=== PATIENT | female | born 1965 | race Caucasian/White ===

== ENCOUNTER 2016-11-05 13:08 | Emergency (ER) | payer OTHER ==
--- NOTE | 2016-11-05 14:49 | RAD ---
INDICATION: Short of breath COMPARISON: April 25, 2016 TECHNIQUE: PA and lateral dual-energy views were obtained. FINDINGS: Bones/Soft Tissues: There are no acute bony findings. Cardiomediastinal: The cardiomediastinal silhouette is normal. Lungs: There are no infiltrates. Pleura: There are no pleural effusions. Other: None IMPRESSION: NO ACTIVE DISEASE.
[2016-11-05 14:59] LABS: Urine Bacteria 1+ (Absent); Urine Bilirubin Negative (Negative); Urine Glucose Negative (Negative); Urine Nitrite Negative (Negative)
[2016-11-05 15:19] LABS: Hematocrit 41 % (35-47); Hemoglobin 13.7 g/dl (12.0-16.0); Mean Corpuscular HGB Conc 34 g/dl (31-36); Mean Corpuscular Hemoglobin 29 pg (27-31); Mean Corpuscular Volume 87 fL (80-97); Mean Platelet Volume 8 um3 (7.4-10.4); Red Blood Count 4.73 10^6/ul (4.0-5.4); Red Cell Distribution Width 14 % (10.5-15); White Blood Count 9.6 10^3/ul (3.5-10.8)
[2016-11-05 15:35] LABS: Albumin 4.5 g/dL (3.2-5.2); BUN/Creatinine Ratio 11.4 (8-20); Calcium 10.2 mg/dL (8.6-10.3); EGFR African American 98.7 (>60); EGFR Non-African American 76.7 (>60); Globulin 3.6 g/dL (2-4); Potassium 4.1 mmol/L (3.5-5.0); Total Bilirubin 0.3 mg/dL (0.2-1.0); Total Protein 8.1 g/dL (6.4-8.9)
[2016-11-05 16:31] VITALS: BP 134/74
--- NOTE | 2016-11-05 16:34 | RAD ---
INDICATION: Headache. COMPARISON: Comparison is made with a prior CT of the brain from April 25, 2016. TECHNIQUE: Contiguous axial sections of the brain were obtained from the skull base to the vertex without contrast. FINDINGS: The ventricles, cisterns and sulci are within normal limits. No significant focal abnormality or mass effect is seen. There is no evidence for hemorrhage. No significant focal osseous abnormality is seen. There is a mucous retention cyst or polyp present within the right maxillary sinus which is partially visualized measuring at least 1.2 cm in size. The visualized portion of the paranasal sinuses and mastoid air cells otherwise appear clear. IMPRESSION: NO EVIDENCE FOR GROSS ACUTE INFARCT, MASS EFFECT OR HEMORRHAGE.
== END 2016-11-05 17:29 | disposition home or self-care (01) ==
LOC: ED 13:08
DX: R06.00 Dyspnea, unspecified (principal)
CPT/HCPCS: 36415; 70450; 71020; 80053; 81003; 81015; 83605; 84484; 85025; 85379; 87086; 93005; 99282

== ENCOUNTER 2017-01-07 10:18 | Emergency (ER) | payer OTHER ==
--- NOTE | 2017-01-07 13:01 | RAD ---
Indication: Choking sensation. 2 views of the chest including dual energy PA views are reviewed and compared to previous exam dated November 05, 2016. No mediastinal shift is noted. Heart is of normal size and configuration. Lung snell are clear. IMPRESSION: No active cardiopulmonary disease is noted.
[2017-01-07 13:04] LABS: Hematocrit 44 % (35-47); Hemoglobin 14.5 g/dl (12.0-16.0); Mean Corpuscular HGB Conc 33 g/dl (31-36); Mean Corpuscular Hemoglobin 29 pg (27-31); Mean Corpuscular Volume 87 fL (80-97); Mean Platelet Volume 9 um3 (7.4-10.4); Red Blood Count 5.04 10^6/ul (4.0-5.4); Red Cell Distribution Width 14 % (10.5-15); White Blood Count 9.4 10^3/ul (3.5-10.8)
[2017-01-07 13:10] VITALS: BP 130/74
[2017-01-07 13:19] LABS: Albumin 4.9 g/dL (3.2-5.2); BUN/Creatinine Ratio 13.5 (8-20); Calcium 10.7 mg/dL (8.6-10.3); EGFR African American 78.8 (>60); EGFR Non-African American 61.3 (>60); Globulin 3.5 g/dL (2-4); Potassium 4.2 mmol/L (3.5-5.0); Total Bilirubin 0.3 mg/dL (0.2-1.0); Total Protein 8.4 g/dL (6.4-8.9)
--- NOTE | 2017-01-07 13:48 | ED ---
Shanice Hayes Matthew, scribed for Guru Guzmna MD on 01/07/17 at 1159 . Throat Pain/Nasal Congestion - HPI Summary HPI Summary: A 51 y/o female presents to the ED with intermittent throat tightness for the past month and she had an episode at 09:00 this morning. The episode started when she was sitting down talking. Shes had these symptoms before 2-3 times a day and they generally last 30-60 minutes. Associated symptoms include tingling in the hands bilaterally. The patient denies nausea, vomiting, SOB, dizziness, palpitations, diaphoresis, chest pain, and drooling. 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 Hx of bipolar disorder. She recently finished a course of Abx for bronchitis. - History of Current Complaint Chief Complaint: EDThroatPain Hx Obtained From: Patient Onset/Duration: Sudden Onset, Lasting Hours Severity: Mild Associated Signs And Symptoms: Negative: Dysphagia, FB Sensation, Drooling, Sinus Discomfort, Nasal Discharge Cough: None - Allergies/Home Medications Allergies/Adverse Reactions: Allergies Allergy/AdvReac Type Severity Reaction Status Date / Time Adhesive Tape Allergy Intermediate Rash Verified 12/31/16 18:16 Omeprazole [From Prilosec] Allergy Intermediate edema/hives Verified 12/31/16 18 :16 Pantoprazole [From Protonix] Allergy Intermediate Edema/hives Verified 12/31/16 18:16 Home Medications: Home Medications Albuterol HFA INHALER* [Ventolin HFA Inhaler*] 2 puff INH Q4H PRN 01/07/17 [ History Confirmed 01/07/17] Bupropion XL* [Wellbutrin XL *] 150 mg PO DAILY 01/07/17 [History Confirmed ] Calcium Carbonate-Cholecalcife [Calcium 500+D3 500-400 mg-Unit] 1 tab PO DAILY 01/07/17 [History Confirmed 01/07/17] Gemfibrozil TAB* [Lopid TAB*] 600 mg PO BID 01/07/17 [History Confirmed ] Levothyroxine TAB* [Synthroid TAB*] 88 mcg PO DAILY 01/07/17 [History Confirmed 01/07/17] OLANzapine TAB* [Zyprexa 10 MG TAB*] 20 mg PO BEDTIME 01/07/17 [History Confirmed 01/07/17] Zolpidem TAB* [Ambien TAB*] 10 mg PO BEDTIME PRN 01/07/17 [History Confirmed ] PMH/Surg Hx/FS Hx/Imm Hx Endocrine/Hematology History: Reports: Hx Thyroid Disease - hypo Denies: Hx Anticoagulant Therapy, Hx Diabetes Cardiovascular History: Denies: Hx Congestive Heart Failure, Hx Deep Vein Thrombosis, Hx Hypertension , Hx Myocardial Infarction, Hx Pacemaker/ICD Respiratory History: Reports: Hx Asthma - She has an "inhaler" but she has not used it for a "couple of months.", Hx Chronic Obstructive Pulmonary Disease ( COPD) Denies: Hx Lung Cancer, Hx Pneumonia, Hx Pulmonary Embolism GI History: Denies: Hx Gall Bladder Disease, Hx Gastrointestinal Bleed, Hx Ulcer, Hx Urosepsis History: Denies: Hx Kidney Stones, Hx Renal Disease Neurological History: Denies: Hx Dementia, Hx Migraine, Hx Seizures, Hx Transient Ischemic Attacks (TIA) Psychiatric History: Reports: Hx Bipolar Disorder Denies: Hx Anxiety, Hx Depression, Hx Schizophrenia - Surgical History Surgery Procedure, Year, and Place: tubal ligation, uterine ablation 2011 Infectious Disease History: No Infectious Disease History: Denies: History Other Infectious Disease, Traveled Outside the [place] in Last 30 Days - Family History Known Family History: Positive: Hypertension Negative: Cardiac Disease, Diabetes - Social History Alcohol Use: None Substance Use Type: Reports: None Smoking Status (MU): Former Smoker Type: Cigarettes Amount Used/How Often: 4 cigarettes daily Length of Time of Smoking/Using Tobacco: since age 12 Review of Systems Constitutional: Negative Negative: Skin Diaphoresis Eyes: Negative ENT: Other - intermittent throat tighting; NO drooling Cardiovascular: Negative Negative: Palpitations, Chest Pain Respiratory: Negative Negative: Shortness Of Breath Gastrointestinal: Negative Negative: Vomiting, Nausea Genitourinary: Negative Musculoskeletal: Negative Skin: Negative Neurological: Other - Tingling in the fingers bilaterally Psychological: Normal All Other Systems Reviewed And Are Negative: Yes Physical Exam - Summary Physical Exam Summary: Vital signs: reviewed General: Patient is comfortable lying in stretcher with no signs of distress HEENT: within normal limits Lungs: CTA B/L CVS: S1 & S2 present. No murmurs appreciated. ABDOMEN: Soft, non-tender. No signs of distention. No rebound no guarding, and no masses palpated. Bowel sounds are normal. EXTREMITIES: FROM in all major joints, no edema, no cyanosis or clubbing. NEURO: Alert and oriented x 3. No acute neurological deficits. Speech is normal and follows commands. SKIN: Dry and warm Triage Information Reviewed: Yes Vital Signs On Initial Exam: Initial Vitals Temp Pulse Resp BP Pulse Ox 98.2 F 70 16 126/67 98 01/07/17 11:26 01/07/17 11:26 01/07/17 11:26 01/07/17 11:26 01/07/17 11:26 Vital Signs Reviewed: Yes Diagnostics - Vital Signs Vital Signs Temp Pulse Resp BP Pulse Ox 01/07/17 11:38 98.7 F 70 16 126/67 98 01/07/17 11:26 98.2 F 70 16 126/67 98 - Laboratory Lab Results: Lab Results 01/07/17 01/07/17 Range/Units 12:55 12:55 WBC 9.4 (3.5-10.8) 10^3/ul RBC 5.04 (4.0-5.4) 10^6/ul Hgb 14.5 (12.0-16.0) g/dl Hct 44 (35-47) % MCV 87 (80-97) fL MCH 29 (27-31) pg MCHC 33 (31-36) g/dl RDW 14 (10.5-15) % Plt Count 385 (150-450) 10^3/ul MPV 9 (7.4-10.4) um3 Neut % (Auto) 57.6 (38-83) % Lymph % (Auto) 35.5 (25-47) % [place] % (Auto) 3.6 (1-9) % Eos % (Auto) 2.2 (0-6) % Baso % (Auto) 1.1 (0-2) % Absolute Neuts (auto) 5.4 (1.5-7.7) 10^3/ul Absolute Lymphs (auto) 3.3 (1.0-4.8) 10^3/ul Absolute Monos (auto) 0.3 (0-0.8) 10^3/ul Absolute Eos (auto) 0.2 (0-0.6) 10^3/ul Absolute Basos (auto) 0.1 (0-0.2) 10^3/ul Absolute Nucleated RBC 0.01 10^3/ul Nucleated RBC % 0.1 Sodium 138 (133-145) mmol/L Potassium 4.2 (3.5-5.0) mmol/L Chloride 99 L (101-111) mmol/L Carbon Dioxide 31 (22-32) mmol/L Anion Gap 8 (2-11) mmol/L BUN 13 (6-24) mg/dL Creatinine 0.96 H (0.51-0.95) mg/dL Est GFR ( Amer) 78.8 (>60) Est GFR (Non-Af Amer) 61.3 (>60) BUN/Creatinine Ratio 13.5 (8-20) Glucose 101 H (70-100) mg/dL Calcium 10.7 H (8.6-10.3) mg/dL Total Bilirubin 0.30 (0.2-1.0) mg/dL AST 16 (13-39) U/L ALT 16 (7-52) U/L Alkaline Phosphatase 163 H (34-104) U/L Total Protein 8.4 (6.4-8.9) g/dL Albumin 4.9 (3.2-5.2) g/dL Globulin 3.5 (2-4) g/dL Albumin/Globulin Ratio 1.4 (1-3) Result Diagrams: 01/07/17 12:55 01/07/17 12:55 Lab Statement: Any lab studies that have been ordered have been reviewed, and results considered in the medical decision making process. - Radiology CXR Xray Interpretation: No Acute Changes - IMPRESSION: No active cardiopulmonary disease is noted. Radiology Interpretation Completed By: Radiologist EENT Course/Dx - Course Assessment/Plan: A 51 y/o female presents to the ED with intermittent throat tightness for the past month and she had an episode at 09:00 this morning. The episode started when she was sitting down talking. Shes had these symptoms before 2-3 times a day and they generally last 30-60 minutes. Associated symptoms include tingling in the hands bilaterally. The patient denies nausea, vomiting, SOB, dizziness, palpitations, diaphoresis, chest pain, and drooling. 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 Hx of bipolar disorder. She recently finished a course of Abx for bronchitis. Blood work WNL expect for glucose 101, calcium of 10.7, and alkaline phosphatase of 163. CXR shows no active disease. In the ED course, the patient has remained stabled. She has no other complaints at this time. The choking sensation as resolved. Therefore, the patient will be discharged home with PCP follow-up. If the patient develops any other symptoms she was instructed to return to the ED. The patient is hemodynamically stable and A&Ox3. - Diagnoses Provider Diagnoses: Chucking sensation Discharge - Discharge Plan Condition: Stable Disposition: HOME Patient Education Materials: Dysphagia (ED) Referrals: Greta Lutz MD [Primary Care Provider] - 2 Days Additional Instructions: Please follow-up with your primary care physician in 2 days. The documentation as recorded by the Shanice ayala Matthew accurately reflects the service I personally performed and the decisions made by , Guru Guzman MD.
== END 2017-01-07 13:50 | disposition home or self-care (01) ==
LOC: ED 10:18
DX: R09.89 Other specified symptoms and signs involving the circulatory and respiratory systems (principal); Z87.891 Personal history of nicotine dependence
CPT/HCPCS: 36415; 71020; 80053; 85025; 99282

== ENCOUNTER 2017-01-14 08:11 | Emergency (ER) | payer OTHER ==
[2017-01-14 09:14] VITALS: BP 129/74
--- NOTE | 2017-01-14 09:33 | UC ---
General HPI - HPI Summary HPI Summary: ONSET OF SENSATION OF "BEING CHOKED" THIS MORNING WHILE SHE WAS WAITING FOR THE BUS. LASTED OVER AN HOUR. DENIES ANY ANXIETY OR PANIC AT THE TIME. NO PROBLEMS SWALLOWING OR EATING. HAS BEEN HAPPENING MOST DAYS FOR OVER A MONTH. WHEN SHE GOT HERE SHE DEVELOPED SOME PARESTHESIAS IN HER CHEEKS AND A MOLINA. WAS WONDERING IF HER BP WAS HIGH. AT TRIAGE WAS 142/78. RECHECK BP 129/74. - History of Current Complaint Chief Complaint: UCGeneralIllness Stated Complaint: FEEL LIKE BEING CHOKED Time Seen by Provider: 01/14/17 09:18 Hx Obtained From: Patient Onset/Duration: Sudden Onset, Lasting Weeks, Still Present Timing: Intermittent Episodes Lasting: Onset Severity: Moderate Current Severity: Moderate Pain Intensity: 7 - Allergy/Home Medications Allergies/Adverse Reactions: Allergies Allergy/AdvReac Type Severity Reaction Status Date / Time Adhesive Tape Allergy Intermediate Rash Verified 12/31/16 18:16 Omeprazole [From Prilosec] Allergy Intermediate edema/hives Verified 12/31/16 18 :16 Pantoprazole [From Protonix] Allergy Intermediate Edema/hives Verified 12/31/16 18:16 PMH/Surg Hx/FS Hx/Imm Hx Endocrine History Of: Reports: Thyroid Disease - hypo, Hypothyroidism, Dyslipidemia Denies: Diabetes, Hyperthyroidism Cardiovascular History Of: Denies: Cardiac Disorders, Hypertension, Pacemaker/ICD, Myocardial Infarction , Congestive Heart Failure, Atrial Fibrillation, Deep Vein Thrombosis, Bleeding Disorders Respiratory History Of: Reports: COPD, Asthma - She has an "inhaler" but she has not used it for a "couple of months." Denies: Bronchitis, Pneumonia, Pulmonary Embolism GI/ History Of: Denies: Gastroesophageal Reflux, Ulcer, Gastrointestinal Bleed, Gall Bladder Disease, Kidney Stones, Diverticulitis, Renal Disease, Urosepsis Neurological History Of: Denies: TIA, CVA, Dementia, Seizures, Migraine Psychological History Of: Reports: Bipolar Disorder Denies: Anxiety, Depression, Schizophrenia, Post Traumatic Stress Disorder Cancer History Of: Denies: Lung Cancer, Colorectal Cancer, Breast Cancer, Prostate Cancer, Cervical Cancer Other History Of: Negative For: HIV, Hepatitis B, Hepatitis C, Anticoagulant Therapy - Surgical History Surgical History: Yes Surgery Procedure, Year, and Place: tubal ligation, uterine ablation 2011 - Family History Known Family History: Positive: Hypertension Negative: Cardiac Disease, Diabetes - Social History Alcohol Use: None Substance Use Type: None Smoking Status (MU): Former Smoker Type: Cigarettes Amount Used/How Often: 4 cigarettes daily Length of Time of Smoking/Using Tobacco: since age 12 When Did the Patient Quit Smoking/Using Tobacco: 03/2014 Household Exposure Type: Cigarettes Review of Systems Constitutional: Negative Respiratory: Negative Cardiovascular: Negative Gastrointestinal: Negative Neurological: Headache, Paresthesia All Other Systems Reviewed And Are Negative: Yes Physical Exam Triage Information Reviewed: Yes Appearance: Well-Appearing, No Pain Distress, Well-Nourished Vital Signs: Initial Vital Signs Temp 97.9 F 01/14/17 08:16 Pulse 71 01/14/17 08:16 Resp 16 01/14/17 08:16 BP 142/78 01/14/17 08:16 Pulse Ox 100 01/14/17 08:16 Vital Signs Reviewed: Yes Eyes: Positive: Conjunctiva Clear ENT: Positive: Hearing grossly normal, Pharynx normal Neck: Positive: Supple, Nontender, No Lymphadenopathy Respiratory Exam: Normal Cardiovascular Exam: Normal Abdomen Description: Positive: Soft Musculoskeletal: Positive: No Edema Neurological: Positive: Alert Psychological: Positive: Age Appropriate Behavior Skin: Negative: rashes Course/Dx - Differential Dx - Multi-Symptom Provider Diagnoses: GLOBUS SENSATION Discharge - Discharge Plan Condition: Stable Disposition: HOME Referrals: Greta Lutz MD [Primary Care Provider] - (APPT SCHEDULED FOR TOMORROW AT 10 :20AM.) Additional Instructions: Globus sensation has been defined using the following criteria: The persistent or intermittent nonpainful sensation of a lump or foreign body in the throat Occurrence of the sensation between meals Absence of pain or difficulty swallowing Absence of evidence that gastroesophageal reflux is the cause of symptoms Absence of esophageal motility disorders Criteria fulfilled for the last three months with symptom onset at least six months before diagnosis. Symptoms persist in many patients despite a thorough diagnostic evaluation. Treatment in such patients is generally supportive. Although psychologic characteristics may influence the discomfort experienced by patients. GO TO ER WITHOUT FAIL IF YOU DEVELOP INABILITY TO SWALLOW FOOD/FLUIDS OR ANY OTHER CONCERNING SYMPTOMS OCCUR.
== END 2017-01-14 09:51 | disposition home or self-care (01) ==
LOC: UCEAST 08:11
DX: F45.8 Other somatoform disorders (principal); Z88.8 Allergy status to other drugs, medicaments and biological substances; Z91.048 Other nonmedicinal substance allergy status; E03.9 Hypothyroidism, unspecified; E78.5 Hyperlipidemia, unspecified; J44.9 Chronic obstructive pulmonary disease, unspecified; F31.9 Bipolar disorder, unspecified; Z87.891 Personal history of nicotine dependence
CPT/HCPCS: 99212; G0463

== ENCOUNTER 2017-01-19 14:48 | Emergency (ER) | payer OTHER ==
[2017-01-19 15:33] VITALS: BP 142/75
--- NOTE | 2017-01-19 16:32 | UC ---
Respiratory Complaint HPI - HPI Summary HPI Summary: 51 yo F with SOB and anxiety and a feeling of choking since Thu01/14/17. [facility] advised to follow up with her [facility]CP. She saw her doctor on 01/14/17 and her doctor started her on hydoxyzine 50mg tid. Pt took this med 3 times and felt like it did not help. Pt still has a feeling of "someone trying to strangle me". No cough, no fever. Feels like it is hard to breathe when she has this feeling that she is being strangled. Has had GERD in the past, but is allergic to PPI' s. Does not remember trying cimetidine or ranitidine. Does not feel like she has reflux. States she does not have a sore throat at all, no trouble swallowing, states she is certain she does not have strep. States she is taking her thyroid medication as usual, and has not had a goiter or thyroid mass that she knows of. Pt states she was in [place] ED on 01/17/17 and they started her on a medrol dose mary, but she never picked it up because [facility] pharmacy was closed. No cough, no sputum, no fever. Pt is able to eat and drink without difficulty. Of note during triage during standard questioning, pt stated that she did not trust her housemates in the rooming house where she lives. Pt specifically denies suicidal or homicidal ideation and is compliant with her medications. Pt is with a male significant other. - History of Current Complaint Chief Complaint: UCRespiratory Stated Complaint: SHORTNESS OF BREATH Time Seen by Provider: 01/19/17 15:32 Hx Obtained From: Patient, Family/Service Supervisor - male SO Hx Last Menstrual Period: ABLATION ?: No Onset/Duration: Gradual Onset, Lasting Days, Still Present Timing: Constant Severity Initially: Moderate Severity Currently: Moderate Pain Intensity: 0 Pain Scale Used: 0-10 Numeric Aggravating Factors: Nothing Alleviating Factors: Nothing Associated Signs And Symptoms: Negative: Negative - feels like she is being strangled - Allergies/Home Medications Allergies/Adverse Reactions: Allergies Allergy/AdvReac Type Severity Reaction Status Date / Time Adhesive Tape Allergy Intermediate Rash Verified 01/19/17 15:33 Omeprazole [From Prilosec] Allergy Intermediate edema/hives Verified 01/19/17 15 :33 Pantoprazole [From Protonix] Allergy Intermediate Edema/hives Verified 01/19/17 15:33 Home Medications: Home Medications Fluticasone-Salmeterol 250-50* [Advair Diskus 250-50*] 1 puff INH BID 01/19/17 [ History Confirmed 01/19/17] hydrOXYzine HCL TAB* [Atarax TAB 50 MG *] 50 mg PO DAILY PRN 01/19/17 [History Confirmed 01/19/17] PMH/Surg Hx/FS Hx/Imm Hx Endocrine History Of: Reports: Hypothyroidism, Dyslipidemia Denies: Diabetes, Hyperthyroidism Cardiovascular History Of: Denies: Cardiac Disorders, Hypertension, Pacemaker/ICD, Myocardial Infarction , Congestive Heart Failure, Atrial Fibrillation, Deep Vein Thrombosis, Bleeding Disorders Respiratory History Of: Reports: COPD Denies: Bronchitis, Pneumonia, Pulmonary Embolism GI/ History Of: Denies: Gastroesophageal Reflux, Ulcer, Gastrointestinal Bleed, Gall Bladder Disease, Kidney Stones, Diverticulitis, Renal Disease, Urosepsis Neurological History Of: Denies: TIA, CVA, Dementia, Seizures, Migraine Psychological History Of: Reports: Bipolar Disorder Denies: Anxiety, Depression, Schizophrenia, Post Traumatic Stress Disorder Cancer History Of: Denies: Lung Cancer, Colorectal Cancer, Breast Cancer, Prostate Cancer, Cervical Cancer Other History Of: Negative For: HIV, Hepatitis B, Hepatitis C, Anticoagulant Therapy - Surgical History Surgical History: Yes Surgery Procedure, Year, and Place: tubal ligation, uterine ablation 2011 - Family History Known Family History: Positive: Hypertension Negative: Cardiac Disease, Diabetes - Social History Alcohol Use: None Substance Use Type: None Smoking Status (MU): Former Smoker Type: Cigarettes Amount Used/How Often: 4 cigarettes daily Length of Time of Smoking/Using Tobacco: since age 12 When Did the Patient Quit Smoking/Using Tobacco: 03/2014 Household Exposure Type: Cigarettes Review of Systems Constitutional: Negative Skin: Negative Eyes: Negative ENT: Negative, Other - feels a choking sensation Respiratory: Negative Cardiovascular: Negative Gastrointestinal: Negative Genitourinary: Negative Motor: Negative Neurovascular: Negative Musculoskeletal: Negative Neurological: Negative Psychological: Negative All Other Systems Reviewed And Are Negative: Yes Physical Exam Triage Information Reviewed: Yes Appearance: Well-Appearing, No Pain Distress, Well-Nourished Vital Signs: Initial Vital Signs Temp 98.6 F 01/19/17 15:27 Pulse 71 01/19/17 15:27 Resp 18 01/19/17 15:27 BP 142/75 01/19/17 15:27 Pulse Ox 99 01/19/17 15:27 Vital Signs Reviewed: Yes Eyes: Positive: Conjunctiva Clear ENT: Positive: Hearing grossly normal, Pharynx normal, TMs normal, Other: - Pt is able to swallow water without problem.. Negative: Tonsillar swelling, Tonsillar exudate, Muffled/hoarse voice Neck: Positive: Supple, Nontender, No Lymphadenopathy, Other: - thyroid not enlarged, non palpable, no neck masses, points at the level of the cricothyroid for where she feels the choking sensation. Speaks full sentences, is in no respiratory distress Respiratory: Positive: Lungs clear, Normal breath sounds, No respiratory distress, No accessory muscle use Cardiovascular: Positive: RRR, No Murmur, Pulses Normal, Brisk Capillary Refill Musculoskeletal: Positive: Strength Intact, ROM Intact Neurological: Positive: Alert, Muscle Tone Normal Psychological Exam: Normal Skin Exam: Normal Diagnostic Evaluation - Laboratory O2 Sat by Pulse Oximetry: 99 Respiratory Course/Dx - Course Course Of Treatment: soft tissue neck-normal. Gave one dose of prednisone for any airway swelling. Pt describes this choking sensation since 01/14/17 and has been seen in [place] urgent care, by her own physician,Dr Lutz, by [place] ED and now here at [facility]. Despite having this choking sensation she appears in no respiratory distress and is able to swallow liquids. She does not have any narrowing or obstruction of soft tissue xray of the neck. This does not appear infectious. Treating with hydroxyzine for anxiety did not help. Will continue the steroid in the form of a medrol dose mary (which she had 12/31/16 also) and will RX an H2 benitez for possible GERD, and hope she is not allergic to that class of meds. Advise pt to go to ED if any worsening symptoms. Referral to foster care social worker requested to address pt's concerns about house mates in her rooming house. - Differential Dx/Diagnosis Differential Diagnosis/HQI/PQRI: Asthma, Bronchitis, Lower Resp Infection, Other - GERD, thyroid mass Provider Diagnoses: choking sensation. possible GERD Discharge - Discharge Plan Condition: Stable Disposition: HOME Prescriptions: Methylprednisolone [Medrol Dosepak 4 MG*] 4 mg PO .SEE MARY INSTRUCTION #1 mary Ranitidine TAB (NF) [Zantac TAB (NF)] 150 mg PO BID #30 tab Patient Education Materials: Gastroesophageal Reflux Disease (ED) Referrals: Greta Lutz MD [Primary Care Provider] - Additional Instructions: Your blood pressure today was 142/75. Keep track of this and be sure to see your doctor within a week for a recheck. The xray of your neck did not show any narrowing or abnormal swelling to explain your choking sensation. Dr. Stinson sent a prescription for ranitidine, which is in a different class of drugs than Prilosec or protonix, so hopefully you will not be allergic to this, and you may take this to treat possible GERD as the cause of your choking sensation. Dr. Stinson also gave you a dose of prednisone 40mg to help with any swelling in your neck or airway that may be giving this choking sensation. She sent another prescription for a medrol dosepak to the [facility] pharmacy. There may already be a prescription for a medrol dosepak at [facility] pharmacy for you from [facility] [place]. Do not take both prescriptions for the medrol dosepak. Take only one prescription for the medrol dosepak. The prescription for the ranitidine also went to [facility] pharmacy. You may stop the hydroxyzine if you feel it is not helping with anxiety. Please see Dr. Lutz again in the next 1-2 days so she knows you are still having these symptoms. Go to the ER if you have any trouble breathing, or are unable to swallow or have any new or worsening symptoms.
[2017-01-19] MEDS ORDERED: predniSONE TAB* 20 MG PO ONE (17:04)
--- NOTE | 2017-01-19 17:31 | RAD ---
INDICATION: Globus sensation COMPARISON: None TECHNIQUE: 2 views neck were obtained with soft tissue technique FINDINGS: There are no acute osseous findings. There is mild degenerative disc disease C5-C6. Prevertebral soft tissues are normal. The atlantodental interval is normal. The soft tissue elements of the neck to include the epiglottis are normal. IMPRESSION: NORMAL SOFT TISSUE NECK.
== END 2017-01-19 17:56 | disposition home or self-care (01) ==
LOC: UCCORT 14:48
DX: R09.89 Other specified symptoms and signs involving the circulatory and respiratory systems (principal); E03.9 Hypothyroidism, unspecified; E78.5 Hyperlipidemia, unspecified; J44.9 Chronic obstructive pulmonary disease, unspecified; F31.9 Bipolar disorder, unspecified; Z87.891 Personal history of nicotine dependence
CPT/HCPCS: 70360; 99212; G0463; J7512

== ENCOUNTER 2017-01-24 10:08 | Emergency (ER) | payer OTHER ==
[2017-01-24 10:38] VITALS: BP 142/75
--- NOTE | 2017-01-24 10:49 | UC ---
Respiratory Complaint HPI - HPI Summary HPI Summary: Pt presents with worsening nasal congestion and cough. - History of Current Complaint Chief Complaint: UCRespiratory Stated Complaint: HEAD CONGESTION Time Seen by Provider: 01/24/17 10:40 Hx Obtained From: Patient Hx Last Menstrual Period: ABLATION ?: No Onset/Duration: Gradual Onset Timing: Constant Severity Initially: Mild Severity Currently: Mild Character: Cough: Nonproductive Associated Signs And Symptoms: Positive: URI, Nasal Congestion - Risk Factors Pulmonary Embolism Risk Factors: Negative Cardiac Risk Factors: Negative Pseudomonas Risk Factors: Negative Tuberculosis Risk Factors: Negative - Allergies/Home Medications Allergies/Adverse Reactions: Allergies Allergy/AdvReac Type Severity Reaction Status Date / Time Adhesive Tape Allergy Intermediate Rash Verified 01/24/17 10:29 Omeprazole [From Prilosec] Allergy Intermediate edema/hives Verified 01/24/17 10 :29 Pantoprazole [From Protonix] Allergy Intermediate Edema/hives Verified 01/24/17 10:29 Loratadine [From Claritin] Allergy Rash Verified 01/24/17 10:29 PMH/Surg Hx/FS Hx/Imm Hx - Additional Past Medical History Additional PMH: has history of asthma Previously Healthy: Yes Respiratory History: Asthma Other History Of: Negative For: HIV, Hepatitis B, Hepatitis C, Anticoagulant Therapy - Surgical History Surgical History: Yes Surgery Procedure, Year, and Place: tubal ligation, uterine ablation 2011 - Family History Known Family History: Positive: Hypertension Negative: Cardiac Disease, Diabetes - Social History Alcohol Use: None Substance Use Type: None Smoking Status (MU): Former Smoker Type: Cigarettes Amount Used/How Often: 4 cigarettes daily Length of Time of Smoking/Using Tobacco: since age 12 When Did the Patient Quit Smoking/Using Tobacco: 03/2014 Household Exposure Type: Cigarettes Review of Systems Constitutional: Negative Skin: Negative Eyes: Negative ENT: Other - nasal congestion Respiratory: Shortness Of Breath - with exertion, Cough Cardiovascular: Negative Gastrointestinal: Negative Genitourinary: Negative Motor: Negative Neurovascular: Negative Musculoskeletal: Negative Neurological: Negative Psychological: Negative All Other Systems Reviewed And Are Negative: Yes Physical Exam Triage Information Reviewed: Yes Appearance: Ill-Appearing Vital Signs: Initial Vital Signs Temp 99.3 F 01/24/17 10:32 Pulse 83 01/24/17 10:32 Resp 20 01/24/17 10:32 BP 142/75 01/24/17 10:32 Pulse Ox 100 01/24/17 10:32 Vital Signs Reviewed: Yes Eye Exam: Normal ENT Exam: Other ENT: Positive: Nasal congestion, Other: - cerumen bilateral ears Neck exam: Normal Respiratory Exam: Normal Cardiovascular Exam: Normal Musculoskeletal Exam: Normal Neurological Exam: Normal Psychological Exam: Normal Skin Exam: Normal UC Diagnostic Evaluation - Laboratory O2 Sat by Pulse Oximetry: 100 Respiratory Course/Dx - Differential Dx/Diagnosis Differential Diagnosis/HQI/PQRI: Asthma, Bronchitis Provider Diagnoses: URI. allergic rhinitis. exacerbation of asthma Discharge - Discharge Plan Condition: Stable Disposition: HOME Prescriptions: Benzonatate CAP* [Tessalon 100 MG CAP*] 100 mg PO TID PRN #15 cap PRN Reason: Cough Fexofenadine-Pseudoephedrine [Ayala-D 24 Hour Allergy] 1 tab PO DAILY #10 tab Fluticasone NASAL * [Flonase *] 2 spray BOTH NARES DAILY #1 spray Patient Education Materials: Allergic Rhinitis (ED) Referrals: Greta Lutz MD [Primary Care Provider] - As Soon As Possible
== END 2017-01-24 11:17 | disposition home or self-care (01) ==
LOC: UCCORT 10:08
DX: J06.9 Acute upper respiratory infection, unspecified (principal); J45.901 Unspecified asthma with (acute) exacerbation; H61.23 Impacted cerumen, bilateral; Z88.8 Allergy status to other drugs, medicaments and biological substances; Z91.048 Other nonmedicinal substance allergy status; Z87.891 Personal history of nicotine dependence
CPT/HCPCS: 99212; G0463

== ENCOUNTER 2017-05-23 07:32 | Emergency (ER) | payer OTHER ==
[2017-05-23 07:55] VITALS: BP 154/81
--- NOTE | 2017-05-23 09:08 | UC ---
Charmaine Hayes Rebecca, scribed for Rosalinda Ortega MD on 05/23/17 at 0812 . Skin Complaint HPI - HPI Summary HPI Summary: Pt is a 52 y/o F accompanied her Maikel, who drove her here, to [facility] with c/o diffuse skin rash secondary to suspected bed bugs, present for 3 days. The rash is streaking in nature. Notes swelling with a pain severity of 9/10 in the L foot secondary to irritation. States that she has not been itching the skin. Additionally c/o chills. Denies pruritis, fever, abdominal pain, N/V/D, dysuria and hematuria. Pt reports that she has seen the bed bugs in her apartment, killed many of them, and has contacted her landlord about them who has not treated them. PMHx stage 3 renal failure. No Abx allergies. - History of Current Complaint Chief Complaint: [facility] Time Seen by Provider: 05/23/17 07:44 Stated Complaint: SWOLLEN FOOT Hx Obtained From: Patient Hx Last Menstrual Period: ABLATION Onset/Duration: Lasting Days - 3 days, Still Present Current Severity: Severe Pain Intensity: 9 Pain Scale Used: 0-10 Numeric Location: Foot (Left) Character: Pain Aggravating Factor(s): Nothing Alleviating Factor(s): Nothing Associated Signs & Symptoms: Positive: Chills. Negative: Fever, Abdominal Pain - Allergy/Home Medications Allergies/Adverse Reactions: Allergies Allergy/AdvReac Type Severity Reaction Status Date / Time Adhesive Tape Allergy Intermediate Rash Verified 05/23/17 07:48 Omeprazole [From Prilosec] Allergy Intermediate edema/hives Verified 05/23/17 07 :48 Pantoprazole [From Protonix] Allergy Intermediate Edema/hives Verified 05/23/17 07:48 Loratadine [From Claritin] Allergy Rash Verified 05/23/17 07:48 Review of Systems Constitutional: Chills Skin: Rash - Diffuse streaking rash secondary to suspected bed bugs, Other - Pain and swelling in the L foot secondary to irritation Eyes: Negative ENT: Negative Respiratory: Negative Cardiovascular: Negative Gastrointestinal: Negative Genitourinary: Negative Motor: Negative Neurovascular: Negative Musculoskeletal: Negative Neurological: Negative Psychological: Negative All Other Systems Reviewed And Are Negative: Yes - Comments Additional Review of Systems Comments: NEGATIVE: Pruritis, fever, abdominal pain, N/V/D, dysuria and hematuria PMH/Surg Hx/FS Hx/Imm Hx Endocrine History: Thyroid Disease, Dyslipidemia - HLD Respiratory History: COPD, Asthma GI/ History: Renal Disease Other GI/ History: Stage 3 renal failure Psychological History: Bipolar Disorder Other History Of: Negative For: HIV, Hepatitis B, Hepatitis C, Anticoagulant Therapy - Surgical History Surgical History: Yes Surgery Procedure, Year, and Place: tubal ligation, uterine ablation 2011 - Family History Known Family History: Positive: Hypertension Negative: Cardiac Disease, Diabetes - Social History Alcohol Use: None Substance Use Type: None Smoking Status (MU): Former Smoker Type: Cigarettes Amount Used/How Often: 4 cigarettes daily Length of Time of Smoking/Using Tobacco: since age 12 When Did the Patient Quit Smoking/Using Tobacco: 03/2014 Household Exposure Type: Cigarettes Physical Exam Triage Information Reviewed: Yes Vital Signs: Initial Vital Signs Temp 98.4 F 05/23/17 07:51 Pulse 79 05/23/17 07:51 Resp 16 05/23/17 07:51 BP 154/81 05/23/17 07:51 Pulse Ox 100 05/23/17 07:51 Vital Signs Reviewed: Yes - Additional Comments Appearance: Well-appearing Eyes: Normal, Conjunctiva clear ENT: Normal ENT inspection. Dental: Normal Neck: Supple, non-tender, no lymphadenoatphy Lungs: Lungs clear, normal breath sounds, no respiratory distress, no accessory muscle use. Heart: RRR, no murmur, pulses normal. Abdomen: Nontender, soft. Musculoskeletal: Normal Neurological: Normal Psychiatric: Normal Skin: The L foot has mild swelling on the dorsal surface with some excoriated areas. There are some vesicular areas that have not yet ruptured and there is no discharge. Extensive excoriation on the bilateral legs, arms and abdomen and the rash is streaking in nature. Course/Dx - Course Course Of Treatment: Pt is a 52 y/o F accompanied her Maikel, who drove her here, to [facility] with c/o diffuse skin rash secondary to suspected bed bugs, present for 3 days. The rash is streaking in nature. Notes pain severity of 9/10 in the L foot secondary to irritation. States that she has not been itching the skin. Additionally c/o chills. Denies pruritis, fever, abdominal pain, N/V/D, dysuria and hematuria. Pt reports that she has seen the bed bugs in her apartment, killed many of them, and has contacted her landlord about them who has not treated them. PMHx stage 3 renal failure. Will avoid quinolones b/c kidney disease. Pt will be D/C to home with Dx of cellulitis and bed bugs with Rx for Acetaminophen and Keflex and a follow up with her PCP. She understands and agrees. Allergies noted. Elevated BP noted. - Diagnoses Provider Diagnoses: 1. Cellulitis. 2. Bed bugs Discharge - Discharge Plan Condition: Stable Disposition: HOME Prescriptions: Acetaminophen [Eq Acetaminophen] 650 mg PO Q6HR PRN #60 tab PRN Reason: Pain Cephalexin CAP* [Keflex CAP*] 500 mg PO TID #30 cap Referrals: Greta Lutz MD [Primary Care Provider] - The documentation as recorded by the Charmaine ayala Rebecca accurately reflects the service I personally performed and the decisions made by , Rosalinda Ortega MD.
== END 2017-05-23 09:15 | disposition home or self-care (01) ==
LOC: UCEAST 07:32
DX: S80.812A Abrasion, left lower leg, initial encounter (principal); S80.811A Abrasion, right lower leg, initial encounter; S40.812A Abrasion of left upper arm, initial encounter; S40.811A Abrasion of right upper arm, initial encounter; S30.811A Abrasion of abdominal wall, initial encounter; L03.90 Cellulitis, unspecified; R68.83 Chills (without fever); W57.XXXA Bitten or stung by nonvenomous insect and other nonvenomous arthropods, initial encounter; Y93.9 Activity, unspecified; Y92.039 Unspecified place in apartment as the place of occurrence of the external cause; E07.9 Disorder of thyroid, unspecified; E78.5 Hyperlipidemia, unspecified; J44.9 Chronic obstructive pulmonary disease, unspecified; N18.3 Chronic kidney disease, stage 3 (moderate); F31.9 Bipolar disorder, unspecified; Z87.891 Personal history of nicotine dependence
CPT/HCPCS: 99213; G0463

== ENCOUNTER → 2017-06-10 14:03 | Emergency (ER) | payer OTHER ==
[~2017-06-10 14:03] MED LIST: Calcium/Vitamin D TAB 250/125* TAB PO SCH; Famotidine TAB* 20 MG PO SCH; Gemfibrozil TAB* 600 MG PO ONE; Hydroxychloroquine TAB* 200 MG PO SCH; Melatonin (NF) ** ENTER STRENGTH IN LABEL DIRECTIONS PO SCH; OLANzapine TAB*ODT* 10 MG TAB PO ONE; Zolpidem TAB* 10 MG PO ONE
[2017-06-10 14:10] VITALS: BP 145/72
[2017-06-10 14:45] LABS: Hematocrit 40 % (35-47); Hemoglobin 13.5 g/dl (12.0-16.0); Mean Corpuscular HGB Conc 34 g/dl (31-36); Mean Corpuscular Hemoglobin 30 pg (27-31); Mean Corpuscular Volume 88 fL (80-97); Mean Platelet Volume 9 um3 (7.4-10.4); Red Blood Count 4.55 10^6/ul (4.0-5.4); Red Cell Distribution Width 14 % (10.5-15); White Blood Count 9.3 10^3/ul (3.5-10.8)
[2017-06-10 14:47] LABS: Add Diff/Slide Review? Slide Review Added; Comments Flag Yes
[2017-06-10 15:03] LABS: ALT 34 U/L (7-52); AST 33 U/L (13-39); Albumin 4.3 g/dL (3.2-5.2); Alkaline Phosphatase 136 U/L (34-104); Anion Gap 7 mmol/L (2-11); BUN/Creatinine Ratio 21.4 (8-20); Blood Urea Nitrogen 21 mg/dL (6-24); CO2 Carbon Dioxide 26 mmol/L (22-32); Calcium 9.6 mg/dL (8.6-10.3); Chloride 104 mmol/L (101-111); EGFR African American 76.6 (>60); EGFR Non-African American 59.6 (>60); Glucose 105 mg/dL (70-100); Potassium 3.8 mmol/L (3.5-5.0); Sodium 137 mmol/L (133-145); Total Protein 7.3 g/dL (6.4-8.9)
[2017-06-10 15:19] LABS: Urine Bacteria Absent (Absent); Urine Bilirubin Negative (Negative); Urine Glucose Negative (Negative); Urine Nitrite Negative (Negative)
[2017-06-10 15:24] LABS: Acetaminophen < 15 mcg/mL; Alcohol < 10 mg/dL (<10); Salicylate < 2.50 mg/dL (<30)
[2017-06-10 15:24] LABS: Benzodiazepine Urine Screen None Detected (None Detect)
[2017-06-10 15:39] LABS: TSH (Thyroid Stimulating Horm) 0.58 mcIU/mL (0.34-5.60)
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
== END ==
LOC: ED 14:03
DX: G47.9 Sleep disorder, unspecified (principal); Z87.891 Personal history of nicotine dependence; F41.9 Anxiety disorder, unspecified
CPT/HCPCS: 36415; 80053; 80307; 80320; 80329; 81003; 81015; 84443; 85025; 87086; 99282; A9270-GY; G0480

== ENCOUNTER 2017-06-15 17:51 | Emergency (ER) | payer OTHER ==
[2017-06-15 18:20] VITALS: BP 143/74
--- NOTE | 2017-06-15 19:06 | UC ---
Back Pain HPI - History of Current Complaint Chief Complaint: UCBackPain Stated Complaint: BACK STRAIN Time Seen by Provider: 06/15/17 19:06 Hx Last Menstrual Period: ABLATION - Allergies/Home Medications Allergies/Adverse Reactions: Allergies Allergy/AdvReac Type Severity Reaction Status Date / Time Adhesive Tape Allergy Intermediate Rash Verified 06/15/17 18:20 Omeprazole [From Prilosec] Allergy Intermediate edema/hives Verified 06/15/17 18 :20 Pantoprazole [From Protonix] Allergy Intermediate Edema/hives Verified 06/15/17 18:20 Loratadine [From Claritin] Allergy Rash Verified 06/15/17 18:20 Home Medications: Home Medications predniSONE TAB* [Deltasone TAB*] 1 tab PO DAILY 06/15/17 [History Confirmed ] PMH/Surg Hx/FS Hx/Imm Hx Other History Of: Negative For: HIV, Hepatitis B, Hepatitis C, Anticoagulant Therapy - Surgical History Surgical History: Yes Surgery Procedure, Year, and Place: tubal ligation, uterine ablation 2011 - Family History Known Family History: Positive: Hypertension Negative: Cardiac Disease, Diabetes - Social History Alcohol Use: None Substance Use Type: None Smoking Status (MU): Current Every Day Smoker Type: Cigarettes Amount Used/How Often: 4 cigarettes daily Length of Time of Smoking/Using Tobacco: since age 12 When Did the Patient Quit Smoking/Using Tobacco: 03/2014 Household Exposure Type: Cigarettes Physical Exam Vital Signs: Initial Vital Signs Temp 97.3 F 06/15/17 18:17 Pulse 92 06/15/17 18:17 Resp 18 06/15/17 18:17 BP 143/74 06/15/17 18:17 Pulse Ox 100 06/15/17 18:17
--- NOTE | 2017-06-15 20:12 | UC ---
Back Pain HPI - HPI Summary HPI Summary: 52 year old female presents with lower back pain after lifting a heavy box at [facility]. - History of Current Complaint Chief Complaint: UCBackPain Stated Complaint: BACK STRAIN Time Seen by Provider: 06/15/17 19:06 Hx Obtained From: Patient Hx Last Menstrual Period: ABLATION Onset/Duration: Sudden Onset Timing: Constant Severity Initially: Moderate Severity Currently: Moderate Pain Scale Used: 0-10 Numeric - 8 Character: Sharp Aggravating Factor(s): Movement - Allergies/Home Medications Allergies/Adverse Reactions: Allergies Allergy/AdvReac Type Severity Reaction Status Date / Time Adhesive Tape Allergy Intermediate Rash Verified 06/15/17 18:20 Omeprazole [From Prilosec] Allergy Intermediate edema/hives Verified 06/15/17 18 :20 Pantoprazole [From Protonix] Allergy Intermediate Edema/hives Verified 06/15/17 18:20 Loratadine [From Claritin] Allergy Rash Verified 06/15/17 18:20 Home Medications: Home Medications predniSONE TAB* [Deltasone TAB*] 1 tab PO DAILY 06/15/17 [History Confirmed ] PMH/Surg Hx/FS Hx/Imm Hx Previously Healthy: Yes Other History Of: Negative For: HIV, Hepatitis B, Hepatitis C, Anticoagulant Therapy - Surgical History Surgical History: Yes Surgery Procedure, Year, and Place: tubal ligation, uterine ablation 2011 - Family History Known Family History: Positive: Hypertension Negative: Cardiac Disease, Diabetes - Social History Alcohol Use: None Substance Use Type: None Smoking Status (MU): Current Every Day Smoker Type: Cigarettes Amount Used/How Often: 4 cigarettes daily Length of Time of Smoking/Using Tobacco: since age 12 When Did the Patient Quit Smoking/Using Tobacco: 03/2014 Household Exposure Type: Cigarettes Review of Systems Constitutional: Negative Skin: Negative Eyes: Negative ENT: Negative Respiratory: Negative Cardiovascular: Negative Gastrointestinal: Negative Genitourinary: Negative Motor: Negative Neurovascular: Negative Musculoskeletal: Other: - back pain Neurological: Negative Psychological: Negative All Other Systems Reviewed And Are Negative: Yes Physical Exam Triage Information Reviewed: Yes Vital Signs: Initial Vital Signs Temp 36.3 C 06/15/17 18:17 Pulse 92 06/15/17 18:17 Resp 18 06/15/17 18:17 BP 143/74 06/15/17 18:17 Pulse Ox 100 06/15/17 18:17 Vital Signs Reviewed: Yes Eye Exam: Normal ENT Exam: Normal Dental Exam: Normal Neck exam: Normal Neck: Positive: 1 Respiratory Exam: Normal Cardiovascular Exam: Normal Abdominal Exam: Normal Musculoskeletal: Positive: Other: - back pain Neurological Exam: Normal Psychological Exam: Normal Skin Exam: Normal Back Pain Course/Dx - Differential Dx/Diagnosis Provider Diagnoses: back pain\. uti Discharge - Discharge Plan Condition: Stable Disposition: HOME Prescriptions: Cephalexin CAP* [Keflex CAP*] 500 mg PO TID #15 cap Meloxicam [Mobic] 7.5 mg PO BID PC #30 tab Methocarbamol TAB* [Robaxin 500 MG TAB*] 500 mg PO TID PRN #30 tab PRN Reason: Spasms - Back Patient Education Materials: Urinary Tract Infection in Women (ED), Acute Low Back Pain (ED) Forms: *Work Release Referrals: [facility] [place],PT [Medical Doctor] - Greta Lutz MD [Primary Care Provider] -
--- NOTE | 2017-06-18 08:00 | UC ---
Progress - Progress Note Progress Note: if not already instructed to do so she should stop her antibiotic that was prescribed here no UTI
== END 2017-06-15 19:54 | disposition home or self-care (01) ==
LOC: UCEAST 17:51
DX: M54.5 Low back pain (principal); N39.0 Urinary tract infection, site not specified; Z88.8 Allergy status to other drugs, medicaments and biological substances; F17.210 Nicotine dependence, cigarettes, uncomplicated
CPT/HCPCS: 81003; 87086; 99212; G0463

== ENCOUNTER 2017-06-16 09:33 | Emergency (ER) | payer SELFPAY ==
[2017-06-16 09:43] VITALS: BP 150/82
[2017-06-16] MEDS ORDERED: Acetaminop/Codeine 30 MG TAB* 1 TAB (300 MG/30 MG) PO ONE (10:19)
--- NOTE | 2017-06-16 10:25 | ED ---
Complex/Multi-Sys Presentation - HPI Summary HPI Summary: 52 female presents to ED with multiple complaints. Patient states she sustained a back injury while lifting heavy boxes while at work 2 days ago. Was seen by [facility] given muscle relaxer and anti-inflammatory which do not seem to be helping her. Movement makes back pain worse. Was unable to sleep last night due to the back pain and cough. Patient states she is also suffering from a URI and has a productive cough for the past few days. Seen at [facility] urgent care yesterday and also given prednisone, tessalon pearls and inhaler. She is still however complaining the cough is keeping her up and the medication doesn't seem to be helping. Was also diagnosed with UTI, placed on keflex. No urinary complaints at this time. Last night around 3 am had an episode of vomiting. Has one more since. No abdominal pain. Has been eating and drinking. Took all prescribed medications today as instructed. Is requesting a back x-ray as she is concerned about a slipped disc. No other complaints at this time. PMHx significant for DM , bipolar and COPD. Is currently homeless and living at [facility]. Denies fever, chills, chest pain, headache and difficulty breathing. Denies saddle anesthesia , weakness, numbness/tingling and bladder/bowel incontinence. - History Of Current Complaint Chief Complaint: EDGeneral Time Seen by Provider: 06/16/17 09:45 Hx Obtained From: Patient Onset/Duration: Sudden Onset, Lasting Days, Still Present Timing: Constant Severity Currently: Moderate Severity Initially: Moderate Location: Pain At: - "entire spine" Character: Sharp Aggravating Factor(s): movement, laying down Alleviating Factor(s): none Associated Signs And Symptoms: Positive: Cough, Vomiting, Other - back pain - Allergies/Home Medications Allergies/Adverse Reactions: Allergies Allergy/AdvReac Type Severity Reaction Status Date / Time Adhesive Tape Allergy Intermediate Rash Verified 06/15/17 18:20 Omeprazole [From Prilosec] Allergy Intermediate edema/hives Verified 06/15/17 18 :20 Pantoprazole [From Protonix] Allergy Intermediate Edema/hives Verified 06/15/17 18:20 Loratadine [From Claritin] Allergy Rash Verified 06/15/17 18:20 PMH/Surg Hx/FS Hx/Imm Hx Endocrine/Hematology History: Reports: Hx Diabetes, Hx Thyroid Disease Denies: Hx Anticoagulant Therapy Cardiovascular History: Denies: Hx Congestive Heart Failure, Hx Deep Vein Thrombosis, Hx Hypertension , Hx Myocardial Infarction, Hx Pacemaker/ICD Respiratory History: Reports: Hx Asthma, Hx Chronic Obstructive Pulmonary Disease (COPD) Denies: Hx Lung Cancer, Hx Pneumonia, Hx Pulmonary Embolism GI History: Denies: Hx Gall Bladder Disease, Hx Gastrointestinal Bleed, Hx Ulcer, Hx Urosepsis History: Denies: Hx Kidney Stones, Hx Renal Disease Neurological History: Denies: Hx Dementia, Hx Migraine, Hx Seizures, Hx Transient Ischemic Attacks (TIA) Psychiatric History: Reports: Hx Bipolar Disorder Denies: Hx Anxiety, Hx Depression, Hx Schizophrenia - Surgical History Surgery Procedure, Year, and Place: tubal ligation, uterine ablation 2011 - Immunization History Immunizations Up to Date: Yes Infectious Disease History: No Infectious Disease History: Denies: Hx Clostridium Difficile, Hx Hepatitis, Hx Human Immunodeficiency Virus (HIV), Hx of Known/Suspected MRSA, Hx Shingles, Hx Tuberculosis, Hx Known/ Suspected VRE, Hx Known/Suspected VRSA, History Other Infectious Disease, Traveled Outside the [place] in Last 30 Days - Family History Known Family History: Positive: Hypertension Negative: Cardiac Disease, Diabetes - Social History Alcohol Use: None Substance Use Type: Reports: None Smoking Status (MU): Current Every Day Smoker Type: Cigarettes Amount Used/How Often: 4 cigarettes daily Length of Time of Smoking/Using Tobacco: since age 12 Review of Systems Constitutional: Negative Eyes: Negative Positive: Nasal Discharge Cardiovascular: Negative Positive: Cough Positive: Vomiting Genitourinary: Negative Positive: Arthralgia, Myalgia - back Skin: Negative Neurological: Negative All Other Systems Reviewed And Are Negative: Yes Physical Exam Triage Information Reviewed: Yes Vital Signs On Initial Exam: Initial Vitals Temp Pulse Resp BP Pulse Ox 98.2 F 96 20 150/82 98 06/16/17 09:39 06/16/17 09:39 06/16/17 09:39 06/16/17 09:39 06/16/17 09:39 Vital Signs Reviewed: Yes Appearance: Positive: No Pain Distress, Well-Nourished, Ill-Appearing - appears , congested and fatigued Skin: Positive: Warm, Skin Color Reflects Adequate Perfusion, Dry, Other - no ecchymosis, edema, crepitus, step off or erythema. Negative: Cold, Cyanosis @, Erythema @ Head/Face: Positive: Normal Head/Face Inspection Eyes: Positive: EOMI, OMID, Conjunctiva Clear ENT: Positive: Normal ENT inspection, Hearing grossly normal, Pharynx normal, Nasal congestion, TMs normal Dental: Negative: Percussion Tenderness @ Neck: Positive: Supple, Nontender, No Lymphadenopathy Respiratory/Lung Sounds: Positive: Clear to Auscultation, Breath Sounds Present. Negative: Rales, Rhonchi, Wheezes Cardiovascular: Positive: Normal, RRR, Pulses are Symmetrical in both Upper and Lower Extremities. Negative: Murmur, Rub Abdomen Description: Positive: Nontender, No Organomegaly, Soft. Negative: Bruit, CVA Tenderness (R), CVA Tenderness (L), Distended, Guarding, Peritoneal Signs Bowel Sounds: Positive: Present Musculoskeletal: Positive: Normal, Strength/ROM Intact. Negative: Pain @ Neurological: Positive: Normal, Sensory/Motor Intact, Alert, Oriented to Person Place, Time, CN Intact II-III, Reflexes Intact, NV Bundle Intact Distally, Normal Gait - Ines Coma Scale Coma Scale Total: 15 Diagnostics - Vital Signs Vital Signs Temp Pulse Resp BP Pulse Ox 06/16/17 09:39 98.2 F 96 20 150/82 98 - Laboratory Result Diagrams: 06/16/17 10:31 06/16/17 10:31 Lab Statement: Any lab studies that have been ordered have been reviewed, and results considered in the medical decision making process. - Radiology chest Xray Interpretation: No Acute Changes - No active cardiopulmonary disease is noted. Radiology Interpretation Completed By: Radiologist thoracic/lumbosacral Xray Interpretation: No Acute Changes - Degenerative changes of the thoracic spine as described above. Degenerative disc disease at L5-S1. Radiology Interpretation Completed By: Radiologist Re-Evaluation - Re-Evaluation First Eval Re-Evaluation Time: 11:45 Change: Improved - better after medication, much improved. asymptomatic. updated on image results and lab results. ready to be d/c Complex Multi-Symp Course/Dx Course Of Treatment: labs obtained, unremarkable. patient requested xrays and to check [id number]. xrays of back and chest obtained. chest obtianed to rule out pneumonia as patient does have COPD. normal vitals. had relief after tylenol with codeine. recommended to give symptoms 2-3 more days as medications need some time to start working. continue antibiotic for URI and UTI. prednisone, inhaler and mobic. is no longer vomiting, or having nausea since 7am this morning. patient understands and agrees with plan. is aware of worsening signs and symptoms to watch out for. continue taking medications previously prescribed for back pain, UTI and URI. Follow up with PCP within the next week, sooner if needed. - Diagnoses Differential Diagnoses/HQI/PQRI: Urinary Tract Infection, Other - URI, lumbosacrall strain, fracture, pnemmonia, vomiting Provider Diagnoses: URI (upper respiratory infection), Lumbosacral strain Discharge - Discharge Plan Condition: Stable Disposition: HOME Prescriptions: Acetaminop/Codeine 30 MG TAB* [Tylenol/Codeine 30 MG TAB*] 1 tab PO Q6H PRN #10 tab MDD 2 PRN Reason: Cough Patient Education Materials: Low Back Strain (ED), Upper Respiratory Infection (ED) Referrals: Greta Lutz MD [Primary Care Provider] - Additional Instructions: Continue taking medications as previously prescribed. Take tylenol with codeine as needed for break through pain and for cough as directed. Rest, apply heating pad and avoid overuse. Drink plenty of fluids and get plenty of rest. Follow up with primary care provider within 1 week to ensure improvement. New or worsening symptoms please seek medical attention sooner/promptly.
[2017-06-16 10:50] LABS: Hematocrit 40 % (35-47); Hemoglobin 13.3 g/dl (12.0-16.0); Mean Corpuscular HGB Conc 34 g/dl (31-36); Mean Corpuscular Hemoglobin 29 pg (27-31); Mean Corpuscular Volume 87 fL (80-97); Mean Platelet Volume 9 um3 (7.4-10.4); Red Blood Count 4.55 10^6/ul (4.0-5.4); Red Cell Distribution Width 14 % (10.5-15); White Blood Count 11.5 10^3/ul (3.5-10.8)
[2017-06-16 10:51] LABS: Add Diff/Slide Review? Slide Review Added; Comments Flag Yes
[2017-06-16 11:09] LABS: Albumin 4.5 g/dL (3.2-5.2); BUN/Creatinine Ratio 25.6 (8-20); C Reactive Protein 14.41 mg/L (< 5.00); Calcium 10.2 mg/dL (8.6-10.3); EGFR African American 99.7 (>60); EGFR Non-African American 77.6 (>60); Globulin 3.6 g/dL (2-4); Potassium 3.9 mmol/L (3.5-5.0); Total Bilirubin 0.3 mg/dL (0.2-1.0); Total Protein 8.1 g/dL (6.4-8.9)
[2017-06-16 11:18] LABS: Platelet Morphology Large
--- NOTE | 2017-06-16 11:18 | RAD ---
Indication: Back pain. 5 views of lumbar spine demonstrates vertebral bodies to be normal in height. Disc space narrowing at L5-S1 with endplate sclerosis and osteophyte formation is noted. The remainder of the disc spaces all well-preserved. Pedicles appear intact. IMPRESSION: Degenerative disc disease at L5-S1.
--- NOTE | 2017-06-16 11:18 | RAD ---
Indication: Cough. 2 views of the chest including dual energy PA views demonstrates no mediastinal shift. Heart is of normal size and configuration. Lung snell are clear. Overall no changes noted since January 07, 2017. IMPRESSION: No active cardiopulmonary disease is noted.
--- NOTE | 2017-06-16 11:20 | RAD ---
INDICATION: Back pain following injury COMPARISON: Chest x-ray dated January 07, 2017 TECHNIQUE: 2 views of the thoracic spine were obtained. FINDINGS: On the AP view the thoracic vertebral bodies are anatomically aligned. On the lateral view there is slight exaggeration of the normal thoracic kyphosis. Degenerative changes include loss of intervertebral disc height at the mid-level and lower thoracic spine with mild early marginal osteophyte formation. There is slight loss of intervertebral disc height at a lower thoracic vertebral body, likely T10. There are no acute findings such as cortical discontinuity or retropulsion of fragments. IMPRESSION: Degenerative changes of the thoracic spine as described above.
== END 2017-06-16 12:05 | disposition home or self-care (01) ==
LOC: ED 09:33
DX: S33.5XXA Sprain of ligaments of lumbar spine, initial encounter (principal); J06.9 Acute upper respiratory infection, unspecified; E11.9 Type 2 diabetes mellitus without complications; J45.909 Unspecified asthma, uncomplicated; J44.9 Chronic obstructive pulmonary disease, unspecified; F17.210 Nicotine dependence, cigarettes, uncomplicated; N39.0 Urinary tract infection, site not specified; M51.37 Other intervertebral disc degeneration, lumbosacral region; X50.0XXA Overexertion from strenuous movement or load, initial encounter; Y92.89 Other specified places as the place of occurrence of the external cause
CPT/HCPCS: 36415; 71020; 72070; 72110; 80053; 83036; 85025; 86140; 99282; A9270-GY

== ENCOUNTER → 2017-06-17 08:48 | Emergency (ER) | payer SELFPAY ==
[~2017-06-17 08:48] MED LIST changes: -Calcium/Vitamin D TAB 250/125* TAB PO SCH; +Dexamethasone IV* 4 MG/ML 1 ML (4 MG) IM ONE; -Famotidine TAB* 20 MG PO SCH; -Gemfibrozil TAB* 600 MG PO ONE; -Hydroxychloroquine TAB* 200 MG PO SCH; +Ketorolac INJ* 60 MG/2 ML VIAL IM ONE; -Melatonin (NF) ** ENTER STRENGTH IN LABEL DIRECTIONS PO SCH; -OLANzapine TAB*ODT* 10 MG TAB PO ONE; +Orphenadrine Citrate IV* 30 MG/ML 2 ML VIAL IM ONE; -Zolpidem TAB* 10 MG PO ONE
[2017-06-17 09:08] VITALS: BP 120/73
--- NOTE | 2017-06-18 16:25 | ED ---
Gianni Hayes Angela, scribed for Guru Guzman MD on 06/17/17 at 0945 . Back Pain - HPI Summary HPI Summary: This pt is a 52 y/o female presenting to [facility] c/o back pain x3 days. Pt reports she was doing heavy lifting of boxes prior to onset of her back pain. She notes having tingling in left foot. Pt states she has trouble sleeping secondary to her pain. Pt denies urinary or bowel incontinence. She notes she was seen in the ED yesterday and had X-rays done that showed degenerative disc disease but no fracture. She was prescribed tylenol with codeine but has had no relief. Pt has a UTI and is currently on Ceflex. Pt also has an upper respiratory infection and is on Flexaril. - History of Current Complaint Chief Complaint: EDBackInjuryPain Stated Complaint: BACK PAIN Time Seen by Provider: 06/17/17 09:26 Hx Obtained From: Patient Hx Last Menstrual Period: ABLATION Onset/Duration: Lasting Days, Still Present Onset/Duration: Started Days Ago Timing: Lasting Days Back Pain Location: Is Discrete @ - back pain Severity Currently: Severe Pain Intensity: 9 Pain Scale Used: 0-10 Numeric Associated Signs And Symptoms: Negative: Bladder Incontinence, Bowel Incontinence - Allergies/Home Medications Allergies/Adverse Reactions: Allergies Allergy/AdvReac Type Severity Reaction Status Date / Time Adhesive Tape Allergy Intermediate Rash Verified 06/15/17 18:20 Omeprazole [From Prilosec] Allergy Intermediate edema/hives Verified 06/15/17 18 :20 Pantoprazole [From Protonix] Allergy Intermediate Edema/hives Verified 06/15/17 18:20 Loratadine [From Claritin] Allergy Rash Verified 06/15/17 18:20 PMH/Surg Hx/FS Hx/Imm Hx Endocrine/Hematology History: Reports: Hx Diabetes, Hx Thyroid Disease Denies: Hx Anticoagulant Therapy Cardiovascular History: Denies: Hx Congestive Heart Failure, Hx Deep Vein Thrombosis, Hx Hypertension , Hx Myocardial Infarction, Hx Pacemaker/ICD Respiratory History: Reports: Hx Asthma, Hx Chronic Obstructive Pulmonary Disease (COPD) Denies: Hx Lung Cancer, Hx Pneumonia, Hx Pulmonary Embolism GI History: Denies: Hx Gall Bladder Disease, Hx Gastrointestinal Bleed, Hx Ulcer, Hx Urosepsis History: Denies: Hx Kidney Stones, Hx Renal Disease Neurological History: Denies: Hx Dementia, Hx Migraine, Hx Seizures, Hx Transient Ischemic Attacks (TIA) Psychiatric History: Reports: Hx Bipolar Disorder Denies: Hx Anxiety, Hx Depression, Hx Schizophrenia - Surgical History Surgery Procedure, Year, and Place: tubal ligation, uterine ablation 2011 Infectious Disease History: No Infectious Disease History: Denies: Hx Clostridium Difficile, Hx Hepatitis, Hx Human Immunodeficiency Virus (HIV), Hx of Known/Suspected MRSA, Hx Shingles, Hx Tuberculosis, Hx Known/ Suspected VRE, Hx Known/Suspected VRSA, History Other Infectious Disease, Traveled Outside the [place] in Last 30 Days - Family History Known Family History: Positive: Hypertension Negative: Cardiac Disease, Diabetes - Social History Alcohol Use: None Substance Use Type: Reports: None Smoking Status (MU): Current Every Day Smoker Type: Cigarettes Amount Used/How Often: 4 cigarettes daily Length of Time of Smoking/Using Tobacco: since age 12 Review of Systems Negative: Fever, Chills Eyes: Negative Positive: Other - URI symptoms currently being treated Gastrointestinal: Negative Positive: other - UTI currently being treated Positive: Other - back pain Skin: Negative Positive: Paresthesia - in left foot All Other Systems Reviewed And Are Negative: Yes Physical Exam - Summary Physical Exam Summary: VITAL SIGNS: Reviewed. GENERAL: Patient is a well-developed and nourished female. Patient is not in any acute respiratory distress. HEAD AND FACE: No signs of trauma. No ecchymosis, hematomas or skull depressions. No sinus tenderness. EYES: PERRLA, EOMI x 2, No injected conjunctiva, no nystagmus. EARS: Hearing grossly intact. Ear canals and tympanic membranes are within normal limits. MOUTH: Oropharynx within normal limits. NECK: Supple, trachea is midline, no adenopathy, no JVD, no carotid bruit, no c- spine tenderness, neck with full ROM. CHEST: Symmetric, no tenderness at palpation LUNGS: Clear to auscultation bilaterally. No wheezing or crackles. CVS: Regular rate and rhythm, S1 and S2 present, no murmurs or gallops appreciated. ABDOMEN: Soft, non-tender. No signs of distention. No rebound no guarding, and no masses palpated. Bowel sounds are normal. EXTREMITIES: FROM in all major joints, no edema, no cyanosis or clubbing. MSK: there is lumbar spinal muscle tenderness. Pt is ambulating. NEURO: Alert and oriented x 3. No acute neurological deficits. Speech is normal and follows commands. SKIN: Dry and warm Triage Information Reviewed: Yes Vital Signs On Initial Exam: Initial Vitals Temp Pulse Resp BP Pulse Ox 97.9 F 80 16 120/73 100 06/17/17 09:04 06/17/17 09:04 06/17/17 09:04 06/17/17 09:04 06/17/17 09:04 Vital Signs Reviewed: Yes - Ines Coma Scale Coma Scale Total: 15 Diagnostics - Vital Signs Vital Signs Temp Pulse Resp BP Pulse Ox 06/17/17 09:04 97.9 F 80 16 120/73 100 - Laboratory Lab Statement: Any lab studies that have been ordered have been reviewed, and results considered in the medical decision making process. Re-Evaluation - Re-Evaluation First Eval Re-Evaluation Time: 10:43 Comment: I discussed pt's discharge instructions with the pt. Back Pain Course/Dx - Course Assessment/Plan: This pt is a 52 y/o female presenting to [facility] c/o back pain x3 days. Pt reports she was doing heavy lifting of boxes prior to onset of her back pain. She notes having tingling in left foot. Pt states she has trouble sleeping secondary to her pain. Pt denies urinary or bowel incontinence. She notes she was seen in the ED yesterday and had X-rays done that showed degenerative disc disease but no fracture. She was prescribed tylenol with codeine but has had no relief. Pt has a UTI and is currently on Ceflex. Pt also has an upper respiratory infection and is on Flexaril. The pt continues to have pain, however she is ambulating with no abnormal gait. She was given toradol, decadron, and norflex. After these medications, her symptoms improved. Therefore, she will be discharged home with prescriptions of Ultram, robaxin, and motrin. She will be discharged home with follow up from her PCP. - Diagnoses Differential Diagnosis/HQI/PQRI: Positive: Herniated Disc, Strain, Sprain Provider Diagnoses: Back pain Discharge - Discharge Plan Condition: Stable Disposition: HOME Prescriptions: Ibuprofen TAB* [Motrin TAB* 600 MG] 600 mg PO Q6H PRN #20 tab PRN Reason: Pain Methocarbamol TAB* [Robaxin 500 MG TAB*] 750 mg PO TID PRN #12 tab PRN Reason: Pain traMADol TAB* [Ultram*] 50 mg PO Q6HR PRN #12 tab MDD 4 PRN Reason: Pain Patient Education Materials: Back Pain (ED) Referrals: Greta Lutz MD [Primary Care Provider] - Additional Instructions: Please follow up with your primary care provider. The documentation as recorded by the Gianni ayala Angela accurately reflects the service I personally performed and the decisions made by Thomas gaxiola Walter, MD.
== END | disposition home or self-care (01) ==
LOC: ED 08:48
DX: M54.9 Dorsalgia, unspecified (principal); N39.0 Urinary tract infection, site not specified; F17.210 Nicotine dependence, cigarettes, uncomplicated
CPT/HCPCS: 96372; 99281; J1100; J1885; J2360

== ENCOUNTER 2017-06-20 09:36 | Emergency (ER) | payer OTHER ==
--- NOTE | 2017-06-20 10:53 | UC ---
Back Pain HPI - HPI Summary HPI Summary: states she has been experiencing back pain since june 14, when she lifted a heavy weight at work. She has been taking percoset, tramadol, naproxen and methocarbamol to no avail. SHe states currently her pain is 9/10 c/o soreness and burning/numbing sensation in back, buttocks and down to both legs. - History of Current Complaint Chief Complaint: UCBackPain Stated Complaint: WC BACK Time Seen by Provider: 06/20/17 10:27 Hx Obtained From: Patient Hx Last Menstrual Period: ABLATION ?: No Onset/Duration: Sudden Onset, Lasting Days Timing: Constant Severity Initially: Severe Severity Currently: Severe Pain Intensity: 9 Back Pain: Is Diffuse Character: Dull, Burning Aggravating Factor(s): Lifting - Allergies/Home Medications Allergies/Adverse Reactions: Allergies Allergy/AdvReac Type Severity Reaction Status Date / Time Adhesive Tape Allergy Intermediate Rash Verified 06/20/17 10:30 Omeprazole [From Prilosec] Allergy Intermediate edema/hives Verified 06/20/17 10 :30 Pantoprazole [From Protonix] Allergy Intermediate Edema/hives Verified 06/20/17 10:30 Loratadine [From Claritin] Allergy Rash Verified 06/20/17 10:30 PMH/Surg Hx/FS Hx/Imm Hx Endocrine History: Diabetes, Thyroid Disease Respiratory History: COPD GI/ History: Gastroesophageal Reflux Other History Of: Negative For: HIV, Hepatitis B, Hepatitis C, Anticoagulant Therapy - Surgical History Surgical History: Yes Surgery Procedure, Year, and Place: tubal ligation, uterine ablation 2011 - Family History Known Family History: Positive: Hypertension Negative: Cardiac Disease, Diabetes - Social History Occupation: Employed Full-time Alcohol Use: None Substance Use Type: None Smoking Status (MU): Current Every Day Smoker Type: Cigarettes Amount Used/How Often: 1ppd Length of Time of Smoking/Using Tobacco: since age 12 When Did the Patient Quit Smoking/Using Tobacco: 03/2014 Household Exposure Type: Cigarettes Review of Systems Constitutional: Fatigue Skin: Negative Eyes: Negative ENT: Sinus Congestion Respiratory: Cough Cardiovascular: Negative Gastrointestinal: Negative Genitourinary: Negative Motor: Negative Musculoskeletal: Myalgia Neurological: Negative Psychological: Negative All Other Systems Reviewed And Are Negative: Yes Physical Exam Triage Information Reviewed: Yes Appearance: Well-Appearing, Other: - flat affect Vital Signs: Initial Vital Signs Temp 98.4 F 06/20/17 10:17 Pulse 88 06/20/17 10:17 Resp 18 06/20/17 10:17 BP 133/64 06/20/17 10:17 Pulse Ox 100 06/20/17 10:17 Vital Signs Reviewed: Yes Eyes: Positive: Conjunctiva Clear ENT Exam: Normal ENT: Positive: TMs normal Neck exam: Normal Respiratory Exam: Normal Cardiovascular Exam: Normal Musculoskeletal Exam: Normal - SLR negative, DTR symmetric and present, gait wnl , able to tiptoe and walk on heels Musculoskeletal: Positive: Strength Intact Neurological Exam: Normal Back Pain Course/Dx - Differential Dx/Diagnosis Provider Diagnoses: Lumbago, chronic Discharge - Discharge Plan Condition: Stable Disposition: HOME Prescriptions: Gabapentin CAP(*) [Neurontin 300 CAP(*)] 300 mg PO BEDTIME #30 cap Patient Education Materials: Chronic Back Pain (ED), Lower Back Exercises (ED) Forms: *Work Release Referrals: Greta Lutz MD [Primary Care Provider] -
[2017-06-20 11:47] VITALS: BP 134/77
== END 2017-06-20 11:33 | disposition home or self-care (01) ==
LOC: UCEAST 09:36
DX: G89.29 Other chronic pain (principal); M54.5 Low back pain; E11.9 Type 2 diabetes mellitus without complications; J44.9 Chronic obstructive pulmonary disease, unspecified; K21.9 Gastro-esophageal reflux disease without esophagitis; Z87.891 Personal history of nicotine dependence
CPT/HCPCS: 99212; G0463

== ENCOUNTER 2017-06-20 09:38 | Emergency (ER) | payer OTHER ==
--- NOTE | 2017-06-20 11:28 | UC ---
Respiratory Complaint HPI - HPI Summary HPI Summary: c/o cough and facial congestion and pain for several days. Hx of COPD continues to smoke 1PPD. States she is on last day of keflex to treat a UTI. SHe was also on prednisone 40mg for 5 days a week ago for COPD Exacerbation along with her inhalers. - History of Current Complaint Chief Complaint: UCGeneralIllness Stated Complaint: URI Time Seen by Provider: 06/20/17 10:27 Hx Last Menstrual Period: ABLATION - Allergies/Home Medications Allergies/Adverse Reactions: Allergies Allergy/AdvReac Type Severity Reaction Status Date / Time Adhesive Tape Allergy Intermediate Rash Verified 06/20/17 10:30 Omeprazole [From Prilosec] Allergy Intermediate edema/hives Verified 06/20/17 10 :30 Pantoprazole [From Protonix] Allergy Intermediate Edema/hives Verified 06/20/17 10:30 Loratadine [From Claritin] Allergy Rash Verified 06/20/17 10:30 PMH/Surg Hx/FS Hx/Imm Hx Endocrine History: Diabetes, Thyroid Disease Respiratory History: COPD GI/ History: Gastroesophageal Reflux Other History Of: Negative For: HIV, Hepatitis B, Hepatitis C, Anticoagulant Therapy - Surgical History Surgical History: Yes Surgery Procedure, Year, and Place: tubal ligation, uterine ablation 2011 - Family History Known Family History: Positive: Hypertension Negative: Cardiac Disease, Diabetes - Social History Alcohol Use: None Substance Use Type: None Smoking Status (MU): Current Every Day Smoker Type: Cigarettes Amount Used/How Often: 4 cigarettes daily Length of Time of Smoking/Using Tobacco: since age 12 When Did the Patient Quit Smoking/Using Tobacco: 03/2014 Household Exposure Type: Cigarettes Review of Systems ENT: Sinus Congestion Respiratory: Cough All Other Systems Reviewed And Are Negative: Yes Physical Exam Triage Information Reviewed: Yes Appearance: Well-Appearing Vital Signs: Initial Vital Signs Temp 98.4 F 06/20/17 10:28 Pulse 68 06/20/17 10:28 Resp 18 06/20/17 10:28 BP 133/64 06/20/17 10:28 Pulse Ox 100 06/20/17 10:28 Vital Signs Reviewed: Yes Eye Exam: Normal ENT Exam: Other - PNST b/l on maxillary and etmoidal areas ENT: Positive: Nasal drainage, Other: Neck exam: Normal Neck: Positive: Supple Respiratory Exam: Normal Cardiovascular Exam: Normal UC Diagnostic Evaluation - Laboratory O2 Sat by Pulse Oximetry: 100 Respiratory Course/Dx - Differential Dx/Diagnosis Provider Diagnoses: Maxillary sinusitis. COPD. Tobacco abuse, active Discharge - Discharge Plan Condition: Stable Disposition: HOME Patient Education Materials: Sinusitis (ED)
[2017-06-20 11:52] VITALS: BP 134/77
== END 2017-06-20 11:38 | disposition home or self-care (01) ==
LOC: UCEAST 09:38
DX: J32.0 Chronic maxillary sinusitis (principal); E11.9 Type 2 diabetes mellitus without complications; J44.9 Chronic obstructive pulmonary disease, unspecified; K21.9 Gastro-esophageal reflux disease without esophagitis; Z87.891 Personal history of nicotine dependence
CPT/HCPCS: 99212; G0463

== ENCOUNTER 2017-06-23 11:53 | Emergency (ER) | payer OTHER ==
[2017-06-23] MEDS ORDERED: Albuterol/Ipratropium NEB.SOL* Albuterol 2.5 MG/Ipratropium 0.5 MG 3 ML INH ONE (12:47)
--- NOTE | 2017-06-23 13:16 | RAD ---
HISTORY: Back pain, cough COMPARISONS: None VIEWS: 1: frontal portable view of the chest at 12:50 PM FINDINGS: LINES AND TUBES: None. CARDIOMEDIASTINAL SILHOUETTE: The cardiomediastinal silhouette is normal for portable technique. PLEURA: The costophrenic angles are sharp. No pleural abnormalities are noted. LUNG PARENCHYMA: The lungs are clear. ABDOMEN: The upper abdomen is clear. There is no subphrenic gas. BONES AND SOFT TISSUES: No bone or soft tissue abnormalities are noted. IMPRESSION: NO ACTIVE CARDIOPULMONARY DISEASE.
[2017-06-23 13:28] LABS: Hematocrit 44 % (35-47); Hemoglobin 14.5 g/dl (12.0-16.0); Mean Corpuscular HGB Conc 33 g/dl (31-36); Mean Corpuscular Hemoglobin 29 pg (27-31); Mean Corpuscular Volume 88 fL (80-97); Mean Platelet Volume 9 um3 (7.4-10.4); Red Blood Count 4.97 10^6/ul (4.0-5.4); Red Cell Distribution Width 14 % (10.5-15); White Blood Count 11.5 10^3/ul (3.5-10.8)
[2017-06-23 13:41] LABS: Albumin 4.2 g/dL (3.2-5.2); BUN/Creatinine Ratio 13.2 (8-20); C Reactive Protein 2.38 mg/L (< 5.00); Calcium 10.1 mg/dL (8.6-10.3); EGFR African American 102.8 (>60); EGFR Non-African American 79.9 (>60); Globulin 3.3 g/dL (2-4); Magnesium 2.1 mg/dL (1.9-2.7); Potassium 3.9 mmol/L (3.5-5.0); Total Bilirubin 0.3 mg/dL (0.2-1.0); Total Protein 7.5 g/dL (6.4-8.9)
[2017-06-23] MEDS: NS 0.9% 1000 ML* 2,000 ML IV ONE (13:43)
[2017-06-23 13:46] LABS: Urine Bilirubin Negative (Negative); Urine Glucose Negative (Negative); Urine Nitrite Negative (Negative)
[2017-06-23 14:12] LABS: TSH (Thyroid Stimulating Horm) 0.77 mcIU/mL (0.34-5.60)
[2017-06-23] MEDS ORDERED: GuaiFENesin DM* 5 ML UDC PO ONE (14:13)
[2017-06-23] MEDS ORDERED: oxyCODONE/Acetamin 5/325 MG* TAB PO ONE (14:14)
[2017-06-23] MEDS ORDERED: Iodixanol* (CONTRAST) 320 MG/ML 100 ML SDV IV ONE (14:57)
--- NOTE | 2017-06-23 15:59 | RAD ---
INDICATION: Atraumatic back pain. COMPARISON: Thoracic spine June 16, 2017 TECHNIQUE: Noncontrast axial source images was performed from the thoracic inlet to the level the hemidiaphragms. Coronal and and sagittal reformatted images were generated. FINDINGS: Vertebrae: There is no fracture or acute focal bony lesion. There are mid thoracic osteoarthritic changes consisting of marginal osteophyte formation and minor endplate sclerosis Alignment: There is moderate kyphosis. Central Canal: There are no significant CT abnormalities of the central canal or foramina. MR imaging is a more sensitive method to evaluate the canal and foramina. Intervertebral disc spaces: The disc spaces are maintained. Soft tissues: There are no paravertebral soft tissue abnormalities. IMPRESSION: MIDTHORACIC OSTEOARTHRITIS WITH MODERATE KYPHOSIS
--- NOTE | 2017-06-23 16:02 | RAD ---
INDICATION: Atraumatic back pain COMPARISON: Lumbar spine June 16, 2017 TECHNIQUE: Noncontrast axial source images was performed from the thoracolumbar junction to the sacrum. Coronal and and sagittal reformatted images were generated. FINDINGS: Vertebrae: There is no fracture or acute focal bony lesion. There is prominent facet overgrowth at the lower 3 lumbar levels with circumferential bulging of the L3-L4 and L4-L5 discs associated with minor central canal stenosis. Alignment: The lumbar vertebrae are normally aligned. Central Canal: There are no significant CT abnormalities of the central canal or foramina. MR imaging is a more sensitive method to evaluate the canal and foramina. Intervertebral disc spaces: There is advanced narrowing about L5-S1 with reactive endplate changes. There is vacuum disc phenomena. The heights of the remaining disc spaces are maintained. Soft tissues: The paravertebral soft tissues are normal. Other: None IMPRESSION: NO ACUTE BONY FINDINGS. THERE ARE DEGENERATIVE CHANGES CONSISTING OF MILD CIRCUMFERENTIAL BULGING AT L3-L4 AND L4-L5 ASSOCIATED WITH LIGAMENTOUS AND FACET OVERGROWTH AND PRODUCING MINOR CENTRAL CANAL STENOSIS. ADVANCED DEGENERATIVE DISC DISEASE L5-S1.
--- NOTE | 2017-06-23 16:08 | RAD ---
INDICATION: Back pain. Abdominal pain. Elevated lipase COMPARISON: CT November 12, 2015 TECHNIQUE: Axial source images were obtained from the hemidiaphragms to the symphysis pubis following administration of oral and intravenous contrast. 85 mL Visipaque 320 was utilized. Coronal and sagittal reconstructed images were acquired. Lung bases: The lung bases are clear. Liver: The liver is enlarged with findings of hepatic steatosis. There are no masses. There is no ductal dilatation. Gallbladder: There are no calcified gallstones. There is no evidence of wall thickening or pericholecystic fluid. Spleen: The spleen is normal in size. There are no masses. Pancreas: There is no focal pancreatic mass or ductal dilatation. Adrenal glands: There is no evidence of adrenal mass. Kidneys: The kidneys are normal in size and position. There are prompt nephrograms and there is prompt excretion bilaterally. There are no renal parenchymal masses. There is no evidence of nephrolithiasis. Adenopathy: There is no evidence of adenopathy by size criteria. Fluid collections: There are no free or localized fluid collections. Vessels:There are no significant atherosclerotic changes involving the aorta. There is no focal aneurysm. The iliac vessels are normal in caliber. The IVC appears normal. GI tract: There are no acute CT bowel findings. There is no obstruction. The stomach and small bowel appear normal. The lower GI tract is normal. The cecum, ileocecal valve, and terminal ileum appear normal. The appendix is visualized and appear normal. Pelvic organs: The uterus and adnexa appear normal Bladder: There are no bladder masses. Abdominal and pelvic soft tissues: The extraperitoneal abdominal and pelvic soft tissues appear normal.. Osseous structures: There are no acute osseous findings. Other: None IMPRESSION: HEPATIC STEATOSIS . NO ACUTE CT FINDINGS. NO MASS OR INFLAMMATORY CHANGE
--- NOTE | 2017-06-23 17:58 | ED ---
Debora Hayes Alfonso, scribed for Timothy Bennett MD on 06/23/17 at 1228 . Back Pain - HPI Summary HPI Summary: This patient is a 52 year old F BIBA to [facility] with a chief complaint of back pain since an injury picking up banana boxes 9 days ago, worse since earlier today. She ambulated to the ambulance. The patient rates the sharp pain 10/10 in severity. Symptoms aggravated by coughing and movement. Symptoms alleviated by nothing. Patient reports hot flashes, coughing, N/V/D (a few days), hunger, weight loss, and bilateral feet tingling. Patient denies fever, chills, neck pain, and ear pain. She recently completed a course of Keflex and is currently taking azithromycin and inhalers for her cough and a UTI. Medications reviewed. Allergies reviewed. - History of Current Complaint Chief Complaint: EDBackInjuryPain Stated Complaint: BACK PAIN, Time Seen by Provider: 06/23/17 12:22 Hx Obtained From: Patient Onset/Duration: Sudden Onset, Lasting Days - 9, Worse Since - morning Onset/Duration: Still Present Timing: Constant Severity Currently: Severe Pain Intensity: 10 Pain Scale Used: 0-10 Numeric Character: Sharp Aggravating Symptom(s): Movement, Cough Alleviating Symptom(s): Nothing Associated Signs And Symptoms: Positive: Other - Patient reports hot flashes, coughing, N/V/D (a few days), hunger, weight loss, and bilateral feet tingling. Patient denies fever, chills, neck pain, and ear pain. - Allergies/Home Medications Allergies/Adverse Reactions: Allergies Allergy/AdvReac Type Severity Reaction Status Date / Time Adhesive Tape Allergy Intermediate Rash Verified 06/20/17 10:30 Omeprazole [From Prilosec] Allergy Intermediate edema/hives Verified 06/20/17 10 :30 Pantoprazole [From Protonix] Allergy Intermediate Edema/hives Verified 06/20/17 10:30 Loratadine [From Claritin] Allergy Rash Verified 06/20/17 10:30 PMH/Surg Hx/FS Hx/Imm Hx Endocrine/Hematology History: Reports: Hx Diabetes Cardiovascular History: Reports: Hx Hypercholesterolemia Respiratory History: Reports: Hx Chronic Obstructive Pulmonary Disease (COPD) GI History: Reports: Other GI Disorders - hemorrhoids Sensory History: Denies: Hx Deafness Opthamlomology History: Denies: Hx Legally Blind Infectious Disease History: No Infectious Disease History: Denies: Traveled Outside the [place] in Last 30 Days - Family History Known Family History: Positive: Cardiac Disease, Diabetes - Social History Alcohol Use: None Substance Use Type: Reports: None Smoking Status (MU): Light Every Day Tobacco Smoker Review of Systems Positive: Other - hot flashes. Negative: Fever, Chills Negative: Ear Ache Positive: Cough Positive: Vomiting, Diarrhea, Nausea, Other - hunger, weight loss Positive: Other - Back pain; negative neck pain Neurological: Other - bilateral feet tingling All Other Systems Reviewed And Are Negative: Yes Physical Exam - Summary Physical Exam Summary: General: Mildly ill-appearing, mild pain distress Skin: warm, color reflects adequate perfusion, dry Head: normal Eyes: EOMI, OMID ENT: normal, No rhinorrhea, Posterior pharynx benign. Neck: supple, nontender Respiratory: Occasional wheezing, breath sounds present Cardiovascular: RRR Abdomen: soft, nontender abdomen, bilateral CVA tenderness Bowel: present Musculoskeletal: strength/ROM intact, Tenderness on palpation bilaterally C6 to L5. Strength 5/5 in lower extremities Neurological: normal, sensory/motor intact, no sensation deficit, A&O x3 Psychological: affect/mood appropriate Triage Information Reviewed: Yes Vital Signs On Initial Exam: Initial Vitals Temp Pulse Resp BP Pulse Ox 97.1 F 86 20 159/72 95 06/23/17 11:57 06/23/17 11:57 06/23/17 11:57 06/23/17 11:57 06/23/17 11:57 Vital Signs Reviewed: Yes - [place] Coma Scale Coma Scale Total: 15 Diagnostics - Vital Signs Vital Signs Temp Pulse Resp BP Pulse Ox 06/23/17 11:57 97.1 F 86 20 159/72 95 - Laboratory Lab Results: Lab Results 06/23/17 06/23/17 06/23/17 Range/Units 13:09 13:09 13:09 WBC (3.5-10.8) 10^3/ul RBC (4.0-5.4) 10^6/ul Hgb (12.0-16.0) g/dl Hct (35-47) % MCV (80-97) fL MCH (27-31) pg MCHC (31-36) g/dl RDW (10.5-15) % Plt Count (150-450) 10^3/ul MPV (7.4-10.4) um3 Neut % (Auto) (38-83) % Lymph % (Auto) (25-47) % [place] % (Auto) (1-9) % Eos % (Auto) (0-6) % Baso % (Auto) (0-2) % Absolute Neuts (auto) (1.5-7.7) 10^3/ul Absolute Lymphs (auto) (1.0-4.8) 10^3/ul Absolute Monos (auto) (0-0.8) 10^3/ul Absolute Eos (auto) (0-0.6) 10^3/ul Absolute Basos (auto) (0-0.2) 10^3/ul Absolute Nucleated RBC 10^3/ul Nucleated RBC % INR (Anticoag Therapy) 0.86 L (0.89-1.11) APTT 34.8 (26.0-36.3) seconds D-Dimer, Quantitative < 200 (Less Than 230) ng/mL Sodium 139 (133-145) mmol/L Potassium 3.9 (3.5-5.0) mmol/L Chloride 104 (101-111) mmol/L Carbon Dioxide 28 (22-32) mmol/L Anion Gap 7 (2-11) mmol/L BUN 10 (6-24) mg/dL Creatinine 0.76 (0.51-0.95) mg/dL Est GFR ( Amer) 102.8 (>60) Est GFR (Non-Af Amer) 79.9 (>60) BUN/Creatinine Ratio 13.2 (8-20) Glucose 98 (70-100) mg/dL Calcium 10.1 (8.6-10.3) mg/dL Magnesium 2.1 (1.9-2.7) mg/dL Total Bilirubin 0.30 (0.2-1.0) mg/dL AST 23 (13-39) U/L ALT 23 (7-52) U/L Alkaline Phosphatase 128 H (34-104) U/L Total Creatine Kinase 337 H (10-223) U/L CK-MB (CK-2) 10.2 H (0.6-6.3) ng/mL Troponin I 0.00 (<0.04) ng/mL C-Reactive Protein 2.38 (< 5.00) mg/L B-Natriuretic Peptide 16 ( - 100) pg/mL Total Protein 7.5 (6.4-8.9) g/dL Albumin 4.2 (3.2-5.2) g/dL Globulin 3.3 (2-4) g/dL Albumin/Globulin Ratio 1.3 (1-3) Lipase 101 H (11.0-82.0) U/L TSH 0.77 (0.34-5.60) mcIU/mL Urine Color Urine Appearance Urine pH (5-9) Ur Specific [place] (1.010-1.030) Urine Protein (Negative) Urine Ketones (Negative) Urine Blood (Negative) Urine Nitrate (Negative) Urine Bilirubin (Negative) Urine Urobilinogen (Negative) Ur Leukocyte Esterase (Negative) Urine Glucose (Negative) 06/23/17 06/23/17 Range/Units 13:09 13:20 WBC 11.5 H (3.5-10.8) 10^3/ul RBC 4.97 (4.0-5.4) 10^6/ul Hgb 14.5 (12.0-16.0) g/dl Hct 44 (35-47) % MCV 88 (80-97) fL MCH 29 (27-31) pg MCHC 33 (31-36) g/dl RDW 14 (10.5-15) % Plt Count 424 (150-450) 10^3/ul MPV 9 (7.4-10.4) um3 Neut % (Auto) 68.0 (38-83) % Lymph % (Auto) 25.0 (25-47) % [place] % (Auto) 3.3 (1-9) % Eos % (Auto) 2.9 (0-6) % Baso % (Auto) 0.8 (0-2) % Absolute Neuts (auto) 7.8 H (1.5-7.7) 10^3/ul Absolute Lymphs (auto) 2.9 (1.0-4.8) 10^3/ul Absolute Monos (auto) 0.4 (0-0.8) 10^3/ul Absolute Eos (auto) 0.3 (0-0.6) 10^3/ul Absolute Basos (auto) 0.1 (0-0.2) 10^3/ul Absolute Nucleated RBC 0 10^3/ul Nucleated RBC % 0 INR (Anticoag Therapy) (0.89-1.11) APTT (26.0-36.3) seconds D-Dimer, Quantitative (Less Than 230) ng/mL Sodium (133-145) mmol/L Potassium (3.5-5.0) mmol/L Chloride (101-111) mmol/L Carbon Dioxide (22-32) mmol/L Anion Gap (2-11) mmol/L BUN (6-24) mg/dL Creatinine (0.51-0.95) mg/dL Est GFR ( Amer) (>60) Est GFR (Non-Af Amer) (>60) BUN/Creatinine Ratio (8-20) Glucose (70-100) mg/dL Calcium (8.6-10.3) mg/dL Magnesium (1.9-2.7) mg/dL Total Bilirubin (0.2-1.0) mg/dL AST (13-39) U/L ALT (7-52) U/L Alkaline Phosphatase (34-104) U/L Total Creatine Kinase (10-223) U/L CK-MB (CK-2) (0.6-6.3) ng/mL Troponin I (<0.04) ng/mL C-Reactive Protein (< 5.00) mg/L B-Natriuretic Peptide ( - 100) pg/mL Total Protein (6.4-8.9) g/dL Albumin (3.2-5.2) g/dL Globulin (2-4) g/dL Albumin/Globulin Ratio (1-3) Lipase (11.0-82.0) U/L TSH (0.34-5.60) mcIU/mL Urine Color Colorless Urine Appearance Clear Urine pH 7.0 (5-9) Ur Specific [place] 1.002 L (1.010-1.030) Urine Protein Negative (Negative) Urine Ketones Negative (Negative) Urine Blood Negative (Negative) Urine Nitrate Negative (Negative) Urine Bilirubin Negative (Negative) Urine Urobilinogen Negative (Negative) Ur Leukocyte Esterase Negative (Negative) Urine Glucose Negative (Negative) Result Diagrams: 06/23/17 13:09 06/23/17 13:09 Lab Statement: Any lab studies that have been ordered have been reviewed, and results considered in the medical decision making process. - Radiology CXR Radiology Interpretation Completed By: Radiologist - NO ACTIVE CARDIOPULMONARY DISEASE. ED physician has reviewed this radiology report and agrees. - CT A/P CT Interpretation Completed By: Radiologist - HEPATIC STEATOSIS . NO ACUTE CT FINDINGS. NO MASS OR INFLAMMATORY CHANGE. ED physician has reviewed this radiology report and agrees. L-Spine CT Interpretation Completed By: Radiologist - NO ACUTE BONY FINDINGS. THERE ARE DEGENERATIVE CHANGES CONSISTING OF MILD CIRCUMFERENTIAL BULGING AT L3-L4 AND L4-L5 ASSOCIATED WITH LIGAMENTOUS AND FACET OVERGROWTH AND PRODUCING MINOR CENTRAL CANAL STENOSIS. ADVANCED DEGENERATIVE DISC DISEASE L5-S1. ED physician has reviewed this radiology report and agrees. T-Spine CT Interpretation Completed By: Radiologist - MIDTHORACIC OSTEOARTHRITIS WITH MODERATE KYPHOSIS. ED physician has reviewed this radiology report and agrees. - EKG 1254 Cardiac Rate: NL - BPM 86 EKG Rhythm: Sinus Rhythm ST Segment: Normal Ectopy: None Back Pain Course/Dx - Course Course Of Treatment: PATIENT REPORTS SHE LOOSES URINE WITH HER COUGH. NO FOCAL WEAKNESS/NUMBNESS ON EXAM. URINE LOSS IS CHRONIC, ONLY WITH STRAINING/COUGH. NO OTHER DIFFICULTY WITH CONTROL OF BOWEL OR BLADDER. WILL STOP ABX TODAY AND START PROBIOTICS FOR DIARRHEA. DISCUSSED RESULTS, TO INCLUDE ELEVATED LFTS/ LIPASE, WITH PATIENT. F/U WITH PMD TOMORROW, 06/24/17. RETURN IF WORSE. - Diagnoses Provider Diagnoses: Low back pain, Thoracic back pain, Bronchitis, Cough, Urinary incontinence, LFTs abnormal, Elevated lipase, Diarrhea Discharge - Discharge Plan Condition: Stable Disposition: HOME Prescriptions: GuaiFENesin DM* [Robitussin DM*] 10 ml PO Q4H PRN #180 ml PRN Reason: Cough Incontinence Supplies Disposab [Poise Pads Maximum Absorb] 1 pad .SEE ORDER SEE INSTRUCTIONS #30 pad oxyCODONE TAB* [Roxycodone TAB 5 mg*] 5 mg PO Q6H PRN #20 tab MDD 4 PRN Reason: Pain Patient Education Materials: Acute Low Back Pain (ED), Dextromethorphan (By mouth), Acute Bronchitis (ED), Urinary Incontinence (ED) Referrals: Ender Martinez MD [Primary Care Provider] - Greta Lutz MD [Medical Doctor] - Additional Instructions: FOLLOW UP WITH YOUR DOCTOR TOMORROW, 06/24/17, SCHEDULED. STOP THE ANTIBIOTICS; THIS MAY BE CONTRIBUTING TO YOUR DIARRHEA. GET YOUR LIVER FUNCTIONS/LIPASE RECHECKED WITH YOUR DOCTOR. RETURN TO THE EMERGENCY DEPARTMENT FOR ANY WORSENING OF YOUR CONDITION; WEAKNESS , NUMBNESS, DIFFICULTY CONTROLLING BOWEL OR BLADDER, SHORTNESS OF BREATH, YOU FEEL ILL OR QUESTIONS OR CONCERNS. The documentation as recorded by the Debora aayla Alfonso accurately reflects the service I personally performed and the decisions made by me, Timothy Bennett MD.
[2017-06-23 18:14] VITALS: BP 110/92
== END 2017-06-23 18:13 | disposition home or self-care (01) ==
LOC: ED 11:53 → MERGE 11:53 → ED 18:13
DX: M54.5 Low back pain (principal); R05 Cough; R32 Unspecified urinary incontinence; R94.5 Abnormal results of liver function studies; J40 Bronchitis, not specified as acute or chronic; R74.8 Abnormal levels of other serum enzymes; R11.2 Nausea with vomiting, unspecified; R19.7 Diarrhea, unspecified; F17.210 Nicotine dependence, cigarettes, uncomplicated
CPT/HCPCS: 36415; 71010; 72128; 72131; 74177; 80053; 81003; 82550; 82553; 83690; 83735; 83880; 84443; 84484; 85025; 85379; 85610; 85730; 86140; 93005; 94640; 99283; A9270-GY; Q9967

== ENCOUNTER 2017-06-24 12:55 | Emergency (ER) | payer OTHER ==
[2017-06-24] MEDS ORDERED: Morphine INJ* 2 MG/ML 1 ML CARPUJECT IV ONE (13:49)
[2017-06-24] MEDS ORDERED: NS 0.9% 1000 ML* 2,000 ML IV ONE (13:49)
[2017-06-24] MEDS ORDERED: Ondansetron INJ* 2 MG/ML VIAL IV ONE (13:49)
--- NOTE | 2017-06-24 13:55 | ED ---
Back Pain - HPI Summary HPI Summary: 52 female presents to ED with complaints of needing to be hydrated, a breathing treatment and pain relief because she is still experiencing back pain along with dry heaving. Patient has been seen in ED multiple times over the past week , including last visit being last night, 06/23/17. States she was seen by PCP this morning who told her she needed to come to ED to be hydrated and pain control. She is also experiencing SOB due to her URI symptoms. States she has been taking prescribed medication as directed, 10mg of oxycodone, without relief. Had imaging and lab work completed last night without significant findings. States still is having diarrhea, that she also complained of last night. Denies bladder/bowel incontinence except when she coughs. Able to bear weight and ambulate without difficulty. No lower extremity weakness. Denies saddle anesthesia. No other complaints. PMHx significant for DM, Asthma and COPD. - History of Current Complaint Chief Complaint: EDBackInjuryPain Stated Complaint: BACK PAIN/DIFF BREATHING Time Seen by Provider: 06/24/17 13:39 Hx Obtained From: Patient Hx Last Menstrual Period: ABLATION Onset/Duration: Lasting Weeks, Still Present Onset/Duration: Started Weeks Ago, Traumatic, Still Present Timing: Constant Back Pain Location: Is Discrete @ - "entire back" Severity Initially: Moderate Severity Currently: Moderate Pain Intensity: 10 Pain Scale Used: 0-10 Numeric Character: Aching - radiating down right leg Aggravating Symptom(s): Movement, Lifting Alleviating Symptom(s): Rest, Nothing Associated Signs And Symptoms: Positive: Tingling - right leg/foot, intemrittent , Pain with Weight Bearing. Negative: Swelling, Redness, Bruising, Weakness, Numbness, Bladder Incontinence, Bowel Incontinence Related History: Previous Back Injury - 10 days ago - Risk Factors AAA Risk Factors: Atherosclerosis TAD Risk Factors: Negative Cauda Equina Risk Factors: Negative Epidural Abscess Risk Factors: Negative - Allergies/Home Medications Allergies/Adverse Reactions: Allergies Allergy/AdvReac Type Severity Reaction Status Date / Time Adhesive Tape Allergy Intermediate Rash Verified 06/20/17 10:30 Omeprazole [From Prilosec] Allergy Intermediate edema/hives Verified 06/20/17 10 :30 Pantoprazole [From Protonix] Allergy Intermediate Edema/hives Verified 06/20/17 10:30 Loratadine [From Claritin] Allergy Rash Verified 06/20/17 10:30 PMH/Surg Hx/FS Hx/Imm Hx Endocrine/Hematology History: Reports: Hx Diabetes, Hx Thyroid Disease Denies: Hx Anticoagulant Therapy Cardiovascular History: Reports: Hx Hypercholesterolemia Denies: Hx Congestive Heart Failure, Hx Deep Vein Thrombosis, Hx Hypertension , Hx Myocardial Infarction, Hx Pacemaker/ICD Respiratory History: Reports: Hx Asthma, Hx Chronic Obstructive Pulmonary Disease (COPD) Denies: Hx Lung Cancer, Hx Pneumonia, Hx Pulmonary Embolism GI History: Reports: Other GI Disorders - hemorrhoids Denies: Hx Gall Bladder Disease, Hx Gastrointestinal Bleed, Hx Ulcer, Hx Urosepsis History: Reports: Hx Renal Disease - STAGE 3 RENAL DISEASE Denies: Hx Kidney Stones Sensory History: Denies: Hx Legally Blind, Hx Deafness Opthamlomology History: Denies: Hx Legally Blind Neurological History: Denies: Hx Dementia, Hx Migraine, Hx Seizures, Hx Transient Ischemic Attacks (TIA) Psychiatric History: Reports: Hx Bipolar Disorder Denies: Hx Anxiety, Hx Depression, Hx Schizophrenia - Surgical History Surgery Procedure, Year, and Place: tubal ligation, uterine ablation 2011 - Immunization History Immunizations Up to Date: Yes Infectious Disease History: No Infectious Disease History: Denies: Hx Clostridium Difficile, Hx Hepatitis, Hx Human Immunodeficiency Virus (HIV), Hx of Known/Suspected MRSA, Hx Shingles, Hx Tuberculosis, Hx Known/ Suspected VRE, Hx Known/Suspected VRSA, History Other Infectious Disease, Traveled Outside the [place] in Last 30 Days - Family History Known Family History: Positive: Cardiac Disease, Hypertension, Diabetes - Social History Alcohol Use: None Substance Use Type: Reports: None Smoking Status (MU): Light Every Day Tobacco Smoker Type: Cigarettes Amount Used/How Often: 4 cigarettes daily Length of Time of Smoking/Using Tobacco: since age 12 Review of Systems Constitutional: Negative Cardiovascular: Negative Positive: Shortness Of Breath, Cough Positive: Vomiting, Diarrhea, Nausea, Other - hunger Genitourinary: Negative Positive: Arthralgia, Myalgia Skin: Negative Positive: Paresthesia - right foot All Other Systems Reviewed And Are Negative: Yes Physical Exam Triage Information Reviewed: Yes Vital Signs On Initial Exam: Initial Vitals Temp Pulse Resp BP Pulse Ox 97.6 F 78 20 152/65 98 06/24/17 12:58 06/24/17 12:58 06/24/17 12:58 06/24/17 12:58 06/24/17 12:58 Vital Signs Reviewed: Yes Appearance: Positive: Well-Appearing, No Pain Distress, Well-Nourished Skin: Positive: Warm, Skin Color Reflects Adequate Perfusion, Dry. Negative: Cold, Numb, Cyanosis @, Pale, Erythema @ Head/Face: Positive: Normal Head/Face Inspection Eyes: Positive: Conjunctiva Clear ENT: Positive: Hearing grossly normal, Pharynx normal. Negative: Nasal congestion, Nasal drainage, Tonsillar swelling, Tonsillar exudate Neck: Positive: Supple, Nontender Respiratory/Lung Sounds: Positive: Clear to Auscultation, Breath Sounds Present. Negative: Decreased Breath Sounds, Rales, Rhonchi, Wheezes Cardiovascular: Positive: Normal, RRR, Pulses are Symmetrical in both Upper and Lower Extremities. Negative: Murmur, Rub Abdomen Description: Positive: Nontender, No Organomegaly, Soft. Negative: CVA Tenderness (R), CVA Tenderness (L), Distended, Guarding, McBurney's Point Tenderness, Peritoneal Signs Bowel Sounds: Positive: Present Musculoskeletal: Positive: Normal, Strength/ROM Intact - 5/5 upper and lower extremities, Pain @ - on palpation of entire spine and paraspinal muscles C6-L5 Neurological: Positive: Normal, Sensory/Motor Intact, Alert, Oriented to Person Place, Time, CN Intact II-III, Reflexes Intact, NV Bundle Intact Distally, Normal Gait - ambulates normally and without difficulty - [place] Coma Scale Coma Scale Total: 15 Diagnostics - Vital Signs Vital Signs Temp Pulse Resp BP Pulse Ox 06/24/17 12:58 97.6 F 78 20 152/65 98 - Laboratory Lab Statement: Any lab studies that have been ordered have been reviewed, and results considered in the medical decision making process. Re-Evaluation - Re-Evaluation First Eval Re-Evaluation Time: 15:30 Change: Improved - had relief from nausea, SOB and back pain after medications and fluids. however feels somewhat dizzy from morphine, on second bag of fluids. will re-check. calling and making phonecalls on credit cards upon reeval Second Eval Re-Evaluation Time: 16:40 Change: Improved - sleeping upon entry. feels better after food and medicine, ready to be d/c to her home. updated on plan. all questions answered. Back Pain Course/Dx - Course Course Of Treatment: patient was seen last night in ED and had full work up completed, including chest xray, labs, urinalysis and CT of spine with out any significant findings. given pain management at d/c. discontinued antibiotics, to take probiotics. given fluids and duoneb while in ED due to patient request and was told by PCP. managed pain, and patient had relief. zofran for nausea. patient ate a full meal before d/c. patient ambulated without difficulty and did not appear to be in any significant pain. Patient is already being treated for URI/Cough symptoms. Has been seen multiple times for similar complaints and treated. No other concerns requiring further work up/imaging at this time. Will be d/c home with zofran and educated on medication to obtain to help with diarrhea if persists. Aware of worsening signs and symptoms to watch out for. Follow up PCP. is no longer taking azthromycin. - Diagnoses Differential Diagnosis/HQI/PQRI: Positive: Strain, Sprain, Other - low back pain , diarrhea, cough, SOB Provider Diagnoses: Diarrhea, Low back pain, Cough Discharge - Discharge Plan Condition: Stable Disposition: HOME Prescriptions: Ondansetron ODT TAB* [Zofran 4 MG Odt TAB*] 4 mg PO Q6H PRN #12 tab.odt PRN Reason: Nausea Patient Education Materials: Low Back Strain (ED), Acute Diarrhea (ED), Cold Symptoms (ED) Referrals: Greta Lutz MD [Primary Care Provider] - Additional Instructions: Continue taking medications already prescribed to you as directed for cough, SOB , diarrhea and back pain. (cough medication, inhaler, pain medications and BRAT diet, OTC medication for diarrhea). Take prescribed anti nausea medication as directed when feeling nauseous, so you are able to keep food down. Eat a diet high of yogurt, probiotics, bread, rice, applesauce and bananas. Any new or worsening symptoms please seek medical attention, as discussed. give medication along with rest a few days before improvement. Follow up with PCP.
[2017-06-24] MEDS ORDERED: Morphine INJ* 2 MG/ML 1 ML SYRINGE (TWO MG - NEW SYRINGE VERSION) IV ONE (14:00)
[2017-06-24] MEDS ORDERED: Albuterol/Ipratropium NEB.SOL* Albuterol 2.5 MG/Ipratropium 0.5 MG 3 ML INH ONE (14:02)
[2017-06-24 16:51] VITALS: BP 122/58
== END 2017-06-24 17:42 | disposition home or self-care (01) ==
LOC: ED 12:55
DX: R19.7 Diarrhea, unspecified (principal); M54.5 Low back pain; R05 Cough; F17.210 Nicotine dependence, cigarettes, uncomplicated
CPT/HCPCS: 94640; 96360; 96374; 96375; 99283; A9270-GY; J2270; J2405

== ENCOUNTER 2017-06-24 17:49 | Emergency (ER) | payer OTHER ==
[2017-06-24] MEDS ORDERED: Ondansetron ODT TAB* 4 MG PO ONE (20:01)
--- NOTE | 2017-06-24 20:07 | ED ---
Debora Hayes Alfonso, scribed for Sandrita Biggs MD on 06/24/17 at 1917 . Back Pain - HPI Summary HPI Summary: This patient is a 52 year old F presenting to [facility] accompanied by boyfriend with a chief complaint of back pain s/p an injury approximately one month ago, worse since a few hours ago. She has been to [facility] multiple times for this complaint. The patient rates the pain 9/10 in severity. Symptoms alleviated by nothing. - History of Current Complaint Chief Complaint: EDBackInjuryPain Stated Complaint: BACK PAIN Time Seen by Provider: 06/24/17 18:48 Hx Obtained From: Patient Hx Last Menstrual Period: ABLATION Onset/Duration: Gradual Onset, Worse Since - hours, Other - Lasting one month Severity Currently: Severe Pain Intensity: 9 Pain Scale Used: 0-10 Numeric Alleviating Symptom(s): Nothing - Allergies/Home Medications Allergies/Adverse Reactions: Allergies Allergy/AdvReac Type Severity Reaction Status Date / Time Adhesive Tape Allergy Intermediate Rash Verified 06/20/17 10:30 Omeprazole [From Prilosec] Allergy Intermediate edema/hives Verified 06/20/17 10 :30 Pantoprazole [From Protonix] Allergy Intermediate Edema/hives Verified 06/20/17 10:30 Loratadine [From Claritin] Allergy Rash Verified 06/20/17 10:30 PMH/Surg Hx/FS Hx/Imm Hx Endocrine/Hematology History: Reports: Hx Diabetes, Hx Thyroid Disease Denies: Hx Anticoagulant Therapy Cardiovascular History: Reports: Hx Hypercholesterolemia Denies: Hx Congestive Heart Failure, Hx Deep Vein Thrombosis, Hx Hypertension , Hx Myocardial Infarction, Hx Pacemaker/ICD Respiratory History: Reports: Hx Asthma, Hx Chronic Obstructive Pulmonary Disease (COPD) Denies: Hx Lung Cancer, Hx Pneumonia, Hx Pulmonary Embolism GI History: Reports: Other GI Disorders - hemorrhoids Denies: Hx Gall Bladder Disease, Hx Gastrointestinal Bleed, Hx Ulcer, Hx Urosepsis History: Reports: Hx Renal Disease - STAGE 3 RENAL DISEASE Denies: Hx Kidney Stones Sensory History: Denies: Hx Legally Blind, Hx Deafness Opthamlomology History: Denies: Hx Legally Blind Neurological History: Denies: Hx Dementia, Hx Migraine, Hx Seizures, Hx Transient Ischemic Attacks (TIA) Psychiatric History: Reports: Hx Bipolar Disorder Denies: Hx Anxiety, Hx Depression, Hx Schizophrenia - Surgical History Surgery Procedure, Year, and Place: tubal ligation, uterine ablation 2011 Infectious Disease History: No Infectious Disease History: Denies: Hx Clostridium Difficile, Hx Hepatitis, Hx Human Immunodeficiency Virus (HIV), Hx of Known/Suspected MRSA, Hx Shingles, Hx Tuberculosis, Hx Known/ Suspected VRE, Hx Known/Suspected VRSA, History Other Infectious Disease, Traveled Outside the [place] in Last 30 Days - Family History Known Family History: Positive: Cardiac Disease, Hypertension, Diabetes - Social History Lives: Dormitory/Roommates - boyfriend Alcohol Use: None Substance Use Type: Reports: None Smoking Status (MU): Light Every Day Tobacco Smoker Type: Cigarettes Amount Used/How Often: 4 cigarettes daily Length of Time of Smoking/Using Tobacco: since age 12 Review of Systems Negative: Fever Positive: Other - Back pain All Other Systems Reviewed And Are Negative: Yes Physical Exam - Summary Physical Exam Summary: General: Well appearing, no pain distress Skin: Warm, Skin Color Reflects Adequate Perfusion, Dry Eyes: EOMI, OMID ENT: Pharynx normal, TMs normal Neck: Supple, nontender Respiratory: CTA, breath sounds present, no rhonchi, no wheezes, no rales Cardiovascular: RRR, no murmur, no rub, no gallop Abdomen: Soft, nontender, Non-distended, no guarding, no rebound Bowel: Present Musculoskeletal: SAMUEL, No edema, diffuse back tenderness Neuro: Sensory/motor intact, A&Ox3, CN intact 2-12 Psych: Affect/mood appropriate Triage Information Reviewed: Yes Vital Signs On Initial Exam: Initial Vitals Temp Pulse Resp BP Pulse Ox 98.4 F 91 20 119/69 96 06/24/17 17:52 06/24/17 17:52 06/24/17 17:52 06/24/17 17:52 06/24/17 17:52 Vital Signs Reviewed: Yes - Ines Coma Scale Coma Scale Total: 15 Diagnostics - Vital Signs Vital Signs Temp Pulse Resp BP Pulse Ox 06/24/17 17:52 98.4 F 91 20 119/69 96 - Laboratory Lab Statement: Any lab studies that have been ordered have been reviewed, and results considered in the medical decision making process. Back Pain Course/Dx - Course Course Of Treatment: 52 yo female here after a visit this afternoon unable to get her zofran at the pharmacy and saying she was cut off for pain meds by her pmd she does have a script from here from the last few days and will f/u with pmd neurologically intact, and movement is not limited and back pain is quite diffuse, she is s/p a recent lumbar and thoracic ct. she does have a recent crp that is not elevated and her dm is diet controlled with blood glucose of 100, she does not admit to ivdu and so her chances of having an epidural abscess is very low. - Diagnoses Provider Diagnoses: Back pain Discharge - Discharge Plan Condition: Stable Disposition: HOME Patient Education Materials: Chronic Back Pain (ED) Referrals: Greta Lutz MD [Primary Care Provider] - 3 Days Additional Instructions: RETURN TO THE EMERGENCY DEPARTMENT FOR CHANGING OR WORSENING SYMPTOMS. The documentation as recorded by the Debora ayala Alfonso accurately reflects the service I personally performed and the decisions made by me, Sandrita Biggs MD.
[2017-06-24 20:31] VITALS: BP 121/68
== END 2017-06-24 20:38 | disposition home or self-care (01) ==
LOC: ED 17:49
DX: M54.9 Dorsalgia, unspecified (principal); E11.9 Type 2 diabetes mellitus without complications; F17.210 Nicotine dependence, cigarettes, uncomplicated
CPT/HCPCS: 99282; A9270-GY

== ENCOUNTER 2017-07-02 19:30 | Emergency (ER) | payer SELFPAY ==
[2017-07-02 19:43] VITALS: BP 119/71
--- NOTE | 2017-07-15 01:33 | ED ---
Gianni Hayes Angela, scribed for Jorge Macias MD on 07/03/17 at 0343 . Back Pain - HPI Summary HPI Summary: This pt is a 52 y/o female presenting to [facility] for back pain since 06/14. Pt reports she has had an MRI done, which resulted negative. Pt notes she uses lidocaine cream and muscle relaxants with no relief. Pt states she is able to walk. pt denies urinary or bowel incontinence, numbness or weakness in LE. 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 She denies any back surgeries. - History of Current Complaint Chief Complaint: EDBackInjuryPain Stated Complaint: BACK PAIN Hx Obtained From: Patient Hx Last Menstrual Period: ABLATION Onset/Duration: Lasting Days, Still Present Onset/Duration: Started Days Ago, Still Present Timing: Lasting Days Back Pain Location: Is Discrete @ - bacl Severity Currently: Severe Pain Intensity: 9 Pain Scale Used: 0-10 Numeric Associated Signs And Symptoms: Negative: Weakness, Numbness, Tingling, Bladder Incontinence, Bowel Incontinence - Allergies/Home Medications Allergies/Adverse Reactions: Allergies Allergy/AdvReac Type Severity Reaction Status Date / Time Adhesive Tape Allergy Intermediate Rash Verified 06/28/17 12:26 Omeprazole [From Prilosec] Allergy Intermediate edema/hives Verified 06/28/17 12 :26 Pantoprazole [From Protonix] Allergy Intermediate Edema/hives Verified 06/28/17 12:26 Loratadine [From Claritin] Allergy Rash Verified 06/28/17 12:26 PMH/Surg Hx/FS Hx/Imm Hx Endocrine/Hematology History: Reports: Hx Diabetes, Hx Thyroid Disease Denies: Hx Anticoagulant Therapy Cardiovascular History: Reports: Hx Hypercholesterolemia Denies: Hx Congestive Heart Failure, Hx Deep Vein Thrombosis, Hx Hypertension , Hx Myocardial Infarction, Hx Pacemaker/ICD Respiratory History: Reports: Hx Asthma, Hx Chronic Obstructive Pulmonary Disease (COPD) Denies: Hx Lung Cancer, Hx Pneumonia, Hx Pulmonary Embolism GI History: Reports: Other GI Disorders - hemorrhoids Denies: Hx Gall Bladder Disease, Hx Gastrointestinal Bleed, Hx Ulcer, Hx Urosepsis History: Reports: Hx Renal Disease - STAGE 3 RENAL DISEASE Denies: Hx Kidney Stones Sensory History: Denies: Hx Legally Blind, Hx Deafness, Hx Hearing Aid Opthamlomology History: Denies: Hx Legally Blind Neurological History: Denies: Hx Dementia, Hx Migraine, Hx Seizures, Hx Transient Ischemic Attacks (TIA) Psychiatric History: Reports: Hx Panic Disorder, Hx Bipolar Disorder Denies: Hx Anxiety, Hx Depression, Hx Schizophrenia - Surgical History Surgery Procedure, Year, and Place: tubal ligation, uterine ablation 2011 Infectious Disease History: No Infectious Disease History: Denies: Hx Clostridium Difficile, Hx Hepatitis, Hx Human Immunodeficiency Virus (HIV), Hx of Known/Suspected MRSA, Hx Shingles, Hx Tuberculosis, Hx Known/ Suspected VRE, Hx Known/Suspected VRSA, History Other Infectious Disease, Traveled Outside the [place] in Last 30 Days - Family History Known Family History: Positive: Cardiac Disease, Hypertension, Diabetes - Social History Alcohol Use: None Substance Use Type: Reports: None Smoking Status (MU): Light Every Day Tobacco Smoker Type: Cigarettes Amount Used/How Often: 1 PPD Length of Time of Smoking/Using Tobacco: since age 12 Review of Systems Positive: Other - ambulating at home. Negative: Fever, Chills Negative: incontinence - urine or stool Positive: Other - back pain Negative: Weakness, Paresthesia, Numbness All Other Systems Reviewed And Are Negative: Yes Physical Exam - Summary Physical Exam Summary: Appearance: Well-nourished. Lethargic but arousable. No signs of obvious trauma. Skin: Warm, Dry, No rash Eyes: Normal, PERRL, EOMI, sclera anicteric ENT: Normal Neck: Supple, nontender Respiratory: Clear to auscultation Cardiovascular: S1, S2, no murmur, no rub, no gallop Abdomen: Soft, nontender, no organomegaly Bowel sounds: Present Musculoskeletal: Normal, Strength/ROM Intact, no edema, pulses symmetrical. Moving bother LE. No edema noted. Neurological: Normal, A&Ox3, cranial nerves 2-12 wnl, follows commands, gait not tested, sensation intact to pin and light touch Psychiatric: affect normal, behavior appropriate, dressed appropriately, judgment intact Triage Information Reviewed: Yes Vital Signs On Initial Exam: Initial Vitals Temp Pulse Resp BP Pulse Ox 97.4 F 100 16 119/71 100 07/02/17 19:39 07/02/17 19:39 07/02/17 19:39 07/02/17 19:39 07/02/17 19:39 Vital Signs Reviewed: Yes Diagnostics - Vital Signs Vital Signs Temp Pulse Resp BP Pulse Ox 07/02/17 19:39 97.4 F 100 16 119/71 100 - Laboratory Lab Statement: Any lab studies that have been ordered have been reviewed, and results considered in the medical decision making process. Back Pain Course/Dx - Course Assessment/Plan: Pt had a complete evaluation on June 28 for back pain that worsened after falling down the stairs. Pt had a thoracic and lumbar MRI, and CT of cervical spine. Both MRIs were negative and CT of cervical spine showed no fracture with degenerative disc disease. Pt does not report any new fall. No incontinence of urine or stool. Pt is ambulating at home. Pt is in the ED after disagreement with her PCP regarding worker's comp. Possible drug seeking behavior. Pt will be discharged home. - Diagnoses Provider Diagnoses: Chronic back pain Discharge - Discharge Plan Condition: Good Disposition: HOME Patient Education Materials: Chronic Back Pain (ED) Referrals: Greta Lutz MD [Primary Care Provider] - Additional Instructions: as tolerated, may return to work The documentation as recorded by the Gianni ayala Angela accurately reflects the service I personally performed and the decisions made by me, Jorge Macias MD.
== END 2017-07-02 21:33 | disposition home or self-care (01) ==
LOC: ED 19:30
DX: M54.9 Dorsalgia, unspecified (principal); G89.29 Other chronic pain; E78.00 Pure hypercholesterolemia, unspecified; J44.9 Chronic obstructive pulmonary disease, unspecified; N18.3 Chronic kidney disease, stage 3 (moderate); F31.9 Bipolar disorder, unspecified; F17.210 Nicotine dependence, cigarettes, uncomplicated
CPT/HCPCS: 99283

== ENCOUNTER 2017-07-04 23:19 | Emergency (ER) | payer OTHER ==
[2017-07-04] MEDS ORDERED: Albuterol (2.5 MG) 0.5 % CONC 2.5 MG/0.5 ML NEB.SOLN (ICU and ED only) INH ONE (23:54)
[2017-07-05] MEDS ORDERED: Albuterol 2.5 MG/3 ML NEB.SOL* (0.083%) ONE (00:11)
[2017-07-05 01:45] LABS: Hematocrit 37 % (35-47); Hemoglobin 12.4 g/dl (12.0-16.0); Mean Corpuscular HGB Conc 34 g/dl (31-36); Mean Corpuscular Hemoglobin 29 pg (27-31); Mean Corpuscular Volume 88 fL (80-97); Mean Platelet Volume 9 um3 (7.4-10.4); Red Blood Count 4.21 10^6/ul (4.0-5.4); Red Cell Distribution Width 15 % (10.5-15); White Blood Count 10.7 10^3/ul (3.5-10.8)
[2017-07-05 02:35] VITALS: BP 105/69
--- NOTE | 2017-07-05 08:32 | RAD ---
INDICATION: Wheezing COMPARISON: July 03, 2017 TECHNIQUE: PA and lateral dual-energy views were obtained. FINDINGS: Bones/Soft Tissues: There are no acute bony findings. Cardiomediastinal: The cardiomediastinal silhouette is normal. Lungs: There are no infiltrates. Pleura: There are no pleural effusions. Other: There is a prominent gastric air bubble. IMPRESSION: NO ACTIVE DISEASE.
--- NOTE | 2017-07-13 02:29 | ED ---
Yasmeen Hayes Emily, scribed for Jorge Macias MD on 07/05/17 at 0001 . Respiratory - HPI Summary HPI Summary: This patient is a 52 year old F BIBA to [facility] with a chief complaint of productive cough that began 2 days ago. The patient rates the pain 0/10 in severity. Symptoms aggravated by nothing. Symptoms alleviated by nothing. Patient reports chills and SOB. Patient denies fevers. Pt reports hx of pneumonia. - History of Current Complaint Chief Complaint: EDShortnessOfBreath Stated Complaint: DIFFICULTY BREATHING Time Seen by Provider: 07/04/17 23:53 Hx Obtained From: Patient Onset/Duration: Sudden Onset, Lasting Days, Still Present Initial Severity: Mild Current Severity: Mild Pain Intensity: 0 Character: Cough (Productive) Aggravating Factor(s): Nothing Alleviating Factor(s): Nothing Associated Signs and Symptoms: SOB, Chills - Allergy/Home Medications Allergies/Adverse Reactions: Allergies Allergy/AdvReac Type Severity Reaction Status Date / Time Adhesive Tape Allergy Intermediate Rash Verified 06/28/17 12:26 Omeprazole [From Prilosec] Allergy Intermediate edema/hives Verified 06/28/17 12 :26 Pantoprazole [From Protonix] Allergy Intermediate Edema/hives Verified 06/28/17 12:26 Loratadine [From Claritin] Allergy Rash Verified 06/28/17 12:26 PMH/Surg Hx/FS Hx/Imm Hx Previously Healthy: No Endocrine/Hematology History: Reports: Hx Diabetes, Hx Thyroid Disease Denies: Hx Anticoagulant Therapy Cardiovascular History: Reports: Hx Hypercholesterolemia Denies: Hx Congestive Heart Failure, Hx Deep Vein Thrombosis, Hx Hypertension , Hx Myocardial Infarction, Hx Pacemaker/ICD Respiratory History: Reports: Hx Asthma, Hx Chronic Obstructive Pulmonary Disease (COPD) Denies: Hx Lung Cancer, Hx Pneumonia, Hx Pulmonary Embolism GI History: Reports: Other GI Disorders - hemorrhoids Denies: Hx Gall Bladder Disease, Hx Gastrointestinal Bleed, Hx Ulcer, Hx Urosepsis History: Reports: Hx Renal Disease - STAGE 3 RENAL DISEASE Denies: Hx Kidney Stones Sensory History: Denies: Hx Legally Blind, Hx Deafness, Hx Hearing Aid Opthamlomology History: Denies: Hx Legally Blind Neurological History: Denies: Hx Dementia, Hx Migraine, Hx Seizures, Hx Transient Ischemic Attacks (TIA) Psychiatric History: Reports: Hx Panic Disorder, Hx Bipolar Disorder Denies: Hx Anxiety, Hx Eating Disorder, Hx Depression, Hx Schizophrenia, Hx of Violent Episodes Against Others - Surgical History Surgery Procedure, Year, and Place: tubal ligation, uterine ablation 2011 Infectious Disease History: No Infectious Disease History: Denies: Hx Clostridium Difficile, Hx Hepatitis, Hx Human Immunodeficiency Virus (HIV), Hx of Known/Suspected MRSA, Hx Shingles, Hx Tuberculosis, Hx Known/ Suspected VRE, Hx Known/Suspected VRSA, History Other Infectious Disease, Traveled Outside the [place] in Last 30 Days - Family History Known Family History: Positive: Cardiac Disease, Hypertension, Diabetes - Social History Occupation: Unemployed Lives: Alone Alcohol Use: None Substance Use Type: Reports: None Smoking Status (MU): Heavy Every Day Tobacco Smoker Type: Cigarettes Amount Used/How Often: 1 PPD Length of Time of Smoking/Using Tobacco: since age 12 Review of Systems Positive: Chills. Negative: Fever Positive: Shortness Of Breath, Cough All Other Systems Reviewed And Are Negative: Yes Physical Exam - Summary Physical Exam Summary: Appearance: Well-appearing, Well-nourished Skin: Warm, Dry, No rash Eyes: Normal, PERRL, EOMI, sclera anicteric ENT: Normal Neck: Supple, nontender Respiratory: Clear to auscultation Cardiovascular: Systolic murmur at aortic notch, murmur most likely aortic stenosis, S2 well preserved, carotid upstrokes may be slightly delayed Abdomen: Soft, nontender, no organomegaly Bowel sounds: Present Musculoskeletal: Normal, Strength/ROM Intact, no edema, pulses symmetrical Neurological: Normal, A&Ox3, cranial nerves 2-12 wnl, follows commands, gait not tested, sensation intact to pin and light touch Psychiatric: affect normal, behavior appropriate, dressed appropriately, judgment intact Triage Information Reviewed: Yes Vital Signs On Initial Exam: Initial Vitals Temp Pulse Resp BP Pulse Ox 98.8 F 100 16 127/68 97 07/04/17 23:29 07/04/17 23:29 07/04/17 23:29 07/04/17 23:29 07/04/17 23:29 Vital Signs Reviewed: Yes Diagnostics - Vital Signs Vital Signs Temp Pulse Resp BP Pulse Ox 07/04/17 23:29 98.8 F 100 16 127/68 97 - Laboratory Result Diagrams: 07/05/17 00:26 Lab Statement: Any lab studies that have been ordered have been reviewed, and results considered in the medical decision making process. - Radiology CXR Radiology Interpretation Completed By: ED Physician - CXR read by ED physician reveals L and R lower lobe atelectasis and poor inspiratory effort. - EKG 0008 Cardiac Rate: NL EKG Rhythm: Sinus Rhythm - [address] Segment: Normal Disposition - Course Assessment/Plan: This patient is a 52 year old F BIBA to [facility] with a chief complaint of productive cough that began 2 days ago. The patient rates the pain 0/10 in severity. Symptoms aggravated by nothing. Symptoms alleviated by nothing. Patient reports chills and SOB. Patient denies fevers. Pt reports hx of pneumonia. Physical Exam Findings. Systolic murmur at aortic notch, murmur most likely aortic stenosis, S2 well preserved, carotid upstrokes may be slightly delayed. Medical Decision Making. An EKG taken at 0008 reveals normal sinus rhythm at [address] segment. CXR read by ED physician reveals L and R lower lobe atelectasis and poor inspiratory effort. Test results within normal limits. In the ED course the patient was given inhalation treatment and. Patient will be discharged with a prescription for amoxicillin and with follow up from PCP. The patient is agreeable with this plan. - Diagnoses Provider Diagnoses: Bronchitis, COPD (chronic obstructive pulmonary disease) Discharge - Discharge Plan Condition: Good Disposition: HOME Prescriptions: Amoxicillin PO (*) [Amoxicillin 875 MG (*)] 875 mg PO BID 7 Days #14 tab MDD 2 Patient Education Materials: Acute Bronchitis (ED) Referrals: Greta Lutz MD [Primary Care Provider] - The documentation as recorded by the Yasmeen ayala Emily accurately reflects the service I personally performed and the decisions made by me, Jorge Macias MD.
== END 2017-07-05 02:42 | disposition home or self-care (01) ==
LOC: ED 23:19
DX: J44.9 Chronic obstructive pulmonary disease, unspecified (principal); J45.909 Unspecified asthma, uncomplicated; N18.3 Chronic kidney disease, stage 3 (moderate); F17.210 Nicotine dependence, cigarettes, uncomplicated; E11.9 Type 2 diabetes mellitus without complications; E78.00 Pure hypercholesterolemia, unspecified
CPT/HCPCS: 36415; 71020; 83880; 84484; 85025; 85379; 93005; 94640

== ENCOUNTER 2017-07-09 05:00 | Emergency (ER) | payer OTHER ==
[2017-07-09 08:07] LABS: Hematocrit 38 % (35-47); Hemoglobin 12.6 g/dl (12.0-16.0); Mean Corpuscular HGB Conc 33 g/dl (31-36); Mean Corpuscular Hemoglobin 29 pg (27-31); Mean Corpuscular Volume 88 fL (80-97); Mean Platelet Volume 9 um3 (7.4-10.4); Red Blood Count 4.28 10^6/ul (4.0-5.4); Red Cell Distribution Width 14 % (10.5-15); White Blood Count 11.3 10^3/ul (3.5-10.8)
[2017-07-09 08:18] LABS: Albumin 3.9 g/dL (3.2-5.2); BUN/Creatinine Ratio 16.7 (8-20); C Reactive Protein 4.73 mg/L (< 5.00); Calcium 9.5 mg/dL (8.6-10.3); EGFR African American 109.4 (>60); EGFR Non-African American 85.1 (>60); Globulin 2.8 g/dL (2-4); Total Bilirubin 0.2 mg/dL (0.2-1.0); Total Protein 6.7 g/dL (6.4-8.9)
[2017-07-09 08:19] LABS: Urine Bacteria Absent (Absent); Urine Bilirubin Negative (Negative); Urine Glucose Negative (Negative); Urine Nitrite Negative (Negative)
--- NOTE | 2017-07-09 08:19 | RAD ---
HISTORY: Fall, dizziness, cough COMPARISONS: July 05, 2017 VIEWS: 4: Frontal dual-energy and lateral views of the chest. FINDINGS: CARDIOMEDIASTINAL SILHOUETTE: The cardiomediastinal silhouette is normal. AGA: The aga are normal. PLEURA: The costophrenic angles are sharp. No pleural abnormalities are noted. LUNG PARENCHYMA: The lungs are clear. ABDOMEN: The upper abdomen is clear. There is no subphrenic gas. BONES AND SOFT TISSUES: Mild degenerative changes are noted OTHER: None. IMPRESSION: NO ACTIVE CARDIOPULMONARY DISEASE.
[2017-07-09 08:32] LABS: Benzodiazepine Urine Screen None Detected (None Detect)
[2017-07-09 08:47] LABS: TSH (Thyroid Stimulating Horm) 0.58 mcIU/mL (0.34-5.60)
[2017-07-09 09:07] VITALS: BP 145/84
--- NOTE | 2017-07-09 18:42 | ED ---
Gianni Hayes Angela, scribed for Guru Guzman MD on 07/09/17 at 0709 . Headache - HPI Summary HPI Summary: This pt is a 52 y/o female presenting to [facility] c/o headache s/p falling off the toilet this morning. Pt reports she is unsure if she hit her head on the sink. She additionally states her face and feet are numb. Pt states "maybe my electrolytes are off." Pt has multiple visits in the ED for back pain within the past month, and has had MRIs and CTs done, which were all normal. Per nurse 's note, she has not been following up with her PCP because she states her PCP won't give her any pain medication and they want her to go to physical therapy.She reports she has an appointment with her PCP today. Per nurse's note, pt has been on worker's comp and is supposed to go back to work today at [employer]. Pt asked the nurse to call [employer] and tell her boss she is in the ED. - History Of Current Complaint Chief Complaint: EDHeadache Stated Complaint: HEADACHE Time Seen by Provider: 07/09/17 05:01 Hx Obtained From: Patient Hx Last Menstrual Period: ABLATION Onset/Duration: Started hours ago, Still Present Timing: Hours Location of Headache: Diffuse Aggravating Factor: Nothing Allevating Factors: Nothing Associated Signs And Symptoms: Other (Noted In Comments) - numbness in face and feet - Allergies/Home Medications Allergies/Adverse Reactions: Allergies Allergy/AdvReac Type Severity Reaction Status Date / Time Adhesive Tape Allergy Intermediate Rash Verified 06/28/17 12:26 Omeprazole [From Prilosec] Allergy Intermediate edema/hives Verified 06/28/17 12 :26 Pantoprazole [From Protonix] Allergy Intermediate Edema/hives Verified 06/28/17 12:26 Loratadine [From Claritin] Allergy Rash Verified 06/28/17 12:26 PMH/Surg Hx/FS Hx/Imm Hx Endocrine/Hematology History: Reports: Hx Diabetes, Hx Thyroid Disease Denies: Hx Anticoagulant Therapy Cardiovascular History: Reports: Hx Hypercholesterolemia Denies: Hx Congestive Heart Failure, Hx Deep Vein Thrombosis, Hx Hypertension , Hx Myocardial Infarction, Hx Pacemaker/ICD Respiratory History: Reports: Hx Asthma, Hx Chronic Obstructive Pulmonary Disease (COPD) Denies: Hx Lung Cancer, Hx Pneumonia, Hx Pulmonary Embolism GI History: Reports: Other GI Disorders - hemorrhoids Denies: Hx Gall Bladder Disease, Hx Gastrointestinal Bleed, Hx Ulcer, Hx Urosepsis History: Reports: Hx Renal Disease - STAGE 3 RENAL DISEASE Denies: Hx Kidney Stones Sensory History: Denies: Hx Legally Blind, Hx Deafness, Hx Hearing Aid Opthamlomology History: Denies: Hx Legally Blind Neurological History: Denies: Hx Dementia, Hx Migraine, Hx Seizures, Hx Transient Ischemic Attacks (TIA) Psychiatric History: Reports: Hx Panic Disorder, Hx Bipolar Disorder Denies: Hx Anxiety, Hx Eating Disorder, Hx Depression, Hx Schizophrenia, Hx of Violent Episodes Against Others - Surgical History Surgery Procedure, Year, and Place: tubal ligation, uterine ablation 2011 Infectious Disease History: No Infectious Disease History: Denies: Hx Clostridium Difficile, Hx Hepatitis, Hx Human Immunodeficiency Virus (HIV), Hx of Known/Suspected MRSA, Hx Shingles, Hx Tuberculosis, Hx Known/ Suspected VRE, Hx Known/Suspected VRSA, History Other Infectious Disease, Traveled Outside the [place] in Last 30 Days - Family History Known Family History: Positive: Cardiac Disease, Hypertension, Diabetes - Social History Alcohol Use: None Substance Use Type: Reports: None Hx Tobacco Use: Yes Smoking Status (MU): Heavy Every Day Tobacco Smoker Type: Cigarettes Amount Used/How Often: 1 PPD Length of Time of Smoking/Using Tobacco: since age 12 Review of Systems Constitutional: Other - fall Negative: Fever, Chills Eyes: Negative ENT: Negative Cardiovascular: Negative Respiratory: Negative Negative: Decreased ROM Positive: Headache, Numbness - face and feet All Other Systems Reviewed And Are Negative: Yes Physical Exam - Summary Physical Exam Summary: VITAL SIGNS: Reviewed. GENERAL: Patient is a well-developed and nourished female who is lying comfortable in the stretcher. Patient is not in any acute respiratory distress. HEAD AND FACE: No signs of trauma. No ecchymosis, hematomas or skull depressions. No sinus tenderness. No skin abrasions. EYES: PERRLA, EOMI x 2, No injected conjunctiva, no nystagmus. EARS: Hearing grossly intact. Ear canals and tympanic membranes are within normal limits. MOUTH: Oropharynx within normal limits. NECK: Supple, trachea is midline, no adenopathy, no JVD, no carotid bruit, no c- spine tenderness, neck with full ROM. CHEST: Symmetric, no tenderness at palpation LUNGS: Clear to auscultation bilaterally. No wheezing or crackles. CVS: Regular rate and rhythm, S1 and S2 present, no murmurs or gallops appreciated. ABDOMEN: Soft, non-tender. No signs of distention. No rebound no guarding, and no masses palpated. Bowel sounds are normal. No costovertebral tenderness. EXTREMITIES: FROM in all major joints, no edema, no cyanosis or clubbing. Back: No bruising. No deformities. NEURO: Alert and oriented x 3. No acute neurological deficits. Speech is normal and follows commands. SKIN: Dry and warm Triage Information Reviewed: Yes Vital Signs On Initial Exam: Initial Vitals Temp Pulse Resp BP Pulse Ox 97.8 F 74 16 152/80 99 07/09/17 05:02 07/09/17 05:02 07/09/17 05:02 07/09/17 05:02 07/09/17 05:02 Vital Signs Reviewed: Yes Diagnostics - Vital Signs Vital Signs Temp Pulse Resp BP Pulse Ox 07/09/17 05:02 97.8 F 74 16 152/80 99 - Laboratory Lab Results: Lab Results 07/09/17 07/09/17 07/09/17 Range/Units 07:40 07:40 07:40 WBC 11.3 H (3.5-10.8) 10^3/ul RBC 4.28 (4.0-5.4) 10^6/ul Hgb 12.6 (12.0-16.0) g/dl Hct 38 (35-47) % MCV 88 (80-97) fL MCH 29 (27-31) pg MCHC 33 (31-36) g/dl RDW 14 (10.5-15) % Plt Count 336 (150-450) 10^3/ul MPV 9 (7.4-10.4) um3 Neut % (Auto) 69.3 (38-83) % Lymph % (Auto) 21.9 L (25-47) % [place] % (Auto) 4.3 (1-9) % Eos % (Auto) 3.6 (0-6) % Baso % (Auto) 0.9 (0-2) % Absolute Neuts (auto) 7.8 H (1.5-7.7) 10^3/ul Absolute Lymphs (auto) 2.5 (1.0-4.8) 10^3/ul Absolute Monos (auto) 0.5 (0-0.8) 10^3/ul Absolute Eos (auto) 0.4 (0-0.6) 10^3/ul Absolute Basos (auto) 0.1 (0-0.2) 10^3/ul Absolute Nucleated RBC 0.01 10^3/ul Nucleated RBC % 0.1 Sodium 139 (133-145) mmol/L Potassium 4.0 (3.5-5.0) mmol/L Chloride 110 (101-111) mmol/L Carbon Dioxide 25 (22-32) mmol/L Anion Gap 4 (2-11) mmol/L BUN 12 (6-24) mg/dL Creatinine 0.72 (0.51-0.95) mg/dL Est GFR ( Amer) 109.4 (>60) Est GFR (Non-Af Amer) 85.1 (>60) BUN/Creatinine Ratio 16.7 (8-20) Glucose 122 H (70-100) mg/dL Calcium 9.5 (8.6-10.3) mg/dL Total Bilirubin 0.20 (0.2-1.0) mg/dL AST 16 (13-39) U/L ALT 15 (7-52) U/L Alkaline Phosphatase 121 H (34-104) U/L C-Reactive Protein 4.73 (< 5.00) mg/L Total Protein 6.7 (6.4-8.9) g/dL Albumin 3.9 (3.2-5.2) g/dL Globulin 2.8 (2-4) g/dL Albumin/Globulin Ratio 1.4 (1-3) TSH 0.58 (0.34-5.60) mcIU/mL Urine Color Yellow Urine Appearance Clear Urine pH 6.0 (5-9) Ur Specific [place] 1.006 L (1.010-1.030) Urine Protein Negative (Negative) Urine Ketones Negative (Negative) Urine Blood 1+ H (Negative) Urine Nitrate Negative (Negative) Urine Bilirubin Negative (Negative) Urine Urobilinogen Negative (Negative) Ur Leukocyte Esterase Negative (Negative) Urine WBC (Auto) Trace(0-5/hpf) (Absent) Urine RBC (Auto) Trace(0-2/hpf) (Absent) Ur Squamous Epith Cells Present H (Absent) Urine Bacteria Absent (Absent) Urine Glucose Negative (Negative) Urine Opiates Screen (None Detect) Ur Barbiturates Screen (None Detect) Ur Phencyclidine Scrn (None Detect) Ur Amphetamines Screen (None Detect) U Benzodiazepines Scrn (None Detect) Urine Cocaine Screen (None Detect) U Cannabinoids Screen (None Detect) 07/09/17 Range/Units 07:40 WBC (3.5-10.8) 10^3/ul RBC (4.0-5.4) 10^6/ul Hgb (12.0-16.0) g/dl Hct (35-47) % MCV (80-97) fL MCH (27-31) pg MCHC (31-36) g/dl RDW (10.5-15) % Plt Count (150-450) 10^3/ul MPV (7.4-10.4) um3 Neut % (Auto) (38-83) % Lymph % (Auto) (25-47) % [place] % (Auto) (1-9) % Eos % (Auto) (0-6) % Baso % (Auto) (0-2) % Absolute Neuts (auto) (1.5-7.7) 10^3/ul Absolute Lymphs (auto) (1.0-4.8) 10^3/ul Absolute Monos (auto) (0-0.8) 10^3/ul Absolute Eos (auto) (0-0.6) 10^3/ul Absolute Basos (auto) (0-0.2) 10^3/ul Absolute Nucleated RBC 10^3/ul Nucleated RBC % Sodium (133-145) mmol/L Potassium (3.5-5.0) mmol/L Chloride (101-111) mmol/L Carbon Dioxide (22-32) mmol/L Anion Gap (2-11) mmol/L BUN (6-24) mg/dL Creatinine (0.51-0.95) mg/dL Est GFR ( Amer) (>60) Est GFR (Non-Af Amer) (>60) BUN/Creatinine Ratio (8-20) Glucose (70-100) mg/dL Calcium (8.6-10.3) mg/dL Total Bilirubin (0.2-1.0) mg/dL AST (13-39) U/L ALT (7-52) U/L Alkaline Phosphatase (34-104) U/L C-Reactive Protein (< 5.00) mg/L Total Protein (6.4-8.9) g/dL Albumin (3.2-5.2) g/dL Globulin (2-4) g/dL Albumin/Globulin Ratio (1-3) TSH (0.34-5.60) mcIU/mL Urine Color Urine Appearance Urine pH (5-9) Ur Specific [place] (1.010-1.030) Urine Protein (Negative) Urine Ketones (Negative) Urine Blood (Negative) Urine Nitrate (Negative) Urine Bilirubin (Negative) Urine Urobilinogen (Negative) Ur Leukocyte Esterase (Negative) Urine WBC (Auto) (Absent) Urine RBC (Auto) (Absent) Ur Squamous Epith Cells (Absent) Urine Bacteria (Absent) Urine Glucose (Negative) Urine Opiates Screen None detected (None Detect) Ur Barbiturates Screen None detected (None Detect) Ur Phencyclidine Scrn None detected (None Detect) Ur Amphetamines Screen None detected (None Detect) U Benzodiazepines Scrn None detected (None Detect) Urine Cocaine Screen None detected (None Detect) U Cannabinoids Screen None detected (None Detect) Result Diagrams: 07/09/17 07:40 07/09/17 07:40 Lab Statement: Any lab studies that have been ordered have been reviewed, and results considered in the medical decision making process. - Radiology Chest XR Xray Interpretation: No Acute Changes - IMPRESSION: No active cardiopulmonary disease. ED physician has reviewed this radiology report and agrees. Radiology Interpretation Completed By: Radiologist - EKG 0836 Cardiac Rate: NL EKG Rhythm: Sinus Rhythm - at 80 bpm EKG Interpretation: No ST elevation Headache Course/Dx - Course Assessment/Plan: This pt is a 52 y/o female presenting to [facility] c/o headache s/ p falling off the toilet this morning. Pt reports she is unsure if she hit her head on the sink. She additionally states her face and feet are numb. Pt states "maybe my electrolytes are off." Pt has multiple visits in the ED for back pain within the past month, and has had MRIs and CTs done, which were all normal. Per nurse's note, she has not been following up with her PCP because she states her PCP won't give her any pain medication and they want her to go to physical therapy.She reports she has an appointment with her PCP today. Per nurse's note , pt has been on worker's comp and is supposed to go back to work today at [employer]. Pt asked the nurse to call [employer] and tell her boss she is in the ED. Test results without any significant abnormalities except for WBC of 11.3, without any bandemia, glucose of 122. Urinalysis is negative for UTI. Urine toxicology is negative. Pt is alert and oriented x3. She is ambulating without any pain and the neurological exam is intact, therefore, I decided not to do a head CT, even though she reports she accidentally fell in the bathroom. Since all the test results are negative and the pt has no other complaints, I will discharge the pt home with follow up from her PCP. Pt is hemodynamically stable , alert and oriented x3. No neurological focal deficits. Pt ambulated out of the emergency department. - Diagnoses Provider Diagnoses: Accidental fall Discharge - Discharge Plan Condition: Stable Disposition: HOME Patient Education Materials: Fall Prevention (ED) Referrals: Greta Lutz MD [Primary Care Provider] - Additional Instructions: Please follow up with your primary care provider. RETURN TO THE ED FOR ANY WORSENING SYMPTOMS. The documentation as recorded by the Gianni ayala Angela accurately reflects the service I personally performed and the decisions made by me, Guru Guzman MD.
== END 2017-07-09 09:07 | disposition home or self-care (01) ==
LOC: ED 05:00
DX: R51 Headache (principal); W18.11XA Fall from or off toilet without subsequent striking against object, initial encounter; Y92.9 Unspecified place or not applicable; E78.00 Pure hypercholesterolemia, unspecified; J44.9 Chronic obstructive pulmonary disease, unspecified; F17.210 Nicotine dependence, cigarettes, uncomplicated; E11.9 Type 2 diabetes mellitus without complications
CPT/HCPCS: 36415; 71020; 80053; 80307; 81003; 81015; 84443; 85025; 86140; 93005; 99282

== ENCOUNTER 2017-07-14 12:29 | Emergency (ER) | payer OTHER ==
[2017-07-14] MEDS ORDERED: Acetaminophen TAB* 325 MG PO ONE (14:39)
--- NOTE | 2017-07-14 14:42 | ED ---
Nuria Hayes Nilda, scribed for Faye Youssef MD on 07/14/17 at 1435 . Back Pain - HPI Summary HPI Summary: This patient is a 52 year old F presenting to [facility] [place] with a chief complaint of back pain that has recently begun radiating down buttock and LLE for the past 2 days. Patient states that she injured her back at work 06/14/2017 s/p heavy lifting. Pt states she has seen her PCP for back pain. Pt states has been prescribed lidocaine cream which she can apply 4 times a day. Pt states last application this morning. Pt also applies heat at time. The patient rates the sharp pain 8/10 in severity. Pain is worse with movement and palpation. no recurrent injury. Pt states legs feels weak but no falls. Patient also reports bladder and bowel incontinence for the past 2-3 weeks. Pt states has been evaluated for this. Pt has not called her PCP for follow-up recently. Pt states she was in physical therapy but was too painful so did not continue. Pt has not taken any APAP and was told could not take NSAID second to kidneys Patient medication reviewed this visit. - History of Current Complaint Chief Complaint: UCBackPain Stated Complaint: BACK PAIN-wc Time Seen by Provider: 07/14/17 14:25 Hx Obtained From: Patient Hx Last Menstrual Period: menopausal- last period was 6 years ago Onset/Duration: Sudden Onset, Lasting Weeks, Still Present Onset/Duration: Started Weeks Ago, Still Present Timing: Constant Back Pain Location: Radiates To - buttock and LLE Severity Initially: Moderate Severity Currently: Severe Pain Intensity: 8 Pain Scale Used: 0-10 Numeric Character: Sharp Aggravating Symptom(s): Movement, Bending, Walking Alleviating Symptom(s): Heat, Other - lidocaine ointment Associated Signs And Symptoms: Positive: Numbness, Tingling, Bladder Incontinence, Bowel Incontinence - Allergies/Home Medications Allergies/Adverse Reactions: Allergies Allergy/AdvReac Type Severity Reaction Status Date / Time Adhesive Tape Allergy Intermediate Rash Verified 07/14/17 14:15 Omeprazole [From Prilosec] Allergy Intermediate edema/hives Verified 07/14/17 14 :15 Pantoprazole [From Protonix] Allergy Intermediate Edema/hives Verified 07/14/17 14:15 Loratadine [From Claritin] Allergy Rash Verified 07/14/17 14:15 Home Medications: Home Medications Albuterol 0.5% CONC NEB.KATE* [Albuterol 0.5ol*] 1 mg .SEE ORDER 07/14/17 [ History] Gemfibrozil TAB* [Lopid TAB*] 600 mg PO BID 07/14/17 [History Confirmed ] Levothyroxine Sodium [Levo-T] 75 mcg PO DAILY 07/14/17 [History Confirmed ] Lidocaine 4% TOPICAL* [Xylocaine Topical 4%*] 1 applic .SEE ORDER 07/14/17 [ History] PMH/Surg Hx/FS Hx/Imm Hx Previously Healthy: Yes Endocrine/Hematology History: Reports: Hx Diabetes, Hx Thyroid Disease Denies: Hx Anticoagulant Therapy Cardiovascular History: Reports: Hx Hypercholesterolemia Denies: Hx Congestive Heart Failure, Hx Deep Vein Thrombosis, Hx Hypertension , Hx Myocardial Infarction, Hx Pacemaker/ICD Respiratory History: Reports: Hx Asthma, Hx Chronic Obstructive Pulmonary Disease (COPD) Denies: Hx Lung Cancer, Hx Pneumonia, Hx Pulmonary Embolism GI History: Reports: Other GI Disorders - hemorrhoids Denies: Hx Gall Bladder Disease, Hx Gastrointestinal Bleed, Hx Ulcer, Hx Urosepsis History: Reports: Hx Renal Disease - STAGE 3 RENAL DISEASE Denies: Hx Kidney Stones Sensory History: Denies: Hx Legally Blind, Hx Deafness, Hx Hearing Aid Opthamlomology History: Denies: Hx Legally Blind Neurological History: Denies: Hx Dementia, Hx Migraine, Hx Seizures, Hx Transient Ischemic Attacks (TIA) Psychiatric History: Reports: Hx Panic Disorder, Hx Bipolar Disorder Denies: Hx Anxiety, Hx Eating Disorder, Hx Depression, Hx Schizophrenia, Hx of Violent Episodes Against Others - Surgical History Surgery Procedure, Year, and Place: tubal ligation, uterine ablation 2011 Infectious Disease History: No Infectious Disease History: Denies: Hx Clostridium Difficile, Hx Hepatitis, Hx Human Immunodeficiency Virus (HIV), Hx of Known/Suspected MRSA, Hx Shingles, Hx Tuberculosis, Hx Known/ Suspected VRE, Hx Known/Suspected VRSA, History Other Infectious Disease, Traveled Outside the [place] in Last 30 Days - Family History Known Family History: Positive: Cardiac Disease, Hypertension, Diabetes - Social History Occupation: Unemployed Lives: Alone Alcohol Use: None Substance Use Type: Reports: None Hx Tobacco Use: Yes Smoking Status (MU): Heavy Every Day Tobacco Smoker Type: Cigarettes Amount Used/How Often: 1/2 PPD Length of Time of Smoking/Using Tobacco: since age 12 Review of Systems Constitutional: Negative Eyes: Negative Positive: Sore Throat Cardiovascular: Negative Respiratory: Negative Positive: Other - bowel incontinence intermittent Positive: incontinence Positive: Other - back pain radiating to buttock and left leg Neurological: Other - numbness and tingling in legs; fall All Other Systems Reviewed And Are Negative: Yes Physical Exam Triage Information Reviewed: Yes Vital Signs On Initial Exam: Initial Vitals Temp Pulse Resp BP Pulse Ox 99.0 F 93 18 143/71 100 07/14/17 12:58 07/14/17 12:58 07/14/17 12:58 07/14/17 12:58 07/14/17 12:58 Vital Signs Reviewed: Yes Appearance: Positive: Well-Appearing - pt easily changes position -sitting to standing, climbing onto examination table, positoning for exam, No Pain Distress , Well-Nourished Skin: Positive: Warm, Skin Color Reflects Adequate Perfusion, Dry Head/Face: Positive: Normal Head/Face Inspection Eyes: Positive: Normal ENT: Positive: Normal ENT inspection, Hearing grossly normal, Pharyngeal erythema Neck: Positive: Supple, Nontender, No Lymphadenopathy Respiratory/Lung Sounds: Positive: Clear to Auscultation, Breath Sounds Present , Decreased Breath Sounds Cardiovascular: Positive: Normal, RRR, Other - 2+ PT b/l. Negative: Murmur Abdomen Description: Positive: Nontender, No Organomegaly, Soft Bowel Sounds: Positive: Present Musculoskeletal: Positive: Normal, Strength/ROM Intact, Other - No pain spinous process c/t/l/s + full SLE b/l without discomfort 5/5 flex/ext knee, ankle without difficulty + great toe extension Neurological: Positive: Normal, Sensory/Motor Intact, Alert, Oriented to Person Place, Time, Other - ambulatory without difficulty easily changes positon - lyiing to sititng, sitting to stand Adjusts on stretcher + gross sensation b/l equal 2+ patellla without clonus 2+ achilles without clonus neg babinski b/l Psychiatric: Positive: Normal AVPU Assessment: Alert - [place] Coma Scale Best Eye Response: 4 - Spontaneous Best Motor Response: 6 - Obeys Commands Best Verbal Response: 5 - Oriented Diagnostics - Vital Signs Vital Signs Temp Pulse Resp BP Pulse Ox 07/14/17 12:58 99.0 F 93 18 143/71 100 - Laboratory Lab Statement: Any lab studies that have been ordered have been reviewed, and results considered in the medical decision making process. Back Pain Course/Dx - Course Assessment/Plan: Blood pressure noted and patient informed to follow up with PCP. \. Review of pt's visits - Pt had an MRI t spine, l spine 06/28 with complaint of bowel/bladder incontinence. no fracture, hernation or concern for cord compression. Will check urinalysis. APAP. recommend heat, stretch. PCP f/u. physical therapy f/u. Will not give prednisone - pt with hyperglycemia and is on mental health medication. Pt instructed to go to ED if sx worsen or change. Pt in agreement with plan. recommend to ED with any changes to sx or concerns - Diagnoses Provider Diagnoses: Back pain Discharge - Discharge Plan Condition: Stable Disposition: HOME Patient Education Materials: Back Pain (ED) Referrals: Greta Lutz MD [Primary Care Provider] - Additional Instructions: Use your lidoderm cream as instructed by your provider Okay to take tylenol every 6 hours for pain Call your doctor to schedule a follow-up appointment. If your symptoms worsen, your legs don't work or you have other concerns - you should go to the emergency department for further treatment and eval. The documentation as recorded by the Nuria ayala Nilda accurately reflects the service I personally performed and the decisions made by me, Faye Youssef MD.
[2017-07-14 15:15] VITALS: BP 116/72
== END 2017-07-14 15:15 | disposition home or self-care (01) ==
LOC: UCEAST 12:29
DX: M54.9 Dorsalgia, unspecified (principal); J44.9 Chronic obstructive pulmonary disease, unspecified; E07.9 Disorder of thyroid, unspecified; Z72.0 Tobacco use
CPT/HCPCS: 81003; 99212; A9270-GY; G0463

== ENCOUNTER 2017-07-14 12:30 | Emergency (ER) | payer OTHER ==
--- NOTE | 2017-07-14 15:05 | UC ---
Nuria Hayes Nilda, scribed for Faye Youssef MD on 07/14/17 at 1446 . Throat Pain/Nasal Yordan HPI - HPI Summary HPI Summary: This patient is a 52 year old F presenting to [facility] [place] with a chief complaint of constant sore throat for the past few days. Symptoms aggravated by swallowing and alleviated by nothing. No anlagesia taken. No drooling. No cough. No wheeze. Per triage note, patient reports nasal congestion, productive cough ( clear), and fever (resolved). Pt denies these sx at time of exam. No sick contact. No rash. No n/v/d Medications reviewed this visit. - History of Current Complaint Chief Complaint: UCRespiratory Stated Complaint: COUGHING, FEVER Time Seen by Provider: 07/14/17 14:25 Hx Obtained From: Patient, Medical Records - triage note Hx Last Menstrual Period: menopausal- last period was 6 years ago Onset/Duration: Sudden Onset, Lasting Weeks Cough: Productive Associated Signs & Symptoms: Positive: Other - nasal congestion, productive cough (clear), and fever (resolved) - Allergies/Home Medications Allergies/Adverse Reactions: Allergies Allergy/AdvReac Type Severity Reaction Status Date / Time Adhesive Tape Allergy Intermediate Rash Verified 07/14/17 14:15 Omeprazole [From Prilosec] Allergy Intermediate edema/hives Verified 07/14/17 14 :15 Pantoprazole [From Protonix] Allergy Intermediate Edema/hives Verified 07/14/17 14:15 Loratadine [From Claritin] Allergy Rash Verified 07/14/17 14:15 PMH/Surg Hx/FS Hx/Imm Hx Previously Healthy: Yes Other History Of: Negative For: HIV, Hepatitis B, Hepatitis C, Anticoagulant Therapy - Surgical History Surgical History: Yes Surgery Procedure, Year, and Place: tubal ligation, uterine ablation 2011 - Family History Known Family History: Positive: Cardiac Disease, Hypertension, Diabetes - Social History Occupation: Unemployed Lives: Alone Alcohol Use: None Substance Use Type: None Smoking Status (MU): Heavy Every Day Tobacco Smoker Type: Cigarettes Amount Used/How Often: 1/2 PPD Length of Time of Smoking/Using Tobacco: since age 12 When Did the Patient Quit Smoking/Using Tobacco: 03/2014 Household Exposure Type: Cigarettes Review of Systems Constitutional: Fever - resolved ENT: Sore Throat, Sinus Congestion Respiratory: Cough All Other Systems Reviewed And Are Negative: Yes Physical Exam Triage Information Reviewed: Yes Appearance: Well-Appearing, No Pain Distress, Well-Nourished Vital Signs: Initial Vital Signs Temp 99.0 F 07/14/17 13:09 Pulse 92 07/14/17 13:09 Resp 18 07/14/17 13:09 BP 143/71 07/14/17 13:09 Pulse Ox 100 07/14/17 13:09 Vital Signs Reviewed: Yes Eye Exam: Normal Eyes: Positive: Conjunctiva Clear ENT Exam: Normal ENT: Positive: Normal ENT inspection, Hearing grossly normal, Pharyngeal erythema, TMs normal. Negative: Nasal congestion, Nasal drainage, Tonsillar swelling, Tonsillar exudate, Dental tenderness, Sinus tenderness Dental Exam: Normal Neck exam: Normal Neck: Positive: Supple, Nontender, No Lymphadenopathy Respiratory Exam: Normal Respiratory: Positive: Chest non-tender, Lungs clear, Normal breath sounds, No respiratory distress, No accessory muscle use Cardiovascular Exam: Normal Cardiovascular: Positive: RRR, No Murmur, Pulses Normal Abdominal Exam: Normal Abdomen Description: Positive: Nontender, No Organomegaly, Soft Bowel Sounds: Positive: Present Musculoskeletal Exam: Normal Musculoskeletal: Positive: Strength Intact, ROM Intact Neurological Exam: Normal Neurological: Positive: Alert Psychological Exam: Normal Psychological: Positive: Normal Response To Family Skin Exam: Normal Re-Evaluation - Re-Evaluation First Eval Re-Evaluation Time: 15:06 Comment: Reviewed labs with pt. Throat Pain/Nasal Course/Dx - Course Assessment/Plan: This patient is a 52 year old F presenting to [facility] [place] with a chief complaint of constant sore throat for the past few days. Symptoms aggravated by swallowing and alleviated by nothing. Per triage note, patient reports nasal congestion, productive cough (clear), and fever (resolved). Medications reviewed this visit. Blood pressure noted and patient informed to follow up with PCP. Negative strep test. Pt swallowed APAP without difficulty. APAP. gargle/spit. cold fluids to drink. secretion precaution. return precautions. Pt in agreement with plan. . Pt's BP noted to be slightly elevated - pt with a h/o HTN - Differential Dx/Diagnosis Provider Diagnoses: pharyngitis Discharge - Discharge Plan Condition: Stable Disposition: HOME Patient Education Materials: Pharyngitis (ED) Referrals: Greta Lutz MD [Primary Care Provider] - Additional Instructions: - Stay well hydrated. Drink plenty of non-alcoholic, non-caffinated beverages. - Gargle with warm, salt water 2-3 times a day - Cold beverages may be soothing to your throat - popsicles, apple sauce, jello - Once you start to feel better, change your toothbrush and your pillowcase. These infections are spread by secretions - do NOT share eating or drinking utensils - clean items you share with other people such as cell phones, computer mouse, TV remote, computer tablets, etc - Take Tylenol every 6 hours for pain or fever. Take with food. Do NOT take for more than 4-5 days. Call your doctor to schedule a follow-up appointment. The documentation as recorded by the Nuria ayala Nilda accurately reflects the service I personally performed and the decisions made by me, Faye Youssef MD.
[2017-07-14 15:15] VITALS: BP 116/72
== END 2017-07-14 15:15 | disposition home or self-care (01) ==
LOC: UCEAST 12:30
DX: J02.9 Acute pharyngitis, unspecified (principal); Z72.0 Tobacco use
CPT/HCPCS: 87651; 99212; G0463

== ENCOUNTER 2017-08-03 23:20 | Emergency (ER) | payer SELFPAY ==
[2017-08-03 23:27] VITALS: BP 125/64
== END 2017-08-03 23:57 | disposition left against medical advice (07) ==
LOC: ED 23:20
DX: G47.62 Sleep related leg cramps (principal); Z53.21 Procedure and treatment not carried out due to patient leaving prior to being seen by health care provider
CPT/HCPCS: 99281

== ENCOUNTER 2017-09-06 23:32 | Emergency (ER) | payer OTHER ==
[2017-09-07] MEDS ORDERED: Albuterol/Ipratropium NEB.SOL* Albuterol 2.5 MG/Ipratropium 0.5 MG 3 ML INH ONE
[2017-09-07] MEDS ORDERED: Levofloxacin 750 MG IVPREMIX(* 750 MG/150 ML BAG IVPB ONE (00:35)
[2017-09-07] MEDS ORDERED: NS 0.9% 1000 ML* 1,000 ML IV ONE (00:35)
[2017-09-07] MEDS ORDERED: Levofloxacin TAB* 250 MG PO ONE (01:14)
[2017-09-07 01:34] VITALS: BP 140/71
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
--- NOTE | 2017-09-07 08:06 | RAD ---
HISTORY: Cough COMPARISONS: September 08, 2016 VIEWS: 1: frontal portable view of the chest at 12:25 AM FINDINGS: LINES AND TUBES: None. CARDIOMEDIASTINAL SILHOUETTE: The cardiomediastinal silhouette is normal for portable technique. PLEURA: The costophrenic angles are sharp. No pleural abnormalities are noted. LUNG PARENCHYMA: There is minimal patchy alveolar desiccation of left lung base ABDOMEN: The upper abdomen is clear. There is no subphrenic gas. BONES AND SOFT TISSUES: No bone or soft tissue abnormalities are noted. IMPRESSION: MINIMAL LEFT BASILAR ATELECTASIS VERSUS CONSOLIDATION.
== END 2017-09-07 01:34 | disposition home or self-care (01) ==
LOC: ED 23:32
DX: J18.9 Pneumonia, unspecified organism (principal); R19.7 Diarrhea, unspecified; N95.1 Menopausal and female climacteric states; E07.9 Disorder of thyroid, unspecified; E78.00 Pure hypercholesterolemia, unspecified; J44.9 Chronic obstructive pulmonary disease, unspecified; E11.22 Type 2 diabetes mellitus with diabetic chronic kidney disease; N18.3 Chronic kidney disease, stage 3 (moderate); F41.0 Panic disorder [episodic paroxysmal anxiety]; F31.9 Bipolar disorder, unspecified; Z88.8 Allergy status to other drugs, medicaments and biological substances; Z91.048 Other nonmedicinal substance allergy status; F17.210 Nicotine dependence, cigarettes, uncomplicated
CPT/HCPCS: 71045; 94640; 99283; A9270-GY

== ENCOUNTER 2018-11-08 09:20 | Emergency (ER) | payer BC, OTHER ==
[2018-11-08 09:46] LABS: ABS Basophils 0.1 10^3/ul (0-0.2); ABS Eosinophils 0.1 10^3/ul (0-0.6); ABS Lymphocytes 1.4 10^3/ul (1.0-4.8); ABS Monocytes 0.4 10^3/ul (0-0.8); ABS Neutrophils 7.8 10^3/ul (1.5-7.7); ABS Nucleated RBC 0 10^3/ul; Eosinophil % 0.6 %; Hematocrit 41 % (33-41); Hemoglobin 14.1 g/dL (12.0-16.0); Lymphocyte % 14.2 %; Mean Corpuscular HGB Conc 34 g/dL (31-36); Mean Corpuscular Hemoglobin 32 pg (27-31); Mean Corpuscular Volume 95 fL (80-97); Mean Platelet Volume 7.4 fL (7.4-10.4); Nucleated Red Blood Cells % 0; Platelet Count 300 10^3/uL (150-450); Red Blood Count 4.35 10^6 /uL (3.70-4.87); Red Cell Distribution Width 13 % (10.5-15); White Blood Count 9.7 10^3/uL (3.5-10.8)
[2018-11-08 09:55] LABS: INR 0.86 (0.77-1.02)
[2018-11-08 10:03] LABS: Albumin 4.5 g/dL (3.2-5.2); Albumin/Globulin Ratio 1.8 (1-3); BUN/Creatinine Ratio 22.1 (8-20); Calcium 9.5 mg/dL (8.6-10.3); EGFR African American 94.9 (>60); EGFR Non-African American 78.4 (>60); Globulin 2.5 g/dL (2-4); Potassium 3.7 mmol/L (3.5-5.0); Total Bilirubin 0.4 mg/dL (0.2-1.0)
[2018-11-08 10:21] LABS: HCG Pregnancy 2.6 mIU/mL
[2018-11-08 10:39] VITALS: BP 139/72
--- NOTE | 2018-11-08 10:39 | ED ---
HPI Chest Pain - HPI Summary HPI Summary: Patient is a 53-year-old female presenting to the ED from work by way of EMS with acute onset 5/10 chest discomfort which was in the midsternal region, and nonradiating. She did endorse bilateral numbness/tingling to the hands. She states on EMS arrival, she began to feel improved. She denies other symptoms. She has a hx of bipolar d/o with anxiety. She states she feels this is different than her previous episodes of anxiety. Denies hx of cardiac issues. Takes bipolar medications. She takes a baby aspirin daily as "prevention." She denies any worsening stress. - History of Current Complaint Chief Complaint: EDChestPainROMI Time Seen by Provider: 11/08/18 09:21 Hx Obtained From: Patient Hx Last Menstrual Period: menopausal- last period was 6 years ago Onset/Duration: Started Hours Ago Timing: Constant Initial Severity: Mild Current Severity: None Pain Intensity: 0 Chest Pain Location: Mid Sternal Chest Pain Radiates: No Aggravating Factor(s): Nothing Alleviating Factor(s): Nothing Associated Signs and Symptoms: Positive: Anxiety, Numbness, Tingling - Risk Factors Pulmonary Embolism Risk Factors: Negative TAD Risk Factors: Negative - Allergy/Home Medications Allergies/Adverse Reactions: Allergies Allergy/AdvReac Type Severity Reaction Status Date / Time Adhesive Tape Allergy Intermediate Rash Verified 08/03/17 23:28 loratadine Allergy Rash Verified 11/08/18 09:38 omeprazole Allergy Hives Verified 11/08/18 09:38 pantoprazole Allergy Hives Verified 11/08/18 09:38 PMH/Surg Hx/FS Hx/Imm Hx Previously Healthy: Yes Endocrine/Hematology History: Reports: Hx Diabetes, Hx Thyroid Disease Denies: Hx Anticoagulant Therapy Cardiovascular History: Reports: Hx Hypercholesterolemia Denies: Hx Congestive Heart Failure, Hx Deep Vein Thrombosis, Hx Hypertension , Hx Myocardial Infarction, Hx Pacemaker/ICD Respiratory History: Reports: Hx Asthma, Hx Chronic Obstructive Pulmonary Disease (COPD) Denies: Hx Lung Cancer, Hx Pneumonia, Hx Pulmonary Embolism GI History: Reports: Other GI Disorders - hemorrhoids Denies: Hx Gall Bladder Disease, Hx Gastrointestinal Bleed, Hx Ulcer, Hx Urosepsis History: Reports: Hx Renal Disease - STAGE 3 RENAL DISEASE Denies: Hx Kidney Stones Sensory History: Denies: Hx Legally Blind, Hx Deafness, Hx Hearing Aid Opthamlomology History: Denies: Hx Legally Blind Neurological History: Denies: Hx Dementia, Hx Migraine, Hx Seizures, Hx Transient Ischemic Attacks (TIA) Psychiatric History: Reports: Hx Panic Disorder, Hx Bipolar Disorder Denies: Hx Anxiety, Hx Eating Disorder, Hx Depression, Hx Schizophrenia, Hx of Violent Episodes Against Others - Surgical History Surgery Procedure, Year, and Place: tubal ligation, uterine ablation 2011 - Immunization History Hx Pertussis Vaccination: No Immunizations Up to Date: Yes Infectious Disease History: No Infectious Disease History: Denies: Hx Clostridium Difficile, Hx Hepatitis, Hx Human Immunodeficiency Virus (HIV), Hx of Known/Suspected MRSA, Hx Shingles, Hx Tuberculosis, Hx Known/ Suspected VRE, Hx Known/Suspected VRSA, History Other Infectious Disease, Traveled Outside the [place] in Last 30 Days - Family History Known Family History: Positive: Cardiac Disease, Hypertension, Diabetes - Social History Occupation: Employed Full-time Lives: With Family Alcohol Use: None Hx Substance Use: No Substance Use Type: Reports: None Hx Tobacco Use: Yes Smoking Status (MU): Heavy Every Day Tobacco Smoker Type: Cigarettes Amount Used/How Often: 1/2 PPD Length of Time of Smoking/Using Tobacco: since age 12 Review of Systems Constitutional: Negative Negative: Fever, Chills, Fatigue, Skin Diaphoresis Positive: Chest Pain. Negative: Palpitations Negative: Shortness Of Breath, Cough Genitourinary: Negative Positive: no symptoms reported, see HPI Skin: Negative Neurological: Negative All Other Systems Reviewed And Are Negative: Yes Physical Exam Triage Information Reviewed: Yes Vital Signs On Initial Exam: Initial Vitals Temp Pulse Resp BP Pulse Ox 97.6 F 76 16 159/83 100 11/08/18 09:26 11/08/18 09:26 11/08/18 09:26 11/08/18 09:26 11/08/18 09:26 Vital Signs Reviewed: Yes Appearance: Positive: Well-Appearing, Well-Nourished Skin: Positive: Warm, Skin Color Reflects Adequate Perfusion Head/Face: Positive: Normal Head/Face Inspection Eyes: Positive: EOMI, OMID, Conjunctiva Clear Neck: Positive: Supple, No Lymphadenopathy Respiratory/Lung Sounds: Positive: Clear to Auscultation, Breath Sounds Present Cardiovascular: Positive: RRR, Pulses are Symmetrical in both Upper and Lower Extremities Musculoskeletal: Positive: Strength/ROM Intact Neurological: Positive: Speech Normal Psychiatric: Positive: Normal, Affect/Mood Appropriate AVPU Assessment: Alert Diagnostics - Vital Signs Vital Signs Temp Pulse Resp BP Pulse Ox 11/08/18 09:26 97.6 F 76 16 159/83 100 - Laboratory Lab Results: Lab Results 11/08/18 11/08/18 11/08/18 Range/Units 09:37 09:37 09:37 WBC 9.7 (3.5-10.8) 10^3/uL RBC 4.35 (3.70-4.87) 10^6 /uL Hgb 14.1 (12.0-16.0) g/dL Hct 41 (33-41) % MCV 95 (80-97) fL MCH 32 H (27-31) pg MCHC 34 (31-36) g/dL RDW 13 (10.5-15) % Plt Count 300 (150-450) 10^3/uL MPV 7.4 (7.4-10.4) fL Neut % (Auto) 80.2 % Lymph % (Auto) 14.2 % Luna % (Auto) 4.4 % Eos % (Auto) 0.6 % Baso % (Auto) 0.6 % Absolute Neuts (auto) 7.8 H (1.5-7.7) 10^3/ul Absolute Lymphs (auto) 1.4 (1.0-4.8) 10^3/ul Absolute Monos (auto) 0.4 (0-0.8) 10^3/ul Absolute Eos (auto) 0.1 (0-0.6) 10^3/ul Absolute Basos (auto) 0.1 (0-0.2) 10^3/ul Absolute Nucleated RBC 0 10^3/ul Nucleated RBC % 0 INR (Anticoag Therapy) (0.77-1.02) Sodium 141 (135-145) mmol/L Potassium 3.7 (3.5-5.0) mmol/L Chloride 102 (101-111) mmol/L Carbon Dioxide 30 (22-32) mmol/L Anion Gap 9 (2-11) mmol/L BUN 17 (6-24) mg/dL Creatinine 0.77 (0.51-0.95) mg/dL Est GFR ( Amer) 94.9 (>60) Est GFR (Non-Af Amer) 78.4 (>60) BUN/Creatinine Ratio 22.1 H (8-20) Glucose 96 (70-100) mg/dL Lactic Acid 2.1 H* (0.5-2.0) mmol/L Calcium 9.5 (8.6-10.3) mg/dL Magnesium 2.0 (1.9-2.7) mg/dL Total Bilirubin 0.40 (0.2-1.0) mg/dL AST 23 (13-39) U/L ALT 15 (7-52) U/L Alkaline Phosphatase 82 (34-104) U/L Troponin I 0.00 (<0.04) ng/mL Total Protein 7.0 (6.4-8.9) g/dL Albumin 4.5 (3.2-5.2) g/dL Globulin 2.5 (2-4) g/dL Albumin/Globulin Ratio 1.8 (1-3) Beta HCG, Quant 2.60 mIU/mL 11/08/18 Range/Units 09:37 WBC (3.5-10.8) 10^3/uL RBC (3.70-4.87) 10^6 /uL Hgb (12.0-16.0) g/dL Hct (33-41) % MCV (80-97) fL MCH (27-31) pg MCHC (31-36) g/dL RDW (10.5-15) % Plt Count (150-450) 10^3/uL MPV (7.4-10.4) fL Neut % (Auto) % Lymph % (Auto) % Luna % (Auto) % Eos % (Auto) % Baso % (Auto) % Absolute Neuts (auto) (1.5-7.7) 10^3/ul Absolute Lymphs (auto) (1.0-4.8) 10^3/ul Absolute Monos (auto) (0-0.8) 10^3/ul Absolute Eos (auto) (0-0.6) 10^3/ul Absolute Basos (auto) (0-0.2) 10^3/ul Absolute Nucleated RBC 10^3/ul Nucleated RBC % INR (Anticoag Therapy) 0.86 (0.77-1.02) Sodium (135-145) mmol/L Potassium (3.5-5.0) mmol/L Chloride (101-111) mmol/L Carbon Dioxide (22-32) mmol/L Anion Gap (2-11) mmol/L BUN (6-24) mg/dL Creatinine (0.51-0.95) mg/dL Est GFR ( Amer) (>60) Est GFR (Non-Af Amer) (>60) BUN/Creatinine Ratio (8-20) Glucose (70-100) mg/dL Lactic Acid (0.5-2.0) mmol/L Calcium (8.6-10.3) mg/dL Magnesium (1.9-2.7) mg/dL Total Bilirubin (0.2-1.0) mg/dL AST (13-39) U/L ALT (7-52) U/L Alkaline Phosphatase (34-104) U/L Troponin I (<0.04) ng/mL Total Protein (6.4-8.9) g/dL Albumin (3.2-5.2) g/dL Globulin (2-4) g/dL Albumin/Globulin Ratio (1-3) Beta HCG, Quant mIU/mL Result Diagrams: 11/08/18 09:37 11/08/18 09:37 Lab Statement: Any lab studies that have been ordered have been reviewed, and results considered in the medical decision making process. Chest Pain Course/Dx - Course Course Of Treatment: During the course of treatment, the patient is evaluated for acute onset chest pain. This was approximately 15 minutes, rated a 5/10, constant and aching to the midsternal region while at work. Non-radiating. sxs resolved sponataneously but she was given aspirin 324mg chewable by EMS. She denies sxs currently. She was also endorsing bilateral hand tingling which is also since resolved. Labs obtained which are all WNL including a troponin of 0.00. Patient is requesting a test which is 2.60. Lactic acid 2.1 , however patient continues to eat and drink okay. She is drinking currently. Urinalysis shows no evidence of infection. She will be discharged with the diagnosis of atypical chest pain. I discussed with the patient this is likely due to her anxiety symptoms, but if she has any worsening or changing symptoms, she will follow back up with her PCP. - Diagnoses Provider Diagnoses: Chest pain, atypical Discharge - Sign-Out/Discharge Documenting (check all that apply): Patient Departure Patient Received Moderate/Deep Sedation with Procedure: No - Discharge Plan Condition: Stable Disposition: HOME Patient Education Materials: Angina (ED) Forms: *Work Release Referrals: Laurent Perdomo MD [Primary Care Provider] - Additional Instructions: Please follow-up with your PCP No abnormal findings on today's visit as discussed Rest and continue your at home medications as prescribed - Billing Disposition and Condition Condition: STABLE Disposition: Home
[2018-11-08 10:54] LABS: Urine Appearance Clear; Urine Bilirubin Negative (Negative); Urine Blood Negative (Negative); Urine Color Yellow; Urine Glucose Negative (Negative); Urine Ketones Negative (Negative); Urine Nitrite Negative (Negative); Urine Protein Negative (Negative); Urine Specific Gravity 1.002 (1.010-1.030); Urine Urobilinogen Negative (Negative)
== END 2018-11-08 10:37 | disposition home or self-care (01) ==
LOC: ED 09:20
DX: R07.89 Other chest pain (principal); F17.210 Nicotine dependence, cigarettes, uncomplicated; E78.00 Pure hypercholesterolemia, unspecified; J44.9 Chronic obstructive pulmonary disease, unspecified; I12.9 Hypertensive chronic kidney disease with stage 1 through stage 4 chronic kidney disease, or unspecified chronic kidney disease; E11.22 Type 2 diabetes mellitus with diabetic chronic kidney disease; N18.3 Chronic kidney disease, stage 3 (moderate); F31.9 Bipolar disorder, unspecified; Z79.82 Long term (current) use of aspirin
CPT/HCPCS: 36415; 71046; 80053; 81003; 83605; 83735; 84484; 84702; 85025; 85610; 93005; 99283

== ENCOUNTER 2019-06-27 14:10 | Emergency (ER) | payer BC ==
--- NOTE | 2019-06-27 16:10 | ED ---
Abdominal Pain/Female - HPI Summary HPI Summary: Patient is a 54 y/o F presenting to the ED for a chief complaint of intermittent diffuse abdominal pain that began on 06/25/19. The abdominal pain radiates to the back and worsens with movement. Patient rates the pain as 9/10 in severity. Pt denies any fever, chills, erythema of eyes, sore throat, CP, SOB , cough, N/V, diarrhea, dysuria, hematuria, urinary burning, urinary frequency, edema, rash, or dizziness. Patient took ibuprofen 800 mg without relief of symptoms. Patient admits a PMHx of kidney stones and UTI. Patient sees Dr. Laurent Perdomo. - History of Current Complaint Chief Complaint: EDAbdPain Stated Complaint: ABD PAIN , PELVIC PAIN Time Seen by Provider: 06/27/19 16:05 Hx Obtained From: Patient Hx Last Menstrual Period: menopausal- last period was 6 years ago Onset/Duration: Sudden Onset, Lasting Days - Since 06/25/19, Still Present Timing: Days - Since 06/25/19 Severity Initially: Severe Severity Currently: Severe Pain Intensity: 9 Pain Scale Used: 0-10 Numeric Radiates: Yes Radiates to: Back Aggravating Factor(s): Nothing Alleviating Factor(s): Nothing Associated Signs and Symptoms: Positive: Back Pain - Radiates from abdomen. Negative: Fever, Cough, Chest Pain, Dizzy, Urinary Symptoms - Negative dysuria, hematuria, urinary burning, or urinary frequency, Nausea, Vomiting, Diarrhea Allergies/Adverse Reactions: Allergies Allergy/AdvReac Type Severity Reaction Status Date / Time Adhesive Tape Allergy Intermediate Rash Verified 08/03/17 23:28 loratadine Allergy Rash Verified 11/08/18 09:38 omeprazole Allergy Hives Verified 11/08/18 09:38 pantoprazole Allergy Hives Verified 11/08/18 09:38 PMH/Surg Hx/FS Hx/Imm Hx Previously Healthy: Yes Endocrine/Hematology History: Reports: Hx Diabetes, Hx Thyroid Disease Denies: Hx Anticoagulant Therapy Cardiovascular History: Reports: Hx Hypercholesterolemia Denies: Hx Congestive Heart Failure, Hx Deep Vein Thrombosis, Hx Hypertension , Hx Myocardial Infarction, Hx Pacemaker/ICD Respiratory History: Reports: Hx Asthma, Hx Chronic Obstructive Pulmonary Disease (COPD) Denies: Hx Lung Cancer, Hx Pneumonia, Hx Pulmonary Embolism GI History: Reports: Other GI Disorders - hemorrhoids Denies: Hx Gall Bladder Disease, Hx Gastrointestinal Bleed, Hx Ulcer, Hx Urosepsis History: Reports: Hx Renal Disease - STAGE 3 RENAL DISEASE Denies: Hx Kidney Stones Sensory History: Denies: Hx Legally Blind, Hx Deafness, Hx Hearing Aid Opthamlomology History: Denies: Hx Legally Blind EENT History: Denies: Hx Deafness Neurological History: Denies: Hx Dementia, Hx Migraine, Hx Seizures, Hx Transient Ischemic Attacks (TIA) Psychiatric History: Reports: Hx Panic Disorder, Hx Bipolar Disorder Denies: Hx Anxiety, Hx Eating Disorder, Hx Depression, Hx Schizophrenia, Hx of Violent Episodes Against Others - Surgical History Surgical History: Yes Surgery Procedure, Year, and Place: tubal ligation, uterine ablation 2011 Infectious Disease History: No Infectious Disease History: Denies: Hx Clostridium Difficile, Hx Hepatitis, Hx Human Immunodeficiency Virus (HIV), Hx of Known/Suspected MRSA, Hx Shingles, Hx Tuberculosis, Hx Known/ Suspected VRE, Hx Known/Suspected VRSA, History Other Infectious Disease, Traveled Outside the [place] in Last 30 Days - Family History Known Family History: Positive: Cardiac Disease, Hypertension, Diabetes - Social History Occupation: Employed Full-time Lives: With Family Alcohol Use: None Hx Substance Use: No Substance Use Type: Reports: None Hx Tobacco Use: Yes Smoking Status (MU): Heavy Every Day Tobacco Smoker Type: Cigarettes Amount Used/How Often: 1/2 PPD Length of Time of Smoking/Using Tobacco: since age 12 Review of Systems Negative: Fever, Chills Negative: Erythema Negative: Sore Throat Negative: Chest Pain Negative: Shortness Of Breath, Cough Positive: Abdominal Pain - Diffuse. Negative: Vomiting, Diarrhea, Nausea Negative: burning - Urinary, dysuria, frequency - Urinary, hematuria Positive: Myalgia - Back pain radiates from abdomen. Negative: Edema Negative: Rash Neurological: Other - Negative dizziness All Other Systems Reviewed And Are Negative: Yes Physical Exam - Summary Physical Exam Summary: Constitutional: Well-developed, Well-nourished, Alert. (-) Distressed Skin: Warm, Dry HENT: Normocephalic; Atraumatic Eyes: Conjunctiva normal Neck: Musculoskeletal ROM normal neck. (-) JVD, (-) Stridor, (-) Tracheal deviation Cardio: Rhythm regular, rate normal, Heart sounds normal; Intact distal pulses; The pedal pulses are 2+ and symmetric. Radial pulses are 2+ and symmetric. (-) Murmur Pulmonary/Chest wall: Effort normal. (-) Respiratory distress, (-) Wheezes, (-) Rales Abd: Soft, (-) Distension, (-) Guarding, (-) Rebound. Suprapubic tenderness Musculoskeletal: (-) Edema Lymph: (-) Cervical adenopathy Neuro: Alert, Oriented x3 Psych: Mood and affect Normal Triage Information Reviewed: Yes Vital Signs On Initial Exam: Initial Vitals Temp Pulse Resp BP Pulse Ox 98.4 F 86 14 157/87 99 06/27/19 14:11 06/27/19 14:11 06/27/19 14:11 06/27/19 14:11 06/27/19 14:11 Vital Signs Reviewed: Yes Procedures - Sedation Patient Received Moderate/Deep Sedation with Procedure: No Diagnostics - Vital Signs Vital Signs Temp Pulse Resp BP Pulse Ox 06/27/19 14:11 98.4 F 86 14 157/87 99 - Laboratory Result Diagrams: 06/27/19 16:48 06/27/19 16:48 Lab Statement: Any lab studies that have been ordered have been reviewed, and results considered in the medical decision making process. - CT Abdomen/Pelvis CT CT Interpretation Completed By: Radiologist Summary of CT Findings: Abdomen/Pelvis CT IMPRESSION: LIMITED EVALUATION WITHOUT IV OR ORAL CONTRAST. NO CLEAR ETIOLOGY FOR THE PATIENT'S SYMPTOMS. Reviewed by ED physician. Abdominal Pain Fem Course/Dx - Course Course Of Treatment: Patient is a 54 y/o F presenting to the ED for a chief complaint of intermittent diffuse abdominal pain that began on 06/25/19. The abdominal pain radiates to the back and worsens with movement. Patient rates the pain as 9/10 in severity. Pt denies any fever, chills, erythema of eyes, sore throat, CP, SOB, cough, N/V, diarrhea, dysuria, hematuria, urinary burning , urinary frequency, edema, rash, or dizziness. Patient took ibuprofen 800 mg without relief of symptoms. Patient admits a PMHx of kidney stones and UTI. On exam, suprapubic tenderness. In the ED course, patient was given tramadol 50 mg PO and trimethoprim 1 tab PO. Laboratory abnormal findings: MCH 32, potassium 3.3, BUN 25, BUN/creatinine ratio 36.2, glucose 157, urine leukocyte esterase 3+, urine WBC 3+, urine squamous epith cells present, hyaline casts present, and urine ascorbic acid present. Abdomen/Pelvis CT IMPRESSION: LIMITED EVALUATION WITHOUT IV OR ORAL CONTRAST. NO CLEAR ETIOLOGY FOR THE PATIENT'S SYMPTOMS. Patient will be discharged with a diagnosis of lower abdominal pain and UTI. Follow up with PCP in 1-3 days. - Diagnoses Provider Diagnoses: UTI (urinary tract infection), Lower abdominal pain Is Visit Related: No Discharge ED - Sign-Out/Discharge Documenting (check all that apply): Patient Departure - Discharge - Discharge Plan Condition: Stable Disposition: HOME Prescriptions: Sulfamethox/Trimethoprim DS* [Bactrim DS 800/160 TAB*] 1 tab PO BID #14 tab traMADol TAB* [Ultram*] 50 mg PO Q6HR PRN #10 tab MDD 4 PRN Reason: Pain - Severe Patient Education Materials: Urinary Tract Infection in Women (ED) Referrals: Laurent Perdomo MD [Primary Care Provider] - Additional Instructions: Follow up with your primary care provider in 1-3 days. Return to the Emergency Department for changing or worsening symptoms. - Attestation Statements Document Initiated by Scribe: Yes Documenting Scribe: Reav Claudio Provider For Whom Scribe is Documenting (Include Credential): Kuldip An MD Scribe Attestation: Reva Hayes, scribed for Kuldip An MD on 06/27/19 at 1804. Status of Scribe Document: Ready
[2019-06-27 16:38] LABS: Urine Appearance Cloudy; Urine Bacteria Absent (Absent); Urine Bilirubin Negative (Negative); Urine Blood Negative (Negative); Urine Color Yellow; Urine Glucose Negative (Negative); Urine Ketones Negative (Negative); Urine Nitrite Negative (Negative); Urine Protein Negative (Negative); Urine Red Blood Cell Absent (Absent); Urine Specific Gravity 1.023 (1.010-1.030); Urine Squamous Epithelial Cell Present (Absent); Urine Urobilinogen Negative (Negative); Urine White Blood Cell 3+(>20/hpf) (Absent)
[2019-06-27] MEDS ORDERED: Sulfamethox/Trimethoprim DS 800/160* TAB PO ONE (16:47)
[2019-06-27] MEDS ORDERED: traMADol TAB* 50 MG PO ONE (16:47)
[2019-06-27 16:55] LABS: ABS Basophils 0.1 10^3/ul (0-0.2); ABS Eosinophils 0.2 10^3/ul (0-0.6); ABS Lymphocytes 2.2 10^3/ul (1.0-4.8); ABS Monocytes 0.4 10^3/ul (0-0.8); ABS Neutrophils 5.8 10^3/ul (1.5-7.7); Eosinophil % 2.5 %; Hematocrit 40 % (35-47); Hemoglobin 13.6 g/dL (12.0-16.0); Lymphocyte % 25.5 %; Mean Corpuscular HGB Conc 34 g/dL (31-36); Mean Corpuscular Hemoglobin 32 pg (27-31); Mean Corpuscular Volume 96 fL (80-97); Mean Platelet Volume 7.8 fL (7.4-10.4); Nucleated Red Blood Cells % 0.1; Platelet Count 258 10^3/uL (150-450); Red Blood Count 4.22 10^6 /uL (3.70-4.87); Red Cell Distribution Width 12 % (10-15); White Blood Count 8.7 10^3/uL (3.5-10.8)
[2019-06-27 17:37] LABS: ALT 16 U/L (7-52); AST 16 U/L (13-39); Albumin 4.2 g/dL (3.2-5.2); Albumin/Globulin Ratio 1.8 (1-3); Alkaline Phosphatase 68 U/L (34-104); Anion Gap 7 mmol/L (2-11); BUN/Creatinine Ratio 36.2 (8-20); Blood Urea Nitrogen 25 mg/dL (6-24); C Reactive Protein < 1.00 mg/L (<8.01); CO2 Carbon Dioxide 30 mmol/L (22-32); Calcium 9.5 mg/dL (8.6-10.3); Chloride 104 mmol/L (101-111); EGFR African American 107.3 (>60); EGFR Non-African American 88.7 (>60); Globulin 2.4 g/dL (2-4); Glucose 157 mg/dL (70-100); Potassium 3.3 mmol/L (3.5-5.0); Sodium 141 mmol/L (135-145); Total Protein 6.6 g/dL (6.4-8.9)
[2019-06-27 18:29] VITALS: BP 117/71
== END 2019-06-27 18:29 | disposition home or self-care (01) ==
LOC: ED 14:10
DX: N39.0 Urinary tract infection, site not specified (principal); R10.30 Lower abdominal pain, unspecified; M54.9 Dorsalgia, unspecified; E11.22 Type 2 diabetes mellitus with diabetic chronic kidney disease; N18.3 Chronic kidney disease, stage 3 (moderate); J44.9 Chronic obstructive pulmonary disease, unspecified; Z87.440 Personal history of urinary (tract) infections; Z87.442 Personal history of urinary calculi; Z88.8 Allergy status to other drugs, medicaments and biological substances; Z91.048 Other nonmedicinal substance allergy status; F17.210 Nicotine dependence, cigarettes, uncomplicated
CPT/HCPCS: 36415; 74176; 80053; 81003; 81015; 83605; 83690; 85025; 86140; 87086; 99282; A9270-GY

== ENCOUNTER 2020-10-19 00:11 | Inpatient (IN) ==
[2020-10-19] MEDS ORDERED: NS 0.9% 1000 ml BAG 2,000 ML IV ONE (00:50)
[2020-10-19] MEDS ORDERED: Ondansetron 4 mg VIAL 2 MG/ML 2 ml VIAL IV ONE ×2 (01:24→02:16)
[2020-10-19 01:31] LABS: ABS Eosinophils 0.2 10^3/ul (0-0.6); ABS Lymphocytes 0.8 10^3/ul (1.0-4.8); ABS Monocytes 0.3 10^3/ul (0-0.8); Eosinophil % 2.7 %; Hematocrit 34 % (35-47); Hemoglobin 11.8 g/dL (12.0-16.0); Lymphocyte % 12.3 %; Mean Corpuscular HGB Conc 35 g/dL (31-36); Mean Corpuscular Hemoglobin 32 pg (27-31); Mean Corpuscular Volume 91 fL (80-97); Platelet Count 301 10^3/uL (150-450); Red Blood Count 3.71 10^6 /uL (3.70-4.87); Red Cell Distribution Width 13 % (10-15); White Blood Count 6.2 10^3/uL (3.5-10.8)
[2020-10-19 01:44] LABS: Activated Partial Thrombo Time 32.1 seconds (26.0-38.0); INR 0.91 (0.82-1.09)
[2020-10-19 01:49] LABS: ALT 23 U/L (7-52); AST 27 U/L (13-39); Albumin 4.1 g/dL (3.2-5.2); Albumin/Globulin Ratio 1.8 (1-3); Alkaline Phosphatase 72 U/L (34-104); Anion Gap 9 mmol/L (2-11); BUN/Creatinine Ratio 21.6 (8-20); Blood Urea Nitrogen 16 mg/dL (6-24); CO2 Carbon Dioxide 30 mmol/L (22-32); Calcium 9.3 mg/dL (8.6-10.3); Chloride 94 mmol/L (101-111); EGFR African American 98.6 (>60); EGFR Non-African American 81.5 (>60); Globulin 2.3 g/dL (2-4); Glucose 126 mg/dL (70-100); Lipase 37 U/L (11.0-82.0); Potassium 3.1 mmol/L (3.5-5.0); Sodium 133 mmol/L (135-145); Total Protein 6.4 g/dL (6.4-8.9)
[2020-10-19 01:54] LABS: Troponin I 0.05 ng/mL (<0.03)
[2020-10-19] MEDS ORDERED: Ondansetron 4 mg VIAL 2 MG/ML 2 ml VIAL ONE (02:18)
[2020-10-19 02:22] LABS: Magnesium 1.6 mg/dL (1.9-2.7)
[2020-10-19] MEDS ORDERED: Magnesium Sulfate 2 gm BAG 2 GM/50 ML BAG IVPB ONE (02:22)
[2020-10-19] MEDS ORDERED: Iodixanol (CONTRAST) 320 MG/ML 100 ML SDV IV ONE (02:59)
[2020-10-19] MEDS: KCL 20 MEQ/100 ML IVPREMIX 20 MEQ/100 ML BAG IV SCH ×2 (03:45→06:53)
[2020-10-19] MEDS ORDERED: NS 0.9% 1000 ml BAG 1,000 ML IV SCH (05:15)
[2020-10-19] MEDS ORDERED: Ondansetron 4 mg VIAL 2 MG/ML 2 ml VIAL IV PRN (06:32)
[2020-10-19] MEDS ORDERED: Morphine 2 MG/ML SYRINGE IV PRN (06:32)
[2020-10-19 06:56] LABS: Troponin I 0.04 ng/mL (<0.03)
[2020-10-19] MEDS ORDERED: Prochlorperazine 5 mg/ml 2 ml VIAL (10 mg) IV PRN (09:16)
[2020-10-19 09:39] LABS: BUN/Creatinine Ratio 15.9 (8-20); Calcium 8.7 mg/dL (8.6-10.3); EGFR African American 118.7 (>60); EGFR Non-African American 98.1 (>60); Potassium 4.1 mmol/L (3.5-5.0)
[2020-10-19] MEDS: Heparin 5000 UNITS/ML 1 mL VIAL SUBCUT SCH ×3 (10:10→20:45)
[2020-10-19] MEDS: Levothyroxine 100 MCG/5 ML VIAL IV SCH (10:23)
[2020-10-19] MEDS ORDERED: Pantoprazole VIAL 40 MG VIAL IV SCH (11:00)
[2020-10-19] MEDS: NS 0.9% 1000 ml BAG 1,000 ML IV SCH (14:59)
[2020-10-19] MEDS ORDERED: Dextrose 50% Syringe 50 ml 25 GM/50 ML SYRINGE IV PUSH PRN (16:36)
[2020-10-20] MEDS: NS 0.9% 1000 ml BAG 1,000 ML IV SCH (03:39)
[2020-10-20] MEDS: Heparin 5000 UNITS/ML 1 mL VIAL SUBCUT SCH ×3 (06:24→22:49)
[2020-10-20] MEDS: Levothyroxine 100 MCG/5 ML VIAL IV SCH (06:24)
[2020-10-20 06:26] LABS: ABS Eosinophils 0.3 10^3/ul (0-0.6); ABS Lymphocytes 1.5 10^3/ul (1.0-4.8); ABS Monocytes 0.3 10^3/ul (0-0.8); ABS Neutrophils 2.8 10^3/ul (1.5-7.7); Eosinophil % 6.3 %; Hematocrit 29 % (35-47); Hemoglobin 10.1 g/dL (12.0-16.0); Lymphocyte % 30.3 %; Mean Corpuscular HGB Conc 34 g/dL (31-36); Mean Corpuscular Hemoglobin 32 pg (27-31); Mean Corpuscular Volume 93 fL (80-97); Mean Platelet Volume 7.1 fL (7.4-10.4); Platelet Count 252 10^3/uL (150-450); Red Blood Count 3.18 10^6 /uL (3.70-4.87); Red Cell Distribution Width 13 % (10-15)
[2020-10-20 06:42] LABS: BUN/Creatinine Ratio 17.5 (8-20); Calcium 8.2 mg/dL (8.6-10.3); EGFR African American 133.2 (>60); EGFR Non-African American 110.1 (>60); Potassium 3.9 mmol/L (3.5-5.0)
[2020-10-20] MEDS ORDERED: NS 0.9% 1000 ml BAG 1,000 ML IV SCH (16:15)
[2020-10-20] MEDS ORDERED: Albuterol HFA INHALER 8 gm MDI INH PRN (16:16)
[2020-10-21] MEDS: Heparin 5000 UNITS/ML 1 mL VIAL SUBCUT SCH ×2 (05:50→13:31)
[2020-10-21 15:50] VITALS: BP 166/76
== END 2020-10-21 16:44 | disposition home or self-care (01) | DRG 247 ==
LOC: ED 00:11 → MED 00:11 → OBSVTOIN 05:14 → MED 08:09
PROVIDERS: ADMIT Internal Medicine; ATTEND Internal Medicine